=== PATIENT | female | born 1945 | race Caucasian/White ===

== ENCOUNTER 2018-02-20 14:30 | Outpatient (RCR) | payer MEDICARE, SELFPAY ==
[2018-01-14 04:26] VITALS: TEMP 37.1
--- NOTE | 2018-01-21 15:29 | PT.OIE ---
Current Diagnoses Pain in left hip (01/21/18) Low back pain (01/21/18) Past Medical History (Last Updated 01/14/18 @ 03:14 by Luis Zamudio DO) Gout (Acute) Physical Therapy Initial Evaluation PT-OP-B Current Condition Start: 01/21/18 13:35 Freq: Status: Active Protocol: Activity Type Activity Date Activity User E-Sign Co-Sign Detail Recorded Client Recorded Date Recorded By Document 01/21/18 13:39 EA [id number] 01/21/18 13:45 EA 01/21/18 13:39 Current Condition [History of Current Condition] -Onset Date 08/2017 -Current Complaints 1. Localized low back pain 2. left hip pain -History of Current Condition Patient reports left hip pain onset abruptly with no injury or past surgery to left LE and back; states chronic back pain with onset years ago w regular 2 x a week of chriropractor service that helps temporarily. Left hip pain aggravates weight bering mobility and relief w/ rest. Patient reports x-rays taken to hip and back with degenerative jont disease. -Prior Treatments and Tests Left knee meniscus PT treatment 2015 [Treatment Goals] -Patient/Caregiver Goals Patient wants to decrease pain to left hip and low back minimally. [Prior Functional Status] -Baseline Function- ADL's Independent -Baseline Function- Recreation/Hobbies Pool exercises x 3-4 /week [Personal Factors] -Other Personal Factors That May Obesity; Effect Therapy/Recovery chronic symtoms . PT-OP-C Subjective Start: 01/21/18 13:35 Freq: Status: Active Protocol: Activity Type Activity Date Activity User E-Sign Co-Sign Detail Recorded Client Recorded Date Recorded By Document 01/21/18 13:50 MARTÍN [id number] 01/21/18 15:13 EA 01/21/18 13:50 OP-PT Subjective [Patient Comments] -Patient Comments Patient c/o difficulty of sleeping at night and walking due to localized back pain rated 7/10 and left hip/ inner thigh pain rated 5/10 Patient Questionnaires [Oswestry Low Back Index] -Oswestry Impairment 40 to 59% Impaired (Score 40-59) OP-PT Pain Assessment [Pain Assessment Grid] -Paper Pain Assessment Grid Completed Yes [Location] Left Groin -Description Sharp Tender With Movement -Frequency Intermittent -Pain Aggravating Factors Standing Walking Stair Climbing -Pain Alleviating Factors Medication Lower Back -Description Aching Tightness -Frequency Intermittent -Pain Aggravating Factors Position Walking -Pain Alleviating Factors Medication [Home Pain Medication Use] -Pain Medications Used Yes [Pain Behaviors] -Pain Behaviors Guarding PT-OP-J Posture/Palpation/Skin Start: 01/21/18 13:35 Freq: Status: Active Protocol: Activity Type Activity Date Activity User E-Sign Co-Sign Detail Recorded Client Recorded Date Recorded By Document 01/21/18 13:50 MARTÍN [id number] 01/21/18 15:13 EA 01/21/18 13:50 Posture Evaluation [Position] Standing -Evaluation View Lateral -L-Spine Posture Increased Lordosis -Pelvis Posture (L) Rotated Anterior (R) Rotated Anterior -Hip Posture (L) Flexed -Knee Posture (L) Genu Valgus (R) Genu Valgus Palpation Assessment [Location] Two -Palpation Location Left hip adductors. -Palpation Findings Tenderness One -Palpation Location Biletaral paralumbars, upper glueteals , periformis -Palpation Findings Tenderness PT-OP-K Range of Motion Start: 01/21/18 13:35 Freq: Status: Active Protocol: Activity Type Activity Date Activity User E-Sign Co-Sign Detail Recorded Client Recorded Date Recorded By Document 01/21/18 13:50 MARTÍN [id number] 01/21/18 15:13 EA 01/21/18 13:50 Lumbar Spine Range of Motion [Lumbar Spine] Active Percentage -Testing Position standing -Flexion 85 -Extension 85 -Rotation Left 75 -Rotation Right 75 -Lateral Flexion Left 60 -Lateral Flexion Right 60 -ROM Limitations Soft Tissue Tightness Pain Hip Goniometric Range of Motion [Hip] Measured in Degrees Left -Testing Position Supine -Abduction 30 [Hip ROM Limitations] -Hip ROM Limitations Soft Tissue Tightness Pain PT-OP-M Strength Start: 01/21/18 13:35 Freq: Status: Active Protocol: Activity Type Activity Date Activity User E-Sign Co-Sign Detail Recorded Client Recorded Date Recorded By Document 01/21/18 13:50 MARTÍN [id number] 01/21/18 15:13 EA 01/21/18 13:50 Trunk Strength [Trunk Manual Muscle Testing] -Flexion 3- Fair- -Extension 3- Fair- -Rotation Left 3- Fair- -Rotation Right 3- Fair- -Lateral Flexion Left 3- Fair- -Lateral Flexion Right 3- Fair- Hip Strength [Hip Manual Muscle Testing] Left -Flexion (L2) 4+ Good+ -Extension (S1) 4+ Good+ -Abduction 4+ Good+ -Adduction 3- Fair- -External Rotation 4+ Good+ -Internal Rotation 4+ Good+ PT-OP-Q Treatments Start: 01/21/18 13:35 Freq: Status: Active Protocol: Activity Type Activity Date Activity User E-Sign Co-Sign Detail Recorded Client Recorded Date Recorded By Document 01/21/18 13:50 EA [id number] 01/21/18 15:13 EA 01/21/18 13:50 Self-Care/Home Management Treatment [Education] -Patient Education Body Mechanics Home Exercise Program Pain Management PT-OP-T Assessment and Plan Start: 01/21/18 13:35 Freq: Status: Active Protocol: Activity Type Activity Date Activity User E-Sign Co-Sign Detail Recorded Client Recorded Date Recorded By Document 01/21/18 13:50 EA [id number] 01/21/18 15:13 EA 01/21/18 13:50 Physical Therapy Assessment [Rehab Potential] -Rehabilitation Potential Fair [Evaluation Complexity] -Number of Personal Factors/ 3 or More Comorbidities -Number of Body Systems Impaired 3 -Clinical Presentation at Evaluation Evolving [Impairments] -Impairments Activity Tolerance Pain Posture ROM Strength [Goals] Three -Impairment Left hip ADD weakness -Welding [employer] Goal (LTG) Patient will exhibits 4/5 strength to left hip ADD w/ no pain. Two -Impairment Posture: Increased lumbar lordosis -Welding [employer] Goal (LTG) Patient will exhibit neutral lumbar lordosis to prevent further beomechanical spinal joint stress. -LTG Duration 4 wks One -Impairment Moderate left hip and low back tenderness -Welding [employer] Goal (LTG) Patient will exhibits slight tenderness to left hip and low back area to enable patient perform functional activities with increase tolerance. -LTG Duration 4 weeks [Assessment Summary] -Assessment Pleasant 72 y/o F patient with a diagnosis of localized left hip pain and low back pain presented w/ signs and symptoms consistent with special test to mechanical low back and strain to left hip adductor. Due to this pain, patient seating, standing and weight bearin functional is limited. In my professional opinion, patient requires skilled PT for the duration of 8 weeks to address the aforementioned issues. Due to comorbidities and chronicity of condition, patient have fair potential for recovery. Physical Therapy Plan [Frequency and Duration] -Frequency of Treatment 2x/Week -Plan of Care Start Date 01/21/18 -Plan of Care End Date 03/18/18 [Therapeutic Interventions] -Therapeutic Interventions Home Exercise Program Joint Mobilizations Manual Therapy Self-Care/Home Management Soft Tissue Mobilization Therapeutic Exercises -Modalities Cold Pack/Ice Massage Electric Stimulation Hot Packs Ultrasound Provider Signature Date
--- NOTE | 2018-01-21 15:30 | PT.OPPOC ---
Current Diagnoses Pain in left hip (01/21/18) Low back pain (01/21/18) Provider Visit Care Team Role Provider Type Nichol Robles MD Attending Provider Physician Family Provider Primary Care Provider Specialty: Internal Medicine Address: [address] [place] [address], [id number] Email: Plan Of Care PT-OP-T Assessment and Plan Start: 01/21/18 13:35 Freq: Status: Active Protocol: Document 01/21/18 13:50 EA (Rec: 01/21/18 15:13 EA [id number]) Physical Therapy Assessment Rehab Potential Rehabilitation Potential Fair Evaluation Complexity Number of Personal Factors/Comorbidities 3 or More Number of Body Systems Impaired 3 Clinical Presentation at Evaluation Evolving Impairments Impairments Activity Tolerance Pain Posture ROM Strength Goals Three Impairment Left hip ADD weakness Skilled Nursing Goal (LTG) Patient will exhibits 4/5 strength to left hip ADD w/ no pain. Two Impairment Posture: Increased lumbar lordosis Skilled Nursing Goal (LTG) Patient will exhibit neutral lumbar lordosis to prevent further beomechanical spinal joint stress. LTG Duration 4 wks One Impairment Moderate left hip and low back tenderness Skilled Nursing Goal (LTG) Patient will exhibits slight tenderness to left hip and low back area to enable patient perform functional activities with increase tolerance. LTG Duration 4 weeks Assessment Summary Assessment Pleasant 72 y/o F patient with a diagnosis of localized left hip pain and low back pain presented w/ signs and symptoms consistent with special test to mechanical low back and strain to left hip adductor. Due to this pain, patient seating, standing and weight bearin functional is limited. In my professional opinion, patient requires skilled PT for the duration of 8 weeks to address the aforementioned issues. Due to comorbidities and chronicity of condition, patient have fair potential for recovery. Physical Therapy Plan Frequency and Duration Frequency of Treatment 2x/Week Plan of Care Start Date 01/21/18 Plan of Care End Date 03/18/18 Therapeutic Interventions Therapeutic Interventions Home Exercise Program Joint Mobilizations Manual Therapy Self-Care/Home Management Soft Tissue Mobilization Therapeutic Exercises Modalities Cold Pack/Ice Massage Electric Stimulation Hot Packs Ultrasound Plan of Care Dates Plan of Care Start Date 01/21/18 Plan of Care End Date 03/18/18 Please Sign and Return: I have reviewed this Plan of Care and certify that the skilled therapy services above are required to meet the patient???s needs. Physician Signature Date Printed Name and Credentials
--- NOTE | 2018-01-23 17:22 | PT.OTN ---
Physical Therapy Treatment Note PT-OP-B Current Condition Start: 01/21/18 13:35 Freq: Status: Active Protocol: Document 01/21/18 13:39 EA (Rec: 01/21/18 13:45 EA [id number]) Current Condition History of Current Condition Onset Date 08/2017 Current Complaints 1. Localized low back pain 2. left hip pain History of Current Condition Patient reports left hip pain onset abruptly with no injury or past surgery to left LE and back; states chronic back pain with onset years ago w regular 2 x a week of chriropractor service that helps temporarily . Left hip pain aggravates weight bering mobility and relief w/ rest. Patient reports x-rays taken to hip and back with degenerative jont disease. Prior Treatments and Tests Left knee meniscus PT treatment 2015 Treatment Goals Patient/Caregiver Goals Patient wants to decrease pain to left hip and low back minimally. Prior Functional Status Baseline Function- ADL's Independent Baseline Function- Recreation/Hobbies Pool exercises x 3-4 /week Personal Factors Other Personal Factors That May Effect Obesity; chronic symtoms. Therapy/Recovery PT-OP-C Subjective Start: 01/21/18 13:35 Freq: Status: Active Protocol: Document 01/23/18 14:30 GGD (Rec: 01/23/18 17:22 GGD [id number]) OP-PT Subjective Patient Comments Patient Comments Pt state she is having pain into her groin today. PT-OP-J Posture/Palpation/Skin Start: 01/21/18 13:35 Freq: Status: Active Protocol: Document 01/21/18 13:50 EA (Rec: 01/21/18 15:13 EA [id number]) Posture Evaluation Position Standing Evaluation View Lateral L-Spine Posture Increased Lordosis Pelvis Posture (L) Rotated Anterior (R) Rotated Anterior Hip Posture (L) Flexed Knee Posture (L) Genu Valgus (R) Genu Valgus Palpation Assessment Location Two Palpation Location Left hip adductors. Palpation Findings Tenderness One Palpation Location Biletaral paralumbars, upper glueteals, periformis Palpation Findings Tenderness PT-OP-K Range of Motion Start: 01/21/18 13:35 Freq: Status: Active Protocol: Document 01/21/18 13:50 EA (Rec: 01/21/18 15:13 EA [id number]) Lumbar Spine Range of Motion Lumbar Spine Active Percentage Testing Position standing Flexion 85 Extension 85 Rotation Left 75 Rotation Right 75 Lateral Flexion Left 60 Lateral Flexion Right 60 ROM Limitations Soft Tissue Tightness Pain Hip Goniometric Range of Motion Hip Measured in Degrees Left Testing Position Supine Abduction 30 Hip ROM Limitations Hip ROM Limitations Soft Tissue Tightness Pain PT-OP-M Strength Start: 01/21/18 13:35 Freq: Status: Active Protocol: Document 01/21/18 13:50 EA (Rec: 01/21/18 15:13 EA [id number]) Trunk Strength Trunk Manual Muscle Testing Flexion 3- Fair- Extension 3- Fair- Rotation Left 3- Fair- Rotation Right 3- Fair- Lateral Flexion Left 3- Fair- Lateral Flexion Right 3- Fair- Hip Strength Hip Manual Muscle Testing Left Flexion (L2) 4+ Good+ Extension (S1) 4+ Good+ Abduction 4+ Good+ Adduction 3- Fair- External Rotation 4+ Good+ Internal Rotation 4+ Good+ PT-OP-Q Treatments Start: 01/21/18 13:35 Freq: Status: Active Protocol: Document 01/23/18 14:30 GGD (Rec: 01/23/18 17:22 GGD [email or web address]) Cardio Equipment Recumbent Elliptical ([employer]) Duration (Minutes) 6 Resistance 1 Therapeutic Exercises Supine Exercises 8 Supine Exercise Name Hip ABD Side bilateral Resistance Level 2 Equipment Used Thera band Reps/Minutes 10 7 Supine Exercise Name Hip add Side bilateral Equipment Used ball Reps/Minutes 10 6 Supine Exercise Name Bridges Reps/Minutes 10 5 Supine Exercise Name PPT Reps/Minutes 5 x 5 sec 4 Supine Exercise Name glute sets Side bilateral Reps/Minutes 5 x 5 sec 3 Supine Exercise Name adductor str Side bilateral Reps/Minutes 2 2 Supine Exercise Name Pirif str Side bilateral Reps/Minutes 2 1 Supine Exercise Name Hamstring str Side bilateral Reps/Minutes 2 PT-OP-R Modalities Start: 01/21/18 13:35 Freq: Status: Active Protocol: Document 01/23/18 14:30 GGD (Rec: 01/23/18 17:22 GGD [email or web address]) Hot Pack/Cold Pack Treatment Hot Pack Location L/S Patient Position Hooklying Treatment Duration (minutes) 10 Patient Tolerance Good PT-OP-T Assessment and Plan Start: 01/21/18 13:35 Freq: Status: Active Protocol: Document 01/23/18 14:30 GGD (Rec: 01/23/18 17:22 [email or web address] [email or web address]) Physical Therapy Assessment Assessment Summary Assessment Pt need modification for exercise tolerance. Was able to do all exercises with good pain control. Physical Therapy Plan Frequency and Duration Frequency of Treatment 2x/Week Plan of Care Start Date 01/21/18 Plan of Care End Date 03/18/18 Next Visit Focus/Plan Next Visit Plan Progress stretching, give HEP and hip strengthening.
--- NOTE | 2018-01-27 14:55 | PT.OTN ---
Physical Therapy Treatment Note PT-OP-A Visit Information Start: 01/21/18 13:35 Freq: Status: Active Protocol: Document 01/27/18 13:41 LRN (Rec: 01/27/18 14:48 LRN [id number]) Out-Patient Physical Therapy Visit Information Visit Information Visit Type Treatment Note Visit Start Time 13:40 Visit Stop Time 14:36 Total Visit Minutes 56 Visit Number 3 Number of PLANT AND EQUIPMENT WORKER Visits 1 Evaluation Information Evaluation Date 01/21/18 PT-OP-B Current Condition Start: 01/21/18 13:35 Freq: Status: Active Protocol: Document 01/21/18 13:39 EA (Rec: 01/21/18 13:45 EA [id number]) Current Condition History of Current Condition Onset Date 08/2017 Current Complaints 1. Localized low back pain 2. left hip pain History of Current Condition Patient reports left hip pain onset abruptly with no injury or past surgery to left LE and back; states chronic back pain with onset years ago w regular 2 x a week of chriropractor service that helps temporarily . Left hip pain aggravates weight bering mobility and relief w/ rest. Patient reports x-rays taken to hip and back with degenerative jont disease. Prior Treatments and Tests Left knee meniscus PT treatment 2016 Treatment Goals Patient/Caregiver Goals Patient wants to decrease pain to left hip and low back minimally. Prior Functional Status Baseline Function- ADL's Independent Baseline Function- Recreation/Hobbies Pool exercises x 3-4 /week Personal Factors Other Personal Factors That May Effect Obesity; chronic symtoms. Therapy/Recovery PT-OP-C Subjective Start: 01/21/18 13:35 Freq: Status: Active Protocol: Document 01/27/18 13:41 LRN (Rec: 01/27/18 14:45 LRN [id number]) OP-PT Subjective Patient Comments Patient Comments Terrible over the weekend due top L groin pain and LBP. Patient Reported Progress Same PT-OP-J Posture/Palpation/Skin Start: 01/21/18 13:35 Freq: Status: Active Protocol: Document 01/21/18 13:50 EA (Rec: 01/21/18 15:13 EA [id number]) Posture Evaluation Position Standing Evaluation View Lateral L-Spine Posture Increased Lordosis Pelvis Posture (L) Rotated Anterior (R) Rotated Anterior Hip Posture (L) Flexed Knee Posture (L) Genu Valgus (R) Genu Valgus Palpation Assessment Location Two Palpation Location Left hip adductors. Palpation Findings Tenderness One Palpation Location Bilateral paralumbars, upper gluteals, piriformis Palpation Findings Tenderness PT-OP-K Range of Motion Start: 01/21/18 13:35 Freq: Status: Active Protocol: Document 01/21/18 13:50 EA (Rec: 01/21/18 15:13 EA [id number]) Lumbar Spine Range of Motion Lumbar Spine Active Percentage Testing Position standing Flexion 85 Extension 85 Rotation Left 75 Rotation Right 75 Lateral Flexion Left 60 Lateral Flexion Right 60 ROM Limitations Soft Tissue Tightness Pain Hip Goniometric Range of Motion Hip Measured in Degrees Left Testing Position Supine Abduction 30 Hip ROM Limitations Hip ROM Limitations Soft Tissue Tightness Pain PT-OP-M Strength Start: 01/21/18 13:35 Freq: Status: Active Protocol: Document 01/21/18 13:50 EA (Rec: 01/21/18 15:13 EA [id number]) Trunk Strength Trunk Manual Muscle Testing Flexion 3- Fair- Extension 3- Fair- Rotation Left 3- Fair- Rotation Right 3- Fair- Lateral Flexion Left 3- Fair- Lateral Flexion Right 3- Fair- Hip Strength Hip Manual Muscle Testing Left Flexion (L2) 4+ Good+ Extension (S1) 4+ Good+ Abduction 4+ Good+ Adduction 3- Fair- External Rotation 4+ Good+ Internal Rotation 4+ Good+ PT-OP-Q Treatments Start: 01/21/18 13:35 Freq: Status: Active Protocol: Document 01/27/18 13:41 LRN (Rec: 01/27/18 14:45 LRN [id number]) Cardio Equipment Recumbent Elliptical ([employer]) Duration (Minutes) 6 Resistance 1 Seat Position 10 Other Mid range of leg motion Therapeutic Exercises Supine Exercises 10 Supine Exercise Name LE Roll in/out with deep breathing Side bilateral Reps/Minutes 10 reps Comments Extra reps with training 9 Supine Exercise Name DKTC stretch Side bilateral Reps/Minutes 8 3 Supine Exercise Name BKFO Side bilateral Reps/Minutes 1 rep Comments 60 sec hold 2 Supine Exercise Name Pirif str Side bilateral Reps/Minutes 2 1 Supine Exercise Name Hamstring str Side bilateral Reps/Minutes 3 reps each Comments 60 sec holds with 10 ankle pumps between 10 sec holds Manual Therapy Treatment Joint Mobilizations 1 Joint Correction for a posteriorly rotated L innominate Direction L SIJ Body Position Supine Reps/Duration 5 Comments Resist L hip flexion to rotate innominate anteriorly. Self-Care/Home Management Treatment Education Patient Education Home Exercise Program Other Education Issued and reviewed HEP of hip stretches: Drake BKFO, Fig 4, Piriformis, DKTC. PT-OP-R Modalities Start: 01/21/18 13:35 Freq: Status: Active Protocol: Document 01/27/18 13:41 LRN (Rec: 01/27/18 14:45 LRN [id number]) Hot Pack/Cold Pack Treatment Hot Pack Location L/S & L groin Patient Position Hooklying Treatment Duration (minutes) 10 Patient Tolerance Good PT-OP-T Assessment and Plan Start: 01/21/18 13:35 Freq: Status: Active Protocol: Document 01/27/18 13:41 LRN (Rec: 01/27/18 14:45 LRN [id number]) Physical Therapy Assessment Impairments Impairments Activity Tolerance Pain Posture ROM Strength Assessment Summary Assessment Pt appears to have a posteriorly rotated L innominate. She has fair to poor tolerance to exercise due to L hip limited mobility. Pt did not complain of much pain during stretches, but at end of ex's the pt reported being in a little more pain than when started with (7/10). She had + response to cryotherapy with a decrease i groin pain. Physical Therapy Plan Frequency and Duration Frequency of Treatment 2x/Week Plan of Care Start Date 01/21/18 Plan of Care End Date 03/18/18 Next Visit Focus/Plan Next Visit Plan Recheck pelvic positioning. Progress stretching, give HEP, hip strengthening as tolerated. Normalize posture. Teach proper transfers in/out of bed.
--- NOTE | 2018-01-29 17:07 | PT.OTN ---
Physical Therapy Treatment Note PT-OP-A Visit Information Start: 01/21/18 13:35 Freq: Status: Active Protocol: Document 01/29/18 16:57 GGD (Rec: 01/29/18 17:06 GGD [email or web address]) Out-Patient Physical Therapy Visit Information Visit Information Visit Type Treatment Note Visit Start Time 15:15 Visit Stop Time 16:10 Total Visit Minutes 50 Visit Number 4 Number of HAND THERMAL CUTTER Visits 1 Evaluation Information Evaluation Date 01/21/18 PT-OP-B Current Condition Start: 01/21/18 13:35 Freq: Status: Active Protocol: Document 01/21/18 13:39 EA (Rec: 01/21/18 13:45 EA [id number]) Current Condition History of Current Condition Onset Date 08/2017 Current Complaints 1. Localized low back pain 2. left hip pain History of Current Condition Patient reports left hip pain onset abruptly with no injury or past surgery to left LE and back; states chronic back pain with onset years ago w regular 2 x a week of chriropractor service that helps temporarily . Left hip pain aggravates weight bering mobility and relief w/ rest. Patient reports x-rays taken to hip and back with degenerative jont disease. Prior Treatments and Tests Left knee meniscus PT treatment 2016 Treatment Goals Patient/Caregiver Goals Patient wants to decrease pain to left hip and low back minimally. Prior Functional Status Baseline Function- ADL's Independent Baseline Function- Recreation/Hobbies Pool exercises x 3-4 /week Personal Factors Other Personal Factors That May Effect Obesity; chronic symtoms. Therapy/Recovery PT-OP-C Subjective Start: 01/21/18 13:35 Freq: Status: Active Protocol: Document 01/29/18 16:57 GGD (Rec: 01/29/18 17:06 GGD [email or web address]) OP-PT Subjective Patient Comments Patient Comments Pt states that she still having a lot of groin pain. PT-OP-J Posture/Palpation/Skin Start: 01/21/18 13:35 Freq: Status: Active Protocol: Document 01/21/18 13:50 EA (Rec: 01/21/18 15:13 EA [id number]) Posture Evaluation Position Standing Evaluation View Lateral L-Spine Posture Increased Lordosis Pelvis Posture (L) Rotated Anterior (R) Rotated Anterior Hip Posture (L) Flexed Knee Posture (L) Genu Valgus (R) Genu Valgus Palpation Assessment Location Two Palpation Location Left hip adductors. Palpation Findings Tenderness One Palpation Location Biletaral paralumbars, upper glueteals, periformis Palpation Findings Tenderness PT-OP-K Range of Motion Start: 01/21/18 13:35 Freq: Status: Active Protocol: Document 01/21/18 13:50 EA (Rec: 01/21/18 15:13 EA [id number]) Lumbar Spine Range of Motion Lumbar Spine Active Percentage Testing Position standing Flexion 85 Extension 85 Rotation Left 75 Rotation Right 75 Lateral Flexion Left 60 Lateral Flexion Right 60 ROM Limitations Soft Tissue Tightness Pain Hip Goniometric Range of Motion Hip Measured in Degrees Left Testing Position Supine Abduction 30 Hip ROM Limitations Hip ROM Limitations Soft Tissue Tightness Pain PT-OP-M Strength Start: 01/21/18 13:35 Freq: Status: Active Protocol: Document 01/21/18 13:50 EA (Rec: 01/21/18 15:13 EA [id number]) Trunk Strength Trunk Manual Muscle Testing Flexion 3- Fair- Extension 3- Fair- Rotation Left 3- Fair- Rotation Right 3- Fair- Lateral Flexion Left 3- Fair- Lateral Flexion Right 3- Fair- Hip Strength Hip Manual Muscle Testing Left Flexion (L2) 4+ Good+ Extension (S1) 4+ Good+ Abduction 4+ Good+ Adduction 3- Fair- External Rotation 4+ Good+ Internal Rotation 4+ Good+ PT-OP-Q Treatments Start: 01/21/18 13:35 Freq: Status: Active Protocol: Document 01/29/18 16:57 GGD (Rec: 01/29/18 17:06 GGD [email or web address]) Cardio Equipment Recumbent Elliptical (Biode[employer]) Duration (Minutes) 6 Resistance 1 Seat Position 10 Therapeutic Exercises Supine Exercises 3 Supine Exercise Name BKFO Side bilateral Reps/Minutes 1 rep Comments 60 sec hold 2 Supine Exercise Name Pirif str Side bilateral Reps/Minutes 2 1 Supine Exercise Name Hamstring str Side bilateral Reps/Minutes 3 reps each Comments 60 sec holds with 10 ankle pumps between 10 sec holds Therapeutic Activity Therapeutic Activity 1 Name bed mobility Reps/Minutes 3 Comments Log roll to the right supine < > sit Manual Therapy Treatment Joint Mobilizations 1 Joint Correction for a posteriorly rotated L innominate Direction L SIJ Body Position Supine Reps/Duration 5 Comments Resist L hip flexion to rotate innominate anteriorly. Self-Care/Home Management Treatment Education Other Education HEP for log roll. PT-OP-R Modalities Start: 01/21/18 13:35 Freq: Status: Active Protocol: Document 01/29/18 16:57 GGD (Rec: 01/29/18 17:06 GGD [email or web address]) Hot Pack/Cold Pack Treatment Cold Pack Location L groin Patient Position Hooklying Treatment Duration (minutes) 10 Patient Tolerance Good PT-OP-T Assessment and Plan Start: 01/21/18 13:35 Freq: Status: Active Protocol: Document 01/29/18 16:57 GGD (Rec: 01/29/18 17:06 GGD [email or web address]) Physical Therapy Assessment Assessment Summary Assessment Pt pain free with log roll for bed mobility she does have limit tolerance to exercise due to pain. Physical Therapy Plan Frequency and Duration Frequency of Treatment 2x/Week Plan of Care Start Date 01/21/18 Plan of Care End Date 03/18/18 Next Visit Focus/Plan Next Visit Plan Review HEP and log roll. Progress strengthening
--- NOTE | 2018-02-04 16:18 | PT.OTN ---
Physical Therapy Treatment Note PT-OP-A Visit Information Start: 01/21/18 13:35 Freq: Status: Active Protocol: Document 02/04/18 10:30 GGD (Rec: 02/04/18 16:16 GGD [email or web address]) Out-Patient Physical Therapy Visit Information Visit Information Visit Type Treatment Note Visit Start Time 10:30 Visit Stop Time 11:20 Total Visit Minutes 50 Visit Number 5 Number of COVER MAKER Visits 2 Evaluation Information Evaluation Date 01/21/18 PT-OP-B Current Condition Start: 01/21/18 13:35 Freq: Status: Active Protocol: Document 01/21/18 13:39 EA (Rec: 01/21/18 13:45 EA [id number]) Current Condition History of Current Condition Onset Date 08/2017 Current Complaints 1. Localized low back pain 2. left hip pain History of Current Condition Patient reports left hip pain onset abruptly with no injury or past surgery to left LE and back; states chronic back pain with onset years ago w regular 2 x a week of chriropractor service that helps temporarily . Left hip pain aggravates weight bering mobility and relief w/ rest. Patient reports x-rays taken to hip and back with degenerative jont disease. Prior Treatments and Tests Left knee meniscus PT treatment 2016 Treatment Goals Patient/Caregiver Goals Patient wants to decrease pain to left hip and low back minimally. Prior Functional Status Baseline Function- ADL's Independent Baseline Function- Recreation/Hobbies Pool exercises x 3-4 /week Personal Factors Other Personal Factors That May Effect Obesity; chronic symtoms. Therapy/Recovery PT-OP-C Subjective Start: 01/21/18 13:35 Freq: Status: Active Protocol: Document 02/04/18 10:30 GGD (Rec: 02/04/18 16:16 GGD [email or web address]) OP-PT Subjective Patient Comments Patient Comments Pt states thae she had pain with standing in the kitchen cooking and doing dishes. PT-OP-J Posture/Palpation/Skin Start: 01/21/18 13:35 Freq: Status: Active Protocol: Document 01/21/18 13:50 EA (Rec: 01/21/18 15:13 EA [id number]) Posture Evaluation Position Standing Evaluation View Lateral L-Spine Posture Increased Lordosis Pelvis Posture (L) Rotated Anterior (R) Rotated Anterior Hip Posture (L) Flexed Knee Posture (L) Genu Valgus (R) Genu Valgus Palpation Assessment Location Two Palpation Location Left hip adductors. Palpation Findings Tenderness One Palpation Location Biletaral paralumbars, upper glueteals, periformis Palpation Findings Tenderness PT-OP-K Range of Motion Start: 01/21/18 13:35 Freq: Status: Active Protocol: Document 01/21/18 13:50 EA (Rec: 01/21/18 15:13 EA [id number]) Lumbar Spine Range of Motion Lumbar Spine Active Percentage Testing Position standing Flexion 85 Extension 85 Rotation Left 75 Rotation Right 75 Lateral Flexion Left 60 Lateral Flexion Right 60 ROM Limitations Soft Tissue Tightness Pain Hip Goniometric Range of Motion Hip Measured in Degrees Left Testing Position Supine Abduction 30 Hip ROM Limitations Hip ROM Limitations Soft Tissue Tightness Pain PT-OP-M Strength Start: 01/21/18 13:35 Freq: Status: Active Protocol: Document 01/21/18 13:50 EA (Rec: 01/21/18 15:13 EA [id number]) Trunk Strength Trunk Manual Muscle Testing Flexion 3- Fair- Extension 3- Fair- Rotation Left 3- Fair- Rotation Right 3- Fair- Lateral Flexion Left 3- Fair- Lateral Flexion Right 3- Fair- Hip Strength Hip Manual Muscle Testing Left Flexion (L2) 4+ Good+ Extension (S1) 4+ Good+ Abduction 4+ Good+ Adduction 3- Fair- External Rotation 4+ Good+ Internal Rotation 4+ Good+ PT-OP-Q Treatments Start: 01/21/18 13:35 Freq: Status: Active Protocol: Document 02/04/18 10:30 GGD (Rec: 02/04/18 16:16 GGD [email or web address]) Cardio Equipment Recumbent Elliptical ([employer]) Duration (Minutes) 8 Resistance 1 Seat Position 10 Therapeutic Exercises Supine Exercises 3 Supine Exercise Name BKFO Side bilateral Reps/Minutes 1 rep Comments 60 sec hold 2 Supine Exercise Name Pirif str Side bilateral Reps/Minutes 2 1 Supine Exercise Name Hamstring str Side bilateral Reps/Minutes 3 reps each Comments 60 sec holds with 10 ankle pumps between 10 sec holds Sidelying Exercises 2 Sidelying Exercise Name reverse Clamshells Side bilateral Reps/Minutes 15 1 Sidelying Exercise Name Clamshells Side bilateral Reps/Minutes 15 Standing Exercises 1 Standing Exercise Name Hip ABD, EXT, marches Side bilateral Reps/Minutes 10 Manual Therapy Treatment Joint Mobilizations 1 Joint Correction for a posteriorly rotated L innominate Direction L SIJ Body Position Supine Reps/Duration 5 Comments Resist L hip flexion to rotate innominate anteriorly. PT-OP-R Modalities Start: 01/21/18 13:35 Freq: Status: Active Protocol: Document 02/04/18 10:30 GGD (Rec: 02/04/18 16:16 GGD [email or web address]) Hot Pack/Cold Pack Treatment Cold Pack Location L/S and L groin Treatment Duration (minutes) 10 Patient Tolerance Good PT-OP-T Assessment and Plan Start: 01/21/18 13:35 Freq: Status: Active Protocol: Document 02/04/18 10:30 GGD (Rec: 02/04/18 16:18 GGD [email or web address]) Physical Therapy Assessment Goals Three Impairment Left hip ADD weakness Electronics Production Supervisor Goal (LTG) Patient will exhibits 4/5 strength to left hip ADD w/ no pain. Two Impairment Posture: Increased lumbar lordosis [facility] Goal (LTG) Patient will exhibit neutral lumbar lordosis to prevent further beomechanical spinal joint stress. LTG Duration 4 wks One Impairment Moderate left hip and low back tenderness [facility] Goal (LTG) Patient will exhibits slight tenderness to left hip and low back area to enable patient perform functional activities with increase tolerance. LTG Duration 4 weeks Assessment Summary Assessment Pt progressing with strength and decrease pain. Physical Therapy Plan Frequency and Duration Frequency of Treatment 2x/Week Plan of Care Start Date 01/21/18 Plan of Care End Date 03/18/18 Next Visit Focus/Plan Next Visit Plan Progress strengthening and HEP
--- NOTE | 2018-02-17 17:01 | PT.OTN ---
Current Diagnoses Pain in left hip (02/17/18) Low back pain (02/17/18) Physical Therapy Treatment Note PT-OP-A Visit Information Start: 01/21/18 13:35 Freq: Status: Active Protocol: Document 02/17/18 16:36 DLM (Rec: 02/17/18 16:58 DLM [email or web address]) Out-Patient Physical Therapy Visit Information Visit Information Visit Type Treatment Note Visit Start Time 14:36 Visit Stop Time 15:30 Total Visit Minutes 54 Visit Number 6 Number of GREY GOODS MARKER Visits 0 Evaluation Information Evaluation Date 01/21/18 PT-OP-B Current Condition Start: 01/21/18 13:35 Freq: Status: Active Protocol: Document 01/21/18 13:39 EA (Rec: 01/21/18 13:45 EA [id number]) Current Condition History of Current Condition Onset Date 08/2017 Current Complaints 1. Localized low back pain 2. left hip pain History of Current Condition Patient reports left hip pain onset abruptly with no injury or past surgery to left LE and back; states chronic back pain with onset years ago w regular 2 x a week of chriropractor service that helps temporarily . Left hip pain aggravates weight bering mobility and relief w/ rest. Patient reports x-rays taken to hip and back with degenerative jont disease. Prior Treatments and Tests Left knee meniscus PT treatment 2016 Treatment Goals Patient/Caregiver Goals Patient wants to decrease pain to left hip and low back minimally. Prior Functional Status Baseline Function- ADL's Independent Baseline Function- Recreation/Hobbies Pool exercises x 3-4 /week Personal Factors Other Personal Factors That May Effect Obesity; chronic symtoms. Therapy/Recovery PT-OP-C Subjective Start: 01/21/18 13:35 Freq: Status: Active Protocol: Document 02/17/18 16:36 DLM (Rec: 02/17/18 16:58 DLM [email or web address]) OP-PT Subjective Patient Comments Patient Comments She had a lot of pain after last visit and could barely walk the next day. She stopped doing the exercises at home because of the pain. She is also having pain getting in the car. Patient Reported Progress Worse OP-PT Pain Assessment Location Left Groin Intensity 6 Scale Used Numeric (1 - 10) Description Aching Radiating Frequency Frequent Radiating Location into thigh Other Pain Aggravating Factors exercises last visit, gettin into car Pain Alleviating Factors Cold Lower Back Intensity 6 Scale Used Numeric (1 - 10) Description Aching Frequency Frequent Radiating Location left hip area Pain Behaviors Pain Behaviors Facial Grimacing Guarding Holding Area Comments Pain Comments modified her exercies to better manage her pain PT-OP-J Posture/Palpation/Skin Start: 01/21/18 13:35 Freq: Status: Active Protocol: Document 01/21/18 13:50 EA (Rec: 01/21/18 15:13 EA [id number]) Posture Evaluation Position Standing Evaluation View Lateral L-Spine Posture Increased Lordosis Pelvis Posture (L) Rotated Anterior (R) Rotated Anterior Hip Posture (L) Flexed Knee Posture (L) Genu Valgus (R) Genu Valgus Palpation Assessment Location Two Palpation Location Left hip adductors. Palpation Findings Tenderness One Palpation Location Biletaral paralumbars, upper glueteals, periformis Palpation Findings Tenderness PT-OP-K Range of Motion Start: 01/21/18 13:35 Freq: Status: Active Protocol: Document 01/21/18 13:50 EA (Rec: 01/21/18 15:13 EA [id number]) Lumbar Spine Range of Motion Lumbar Spine Active Percentage Testing Position standing Flexion 85 Extension 85 Rotation Left 75 Rotation Right 75 Lateral Flexion Left 60 Lateral Flexion Right 60 ROM Limitations Soft Tissue Tightness Pain Hip Goniometric Range of Motion Hip Measured in Degrees Left Testing Position Supine Abduction 30 Hip ROM Limitations Hip ROM Limitations Soft Tissue Tightness Pain PT-OP-M Strength Start: 01/21/18 13:35 Freq: Status: Active Protocol: Document 01/21/18 13:50 EA (Rec: 01/21/18 15:13 EA [id number]) Trunk Strength Trunk Manual Muscle Testing Flexion 3- Fair- Extension 3- Fair- Rotation Left 3- Fair- Rotation Right 3- Fair- Lateral Flexion Left 3- Fair- Lateral Flexion Right 3- Fair- Hip Strength Hip Manual Muscle Testing Left Flexion (L2) 4+ Good+ Extension (S1) 4+ Good+ Abduction 4+ Good+ Adduction 3- Fair- External Rotation 4+ Good+ Internal Rotation 4+ Good+ PT-OP-Q Treatments Start: 01/21/18 13:35 Freq: Status: Active Protocol: Document 02/17/18 16:36 DLM (Rec: 02/17/18 16:58 DLM [email or web address]) Cardio Equipment Recumbent Elliptical ([employer]) Duration (Minutes) 6 Resistance 1 Seat Position 10 Other no increase in pain Therapeutic Exercises Supine Exercises 11 Supine Exercise Name Abdominal isometric in hooklying Reps/Minutes 10 reps with 5 sec holds Comments no increase in pain 10 Supine Exercise Name LE Roll in/out with deep breathing Side bilateral Reps/Minutes 10 reps Comments knees extended 9 Supine Exercise Name single knee to chest Side bilateral Equipment Used towel used to assist Reps/Minutes 3 reps, 20 sec hold Comments pt unable to do DKTC 8 Supine Exercise Name Hip ABD in hooklying Side bilateral Resistance Level 2 Equipment Used theraband Reps/Minutes x 10 reps 7 Supine Exercise Name Hip ADD in hooklying Side bilateral Equipment Used ball Reps/Minutes 10 6 Supine Exercise Name Bridges Comments unable to complete, very painful 4 Supine Exercise Name glute sets Side bilateral Reps/Minutes 5 reps x 5 sec holds 3 Supine Exercise Name BKFO, one LE at a time Side bilateral Reps/Minutes 10 reps Comments no hold due to pain, limited ROM on left due to pain Sidelying Exercises 1 Sidelying Exercise Name Clamshells Side bilateral Reps/Minutes 15 Therapeutic Activity Therapeutic Activity 1 Comments reviewed log rolling to protect her back Also verbally educated her to sit down before placing her feet in the car to avoid back and hip stress Manual Therapy Treatment Soft Tissue Mobilization 1 Body Location lumbosacral area Mobilization Type Myofascial Release Strumming Sustained Pressure Intensity/Depth Moderate Body Position Prone Comments soft tissue tightness greater on right with tenderness Self-Care/Home Management Treatment Education Patient Education Home Exercise Program Other Education editted HEP- only do BKFO one LE at a time and single knee to chest PT-OP-R Modalities Start: 01/21/18 13:35 Freq: Status: Active Protocol: Document 02/17/18 16:36 DLM (Rec: 02/17/18 16:58 DLM [email or web address]) Hot Pack/Cold Pack Treatment Cold Pack Location L/S and L groin Patient Position Hooklying Treatment Duration (minutes) 10 Patient Tolerance Good Comments she reports ice is helping to manage her pain PT-OP-T Assessment and Plan Start: 01/21/18 13:35 Freq: Status: Active Protocol: Document 02/17/18 16:36 DLM (Rec: 02/17/18 16:58 DLM [email or web address]) Physical Therapy Assessment Impairments Impairments Activity Tolerance Pain Posture ROM Soft Tissue Mobility Strength Progress Towards Goals Progress Comments no progress towards goals this visit due to recent increase in her pain after last visit Assessment Summary Assessment Pt had a lot of pain after visit. Modified her treatment this visit to manage her pain. Will need to advance her exercises more slowly in the future. She reports no increase pain with this visit. Her gait pattern improved during this visit so she had a more normal pattern leaving therapy compared to her arrival. Physical Therapy Plan Frequency and Duration Frequency of Treatment 2x/Week Plan of Care Start Date 01/21/18 Plan of Care End Date 03/18/18 Next Visit Focus/Plan Next Note Type Treatment Note Next Visit Plan Review her HEP and her pain level the day after this visit . Recheck pelvic positioning if her pain allows next visit.
--- NOTE | 2018-02-20 16:39 | PT.OTN ---
Current Diagnoses Pain in left hip (02/20/18) Low back pain (02/20/18) Physical Therapy Treatment Note PT-OP-A Visit Information Start: 01/21/18 13:35 Freq: Status: Active Protocol: Document 02/20/18 14:35 GGD (Rec: 02/20/18 16:38 GGD [email or web address]) Out-Patient Physical Therapy Visit Information Visit Information Visit Type Treatment Note Visit Start Time 14:35 Visit Stop Time 13:25 Total Visit Minutes 50 Visit Number / Number of ACID LEVELER Visits 1 Evaluation Information Evaluation Date 01/21/18 PT-OP-B Current Condition Start: 01/21/18 13:35 Freq: Status: Active Protocol: Document 01/21/18 13:39 EA (Rec: 01/21/18 13:45 EA [id number]) Current Condition History of Current Condition Onset Date 08/2017 Current Complaints 1. Localized low back pain 2. left hip pain History of Current Condition Patient reports left hip pain onset abruptly with no injury or past surgery to left LE and back; states chronic back pain with onset years ago w regular 2 x a week of chriropractor service that helps temporarily . Left hip pain aggravates weight bering mobility and relief w/ rest. Patient reports x-rays taken to hip and back with degenerative jont disease. Prior Treatments and Tests Left knee meniscus PT treatment 2016 Treatment Goals Patient/Caregiver Goals Patient wants to decrease pain to left hip and low back minimally. Prior Functional Status Baseline Function- ADL's Independent Baseline Function- Recreation/Hobbies Pool exercises x 3-4 /week Personal Factors Other Personal Factors That May Effect Obesity; chronic symtoms. Therapy/Recovery PT-OP-C Subjective Start: 01/21/18 13:35 Freq: Status: Active Protocol: Document 02/20/18 14:35 GGD (Rec: 02/20/18 16:38 GGD [email or web address]) OP-PT Subjective Patient Comments Patient Comments Pt states she still having a lot of pain. She has not had increase pain with HEP. Protocol: Document 02/20/18 14:35 GGD (Rec: 02/20/18 16:38 GGD [email or web address]) Cardio Equipment Recumbent Elliptical ([employer]) Duration (Minutes) 6 Resistance 1 Seat Position 10 Therapeutic Exercises Supine Exercises 11 Supine Exercise Name Abdominal isometric in hooklying Reps/Minutes 10 reps with 5 sec holds 10 Supine Exercise Name LE Roll in/out with deep breathing Side bilateral Reps/Minutes 10 reps Comments knees extended 9 Supine Exercise Name single knee to chest Side bilateral Equipment Used towel used to assist Reps/Minutes 3 reps, 20 sec hold 8 Supine Exercise Name Hip ABD in hooklying Side bilateral Resistance Level 2 Equipment Used theraband Reps/Minutes x 10 reps 7 Supine Exercise Name Hip ADD in hooklying Side bilateral Equipment Used ball Reps/Minutes 10 4 Supine Exercise Name glute sets Side bilateral Reps/Minutes 5 reps x 5 sec holds 3 Supine Exercise Name BKFO, one LE at a time Side bilateral Reps/Minutes 10 reps Comments no hold due to pain, limited ROM on left due to pain Manual Therapy Treatment Joint Mobilizations 1 Joint Correction for a posteriorly rotated L innominate Direction L SIJ Body Position Supine Reps/Duration 5 Comments Resist L hip flexion to rotate innominate anteriorly. PT-OP-R Modalities Start: 01/21/18 13:35 Freq: Status: Active Protocol: Document 02/20/18 14:35 GGD (Rec: 02/20/18 16:38 GGD [email or web address]) Hot Pack/Cold Pack Treatment Cold Pack Location L/S and L groin Patient Position Hooklying Treatment Duration (minutes) 10 Patient Tolerance Good PT-OP-T Assessment and Plan Start: 01/21/18 13:35 Freq: Status: Active Protocol: Document 02/20/18 14:35 GGD (Rec: 02/20/18 16:38 GGD [email or web address]) Physical Therapy Assessment Assessment Summary Assessment Pt needed modification of exercises to limit pain. She need cues for exercises. Physical Therapy Plan Frequency and Duration Frequency of Treatment 2x/Week Plan of Care Start Date 01/21/18 Plan of Care End Date 03/18/18 Next Visit Focus/Plan Next Note Type Treatment Note Next Visit Plan Review HEP and exercise technique
--- NOTE | 2018-04-16 17:25 | PT.OPDS ---
Current Diagnoses Pain in left hip (02/20/18) Low back pain (02/20/18) Provider Visit Care Team Role Provider Type Nichol Robles MD Attending Provider Physician Family Provider Primary Care Provider Specialty: Internal Medicine Address: [address] [place] [address], [id number] Email: Visit Number Visit Number 03/25 Discharge Summary PT-OP-B Current Condition Start: 01/21/18 13:35 Freq: Status: Active Protocol: Document 01/21/18 13:39 EA (Rec: 01/21/18 13:45 EA [id number]) Current Condition History of Current Condition Onset Date 08/2017 Current Complaints 1. Localized low back pain 2. left hip pain History of Current Condition Patient reports left hip pain onset abruptly with no injury or past surgery to left LE and back; states chronic back pain with onset years ago w regular 2 x a week of chriropractor service that helps temporarily . Left hip pain aggravates weight bering mobility and relief w/ rest. Patient reports x-rays taken to hip and back with degenerative jont disease. Prior Treatments and Tests Left knee meniscus PT treatment 2016 Treatment Goals Patient/Caregiver Goals Patient wants to decrease pain to left hip and low back minimally. Prior Functional Status Baseline Function- ADL's Independent Baseline Function- Recreation/Hobbies Pool exercises x 3-4 /week Personal Factors Other Personal Factors That May Effect Obesity; chronic symtoms. Therapy/Recovery PT-OP-C Subjective Start: 01/21/18 13:35 Freq: Status: Active Protocol: Document 04/16/18 17:19 EA (Rec: 04/16/18 17:25 EA [id number]) OP-PT Subjective Patient Comments Patient Comments By phone conversation today, patient states that she wants to discharge for skilled PT as she change er location of therapy. PT-OP-J Posture/Palpation/Skin Start: 01/21/18 13:35 Freq: Status: Active Protocol: Document 01/21/18 13:50 EA (Rec: 01/21/18 15:13 EA [id number]) Posture Evaluation Position Standing Evaluation View Lateral L-Spine Posture Increased Lordosis Pelvis Posture (L) Rotated Anterior (R) Rotated Anterior Hip Posture (L) Flexed Knee Posture (L) Genu Valgus (R) Genu Valgus Palpation Assessment Location Two Palpation Location Left hip adductors. Palpation Findings Tenderness One Palpation Location Biletaral paralumbars, upper glueteals, periformis Palpation Findings Tenderness PT-OP-K Range of Motion Start: 01/21/18 13:35 Freq: Status: Active Protocol: Document 01/21/18 13:50 EA (Rec: 01/21/18 15:13 EA [id number]) Lumbar Spine Range of Motion Lumbar Spine Active Percentage Testing Position standing Flexion 85 Extension 85 Rotation Left 75 Rotation Right 75 Lateral Flexion Left 60 Lateral Flexion Right 60 ROM Limitations Soft Tissue Tightness Pain Hip Goniometric Range of Motion Hip Measured in Degrees Left Testing Position Supine Abduction 30 Hip ROM Limitations Hip ROM Limitations Soft Tissue Tightness Pain PT-OP-M Strength Start: 01/21/18 13:35 Freq: Status: Active Protocol: Document 01/21/18 13:50 EA (Rec: 01/21/18 15:13 EA [id number]) Trunk Strength Trunk Manual Muscle Testing Flexion 3- Fair- Extension 3- Fair- Rotation Left 3- Fair- Rotation Right 3- Fair- Lateral Flexion Left 3- Fair- Lateral Flexion Right 3- Fair- Hip Strength Hip Manual Muscle Testing Left Flexion (L2) 4+ Good+ Extension (S1) 4+ Good+ Abduction 4+ Good+ Adduction 3- Fair- External Rotation 4+ Good+ Internal Rotation 4+ Good+ PT-OP-T Assessment and Plan Start: 01/21/18 13:35 Freq: Status: Active Protocol: Document 04/16/18 17:19 EA (Rec: 04/16/18 17:25 EA [id number]) Physical Therapy Assessment Assessment Summary Assessment Patient is discharge to PT per patient request. Physical Therapy Plan Discharge Physical Therapy Discharge Reasons No Longer Attending PT Discharge Comments Change PT location.
== END 2018-04-24 10:12 ==
LOC: PHYS 14:30
PROVIDERS: Family Provider Internal Medicine; PCP Internal Medicine; Visit Provider Internal Medicine
DX: M54.5 Low back pain (principal); M25.552 Pain in left hip
CPT/HCPCS: 97010; 97110; 97140; 97161; 97162; 97535

== ENCOUNTER → 2018-06-24 10:06 | Outpatient (CLI) | payer MEDICARE, SELFPAY ==
[2018-06-24 12:04] LABS: Add Manual Diff / Slide Review NO; Basophils Percent Auto 0.3 % (0-2); Eosinophils Percent Auto 1.9 % (2-4); Hematocrit 44.3 % (36-46); Lymphocytes Percent Auto 45.6 % (25-40); Mean Corpuscular HGB Conc 33.9 % (30-36); Mean Corpuscular Volume 97.2 fL (80-100); Neutrophils Absolute Auto 4800 /uL (3000-5900); Neutrophils Percent Auto 47.2 % (50-75); Platelet Count 240 X10^3/uL (150-400); Red Blood Cell Count 4.56 X10^6/uL (4.0-5.2); Red Cell Distribution Width 13.9 % (11.6-14.8); White Blood Cell Count 10.2 X10^3/uL (4.5-11.0)
[2018-06-24 13:08] LABS: Thyroid Stimulating Hormone 1.78 uIU/mL (0.47-4.68)
[2018-06-24 13:23] LABS: Alanine Aminotransferase 38 IU/L (9-52); Albumin 4.2 g/dL (3.5-5.0); Albumin Globulin Ratio 1.8 (1.0-2.8); Alkaline Phosphatase 96 U/L (38-126); Aspartate Aminotransferase 31 IU/L (14-36); BUN Creatinine Ratio 17.8 (6-22); Bilirubin Total 0.5 mg/dL (0.2-1.3); Blood Urea Nitrogen 16 mg/dL (7-17); Calcium 9.5 mg/dL (8.4-10.2); Carbon Dioxide 23 mmol/L (22-32); Chloride 106 mmol/L (98-107); Estimated Glomerular Filt Rate > 60.0 mL/min (>60); Globulin 2.3 g/dL (1.7-4.1); Glucose 138 mg/dL (80-110); Potassium 4.1 mmol/L (3.4-5.1); Sodium 143 mmol/L (137-145); Total Protein 6.5 g/dL (6.3-8.2)
[2018-06-24 20:28] LABS: HEMOLYSIS 16 (0-50); Vitamin B12 889 pg/mL (239-931)
== END ==
PROVIDERS: Family Provider Internal Medicine; PCP Internal Medicine; Visit Provider Student in an Organized Health Care Education/Training Program
DX: I10 Essential (primary) hypertension (principal); N18.9 Chronic kidney disease, unspecified; F32.9 Major depressive disorder, single episode, unspecified; D51.0 Vitamin B12 deficiency anemia due to intrinsic factor deficiency
CPT/HCPCS: 36415; 80053; 82607; 84443; 85025

== ENCOUNTER → 2018-08-13 13:58 | Outpatient (CLI) | payer MEDICARE, SELFPAY ==
--- NOTE | 2018-08-13 | DI.MG.S_ITS ---
BILATERAL DIGITAL SCREENING MAMMOGRAM 3D/2D WITH CAD: 08/13/2018 CLINICAL: Routine screening. Comparison is made to exams dated: 06/05/2017 mammogram, 01/08/2014 mammogram, and 08/25/2012 mammogram - [facility]. The tissue of both breasts is predominantly fatty. Current study was also evaluated with a Computer Aided Detection (CAD) system. There are benign calcifications in both breasts. No significant masses, calcifications, or other findings are seen in either breast. There has been no significant interval change. IMPRESSION: There is no mammographic evidence of malignancy. A 1 year screening mammogram is recommended. This exam was interpreted at Station ID: [id number]. NOTE: For mammograms, a report in lay terms will be sent to the patient. Approximately 15% of breast malignancies will not be visualized mammographically. In the management of a palpable breast mass, a negative mammogram must not discourage biopsy of a clinically suspicious lesion. Electronically Signed By: Salome calvillo/shivani:08/13/2018 17:25:29 letter sent: Normal Exam ACR BI-RADS Category 2: Benign Finding(s) 3342F
== END ==
PROVIDERS: Visit Provider Student in an Organized Health Care Education/Training Program
DX: Z12.31 Encounter for screening mammogram for malignant neoplasm of breast (principal); M85.851 Other specified disorders of bone density and structure, right thigh; Z78.0 Asymptomatic menopausal state; E07.9 Disorder of thyroid, unspecified; Z87.891 Personal history of nicotine dependence
CPT/HCPCS: 77063; 77067; 77080

== ENCOUNTER → 2018-10-27 14:41 | Outpatient (CLI) | payer MEDICARE, SELFPAY ==
--- NOTE | 2018-10-27 14:45 | DI.RAD.S_ITS ---
PROCEDURE: XR CHEST 2V INDICATIONS: DYSPNEA TECHNIQUE: 2 views of the chest were acquired. COMPARISON: [facility], , CHEST 2 VIEW, 04/21/2015, 16:49. FINDINGS: Surgical changes and devices: None. Lungs and pleura: Lungs are clear. No pleural effusions or pneumothorax. Mediastinum: Mediastinal contours are normal. Heart size is normal. Bones and chest wall: No suspicious bony abnormalities. Soft tissues appear unremarkable. IMPRESSION: No acute cardiopulmonary findings. Dictated by: Salome Quesada M.D. on 10/27/2018 at 15:51 Approved by: Salome Quesada M.D. on 10/27/2018 at 15:51
--- NOTE | 2018-10-27 14:45 | DI.RAD.S_ITS ---
PROCEDURE: XR SHOULDER RT MIN 2V INDICATIONS: PAIN IN RIGHT SHOULDER TECHNIQUE: 3 views of the shoulder were acquired. COMPARISON: None. FINDINGS: Bones: No fractures or dislocations. No suspicious bony lesions. Visualized ribs appear intact. Soft tissues: No suspicious soft tissue calcifications. IMPRESSION: No acute radiographic findings. If there is continued pain, followup exam or additional imaging such as MRI or CT could be performed for further assessment. Dictated by: Salome Quesada M.D. on 10/27/2018 at 15:51 Approved by: Salome Quesada M.D. on 10/27/2018 at 15:51
== END ==
PROVIDERS: Visit Provider Student in an Organized Health Care Education/Training Program
DX: M25.511 Pain in right shoulder (principal); R06.00 Dyspnea, unspecified
CPT/HCPCS: 71046; 73030

== ENCOUNTER → 2018-10-31 14:41 | Outpatient (CLI) | payer MEDICARE, SELFPAY ==
--- NOTE | 2018-10-31 | DI.ECHO.S_ITS ---
[facility] +---------+ : : [address] [place] : : : : [id number] : : : : Phone: [phone]+ Echocardiogram Report + + :Name: HELDER CHRISTENSEN Study Date: 10/31/2018 Height: 65 in : :[facility] Weight: 252 lb : : Gender: Female BSA: 2.2 m2 : :: 1945 Age: 73 yrs BP: 180/88 mmHg: : Performed By: Naty Martin : :Referring: MADELINE MOYA : + + Interpretation Summary The left ventricle is normal in size. Left ventricular systolic function is mildly reduced. The ejection fraction is estimated to be 40-45%. Left ventricular function has moderately worsened compared to the previous exam. There is mild global hypokinesis of the left ventricle. There is a mild dyssynchronous contraction pattern, consistent with a conduction abnormality. The right ventricle grossly appears normal in size with probable normal systolic function. The right ventricular systolic pressure is estimated to be at least 34 mmHg based on an estimated right atrial pressure of 3 mm Hg. The left atrium is moderately dilated. Right atrial size is normal. There is mild to moderate mitral regurgitation. MR has increased. There is no other significant valvular heart disease. The aortic root is normal size. Procedure: A two-dimensional transthoracic echocardiogram with color flow and Doppler was performed. The study quality was technically adequate. Comparison is made with the echocardiogram of 07-27-13. The patient was in normal sinus rhythm during the exam. The patient had frequent PVCs during the exam. Left Ventricle: The left ventricle is normal in size. There is normal left ventricular wall thickness. Left ventricular systolic function is mildly reduced. The ejection fraction is estimated to be 40-45%. Left ventricular function has moderately worsened compared to the previous exam. There is mild global hypokinesis of the left ventricle. There is a mild dyssynchronous contraction pattern, consistent with a conduction abnormality. Right Ventricle: The right ventricle grossly appears normal in size with probable normal systolic function. Atria: The left atrium is moderately dilated. Right atrial size is normal. The interatrial septum is intact with no evidence for an atrial septal defect. Mitral Valve: The mitral valve is grossly normal. There is mild to moderate mitral regurgitation. Aortic Valve: The aortic valve is trileaflet. The aortic valve opens well. No aortic regurgitation is present. Tricuspid Valve: The tricuspid valve is normal in structure and function. There is trace tricuspid regurgitation. The right ventricular systolic pressure is estimated to be at least 34 mmHg based on an estimated right atrial pressure of 3 mm Hg. Pulmonic Valve: The pulmonic valve is normal in structure and function. There is no pulmonic valvular regurgitation. There is no other significant valvular heart disease. Great Vessels: The aortic root is normal size. The dimensions of the ascending aorta are normal. The aortic arch is normal in size. The IVC is of normal diameter and collapses greater than 50% with a sniff. This suggests a low right atrial pressure of 3 mm Hg. Pericardium/ Pleura There is no pericardial effusion. There is no pleural effusion. MMode/2D Measurements & Calculations LVIDd: 5.0 cm Ao root diam: 3.0 cm LVIDs: 4.1 cm Aortic Jxn: 2.4 cm FS: 18.3 % asc Aorta Diam: 3.0 cm IVSd: 0.98 cm Ao Arch Diam (Prox Trans): 2.8 cm LVPWd: 0.90 cm LV pink. diameter/BSA (cm/m^2): 2.3 LV sys. diameter/BSA (cm/m^2): 1.9 LA dimension: 4.0 cm RA long axis: 4.6 cm LA A2 area: 26.8 cm2 RA area: 15.7 cm2 LA A4 area: 23.7 cm2 RA vol: 45.2 ml LA length (vol): 6.0 cm RA : 20.7 ml/m2 LA vol: 89.0 ml IVC diam: 1.00 cm LA vol index: 40.8 ml/m2 RVDd major: 5.4 cm RVD1 (basal): 3.6 cm LA Length_phl: 6.1 cm RVD2 (mid): 3.6 cm Doppler Measurements & Calculations Ao V2 max: 164.3 cm/sec MV E max fabricio: 98.9 cm/sec Ao V2 mean: 110.5 cm/sec MV A max fabricio: 129.7 cm/sec Ao max P.8 mmHg MV E/A: 0.76 Ao mean P.5 mmHg Med Peak E' Fabricio: 4.9 cm/sec Ao V2 VTI: 39.2 cm E/E' med: 20.0 Lat Peak E' Fabricio: 7.1 cm/sec E/E' lat: 14.0 E/e' average: 17.0 MV dec time: 0.24 sec MV P1/2t: 72.5 msec TR max fabricio: 278.4 cm/sec MV P1/2t max fabricio: 99.1 cm/sec TR max P.0 mmHg MVA(P1/2t): 3.0 cm2 PA V2 max: 103.2 cm/sec PA V2 mean: 67.3 cm/sec PA mean P.1 mmHg PA Accel Time: 0.11 sec Reading Physician:05:11 PM
== END ==
PROVIDERS: PCP Student in an Organized Health Care Education/Training Program; Visit Provider Student in an Organized Health Care Education/Training Program
DX: I34.0 Nonrheumatic mitral (valve) insufficiency (principal); I49.3 Ventricular premature depolarization; R06.00 Dyspnea, unspecified
CPT/HCPCS: 93306

== ENCOUNTER → 2018-12-04 11:52 | Outpatient (CLI) | payer MEDICARE, SELFPAY ==
[2018-12-04 12:42] LABS: Add Manual Diff / Slide Review NO; Basophils Absolute Auto 100 /uL (0-100); Basophils Percent Auto 0.6 % (0-2); Eosinophils Absolute Auto 200 /uL (0-450); Eosinophils Percent Auto 2.2 % (2-4); Hematocrit 45.6 % (36-46); Hemoglobin 15.3 g/dL (12.0-16.0); Lymphocytes Absolute Auto 3700 /uL (1100-4500); Lymphocytes Percent Auto 44.1 % (25-40); Mean Corpuscular HGB Conc 33.6 % (30-36); Mean Corpuscular Hemoglobin 32.6 PG (26-34); Mean Corpuscular Volume 97.1 fL (80-100); Monocytes Absolute Auto 500 /uL (0-900); Monocytes Percent Auto 5.6 % (3-14); Neutrophils Absolute Auto 4000 /uL (1500-7000); Neutrophils Percent Auto 47.5 % (50-75); Platelet Count 245 X10^3/uL (150-400); Red Blood Cell Count 4.69 X10^6/uL (4.0-5.2); Red Cell Distribution Width 13.7 % (11.6-14.8); White Blood Cell Count 8.4 X10^3/uL (4.5-11.0)
[2018-12-04 13:12] LABS: B Type Natriuretic Peptide < 100 (<100)
[2018-12-04 13:17] LABS: Alanine Aminotransferase 37 IU/L (9-52); Albumin 4.4 g/dL (3.5-5.0); Albumin Globulin Ratio 1.8 (1.0-2.8); Alkaline Phosphatase 108 U/L (38-126); Aspartate Aminotransferase 34 IU/L (14-36); BUN Creatinine Ratio 15.6 (6-22); Bilirubin Total 0.5 mg/dL (0.2-1.3); Blood Urea Nitrogen 14 mg/dL (7-17); Calcium 9.7 mg/dL (8.4-10.2); Carbon Dioxide 26 mmol/L (22-32); Chloride 104 mmol/L (98-107); Cholesterol 167 mg/dL (140-199); Estimated Glomerular Filt Rate > 60.0 mL/min (>60); Globulin 2.5 g/dL (1.7-4.1); Glucose 126 mg/dL (80-110); HDL Cholesterol 80 mg/dL (40-60); HEMOLYSIS 18 (0-50); LDL Cholesterol Calculated 63 mg/dL (<100); Magnesium 1.9 mg/dL (1.6-2.3); Potassium 4.5 mmol/L (3.4-5.1); Sodium 140 mmol/L (137-145); Total Protein 6.9 g/dL (6.3-8.2); Triglycerides 122 mg/dL (35-150)
[2018-12-04 13:45] LABS: Thyroid Stimulating Hormone 2.09 uIU/mL (0.47-4.68)
== END ==
PROVIDERS: PCP Student in an Organized Health Care Education/Training Program; Visit Provider Internal Medicine Cardiovascular Disease
DX: R06.02 Shortness of breath (principal); I10 Essential (primary) hypertension; E78.5 Hyperlipidemia, unspecified; Z98.62 Peripheral vascular angioplasty status
CPT/HCPCS: 36415; 80053; 80061; 83735; 83880; 84443; 85025

== ENCOUNTER → 2019-01-22 10:59 | Outpatient (CLI) | payer MEDICARE, SELFPAY ==
[2019-01-22 12:26] LABS: BUN Creatinine Ratio 22.3 (6-22); Blood Urea Nitrogen 29 mg/dL (7-17); Calcium 9.4 mg/dL (8.4-10.2); Carbon Dioxide 27 mmol/L (22-32); Chloride 100 mmol/L (98-107); Glucose 124 mg/dL (80-110); HEMOLYSIS < 15 (0-50); Potassium 4.6 mmol/L (3.4-5.1); Sodium 139 mmol/L (137-145)
== END ==
PROVIDERS: PCP Student in an Organized Health Care Education/Training Program; Visit Provider Internal Medicine Cardiovascular Disease
DX: R06.02 Shortness of breath (principal); I34.0 Nonrheumatic mitral (valve) insufficiency
CPT/HCPCS: 36415; 80048

== ENCOUNTER → 2019-01-29 08:15 | Outpatient (CLI) | payer MEDICARE, SELFPAY ==
[2019-01-29 09:19] LABS: BUN Creatinine Ratio 26.9 (6-22); Blood Urea Nitrogen 35 mg/dL (7-17); Calcium 9.7 mg/dL (8.4-10.2); Carbon Dioxide 26 mmol/L (22-32); Chloride 103 mmol/L (98-107); Glucose 117 mg/dL (80-110); HEMOLYSIS < 15 (0-50); Potassium 4.9 mmol/L (3.4-5.1); Sodium 138 mmol/L (137-145)
== END ==
PROVIDERS: PCP Student in an Organized Health Care Education/Training Program; Visit Provider Internal Medicine Cardiovascular Disease
DX: R06.02 Shortness of breath (principal); I34.0 Nonrheumatic mitral (valve) insufficiency
CPT/HCPCS: 36415; 80048

== ENCOUNTER → 2019-02-18 17:13 | Outpatient (CLI) | payer MEDICARE, SELFPAY ==
[2019-02-18 17:26] LABS: RBC Urine None Seen (0-5/HPF)
[2019-02-18 17:59] LABS: Appearance Urine UA SL CLOUDY; Bilirubin Urine UA NEGATIVE (NEGATIVE); Color Urine UA YELLOW; Glucose Urine UA NEGATIVE (Negative); Ketones Urine UA NEGATIVE (NEGATIVE); Leukocyte Esterase Urine UA 1+ (NEGATIVE); Nitrite Urine UA NEGATIVE (Negative); Occult Blood Urine UA NEGATIVE (Negative); Protein Urine UA NEGATIVE (Negative); Urobilinogen Urine UA 0.2 E.U./dL (0.2)
[2019-02-18 18:17] LABS: Amorphous Sediment Urine 1+; Bacteria Urine Moderate (10-30); Squamous Epithelial Cell Urine 5-10 /HPF (0-5/HPF); WBC Urine 5-10/HPF (0-5/HPF)
[2019-02-18 18:18] LABS: Culture Indicated Urine Specimen Cultured; Mucus Urine 1+ (Negative)
== END ==
PROVIDERS: PCP Student in an Organized Health Care Education/Training Program; Visit Provider Thoracic Surgery (Cardiothoracic Vascular Surgery)
DX: N18.3 Chronic kidney disease, stage 3 (moderate) (principal); Z01.810 Encounter for preprocedural cardiovascular examination
CPT/HCPCS: 81001; 87086

== ENCOUNTER → 2019-03-09 10:20 | Outpatient (CLI) | payer MEDICARE, SELFPAY ==
[2019-03-09 11:59] LABS: INR 2.7 (0.9-1.3); Prothrombin Time 31.6 SECONDS (10.1-12.7)
== END ==
PROVIDERS: PCP Student in an Organized Health Care Education/Training Program; Referring Provider Internal Medicine Cardiovascular Disease; Visit Provider Thoracic Surgery (Cardiothoracic Vascular Surgery)
DX: Z79.01 Long term (current) use of anticoagulants (principal)
CPT/HCPCS: 36415; 85610

== ENCOUNTER → 2019-03-12 09:49 | Outpatient (CLI) | payer MEDICARE, SELFPAY ==
[2019-03-12 10:58] LABS: Add Manual Diff / Slide Review NO; Basophils Absolute Auto 100 /uL (0-100); Basophils Percent Auto 0.7 % (0-2); Eosinophils Absolute Auto 100 /uL (0-450); Eosinophils Percent Auto 0.7 % (2-4); Hematocrit 32.5 % (36-46); Hemoglobin 10.4 g/dL (12.0-16.0); Lymphocytes Absolute Auto 1800 /uL (1100-4500); Lymphocytes Percent Auto 20.8 % (25-40); Mean Corpuscular Volume 99.7 fL (80-100); Monocytes Absolute Auto 700 /uL (0-900); Monocytes Percent Auto 7.5 % (3-14); Neutrophils Absolute Auto 6100 /uL (1500-7000); Neutrophils Percent Auto 70.3 % (50-75); Platelet Count 336 X10^3/uL (150-400); Red Blood Cell Count 3.26 X10^6/uL (4.0-5.2); Red Cell Distribution Width 14.5 % (11.6-14.8); White Blood Cell Count 8.7 X10^3/uL (4.5-11.0)
[2019-03-12 11:02] LABS: INR 1.4 (0.9-1.3)
[2019-03-12 11:32] LABS: BUN Creatinine Ratio 18.6 (6-22); Blood Urea Nitrogen 26 mg/dL (7-17); Calcium 8.8 mg/dL (8.4-10.2); Carbon Dioxide 27 mmol/L (22-32); Chloride 104 mmol/L (98-107); Estimated Glomerular Filt Rate 36.8 mL/min (>60); Glucose 108 mg/dL (80-110); HEMOLYSIS < 15 (0-50); Sodium 141 mmol/L (137-145)
== END ==
PROVIDERS: PCP Student in an Organized Health Care Education/Training Program; Visit Provider Thoracic Surgery (Cardiothoracic Vascular Surgery)
DX: Z79.01 Long term (current) use of anticoagulants (principal)
CPT/HCPCS: 36415; 80048; 85025; 85610

== ENCOUNTER → 2019-03-18 09:33 | Outpatient (CLI) | payer MEDICARE, SELFPAY ==
[2019-03-18 10:24] LABS: Add Manual Diff / Slide Review NO; Basophils Absolute Auto 100 /uL (0-100); Basophils Percent Auto 1.1 % (0-2); Eosinophils Absolute Auto 300 /uL (0-450); Lymphocytes Absolute Auto 2100 /uL (1100-4500); Lymphocytes Percent Auto 23.2 % (25-40); Mean Corpuscular HGB Conc 32.3 % (30-36); Mean Corpuscular Hemoglobin 31.9 PG (26-34); Mean Corpuscular Volume 98.7 fL (80-100); Monocytes Absolute Auto 900 /uL (0-900); Monocytes Percent Auto 9.6 % (3-14); Neutrophils Absolute Auto 5700 /uL (1500-7000); Neutrophils Percent Auto 63.1 % (50-75); Platelet Count 386 X10^3/uL (150-400); Red Blood Cell Count 3.44 X10^6/uL (4.0-5.2); Red Cell Distribution Width 14.3 % (11.6-14.8)
[2019-03-18 10:55] LABS: INR 1.6 (0.9-1.3); Prothrombin Time 18.3 SECONDS (10.1-12.7)
[2019-03-18 11:05] LABS: Alanine Aminotransferase 22 IU/L (9-52); Albumin 3.8 g/dL (3.5-5.0); Albumin Globulin Ratio 1.3 (1.0-2.8); Alkaline Phosphatase 141 U/L (38-126); Aspartate Aminotransferase 24 IU/L (14-36); BUN Creatinine Ratio 19.4 (6-22); Bilirubin Total 0.7 mg/dL (0.2-1.3); Blood Urea Nitrogen 33 mg/dL (7-17); Carbon Dioxide 31 mmol/L (22-32); Chloride 102 mmol/L (98-107); Estimated Glomerular Filt Rate 29.4 mL/min (>60); Glucose 106 mg/dL (80-110); HEMOLYSIS < 15 (0-50); Potassium 3.7 mmol/L (3.4-5.1); Sodium 143 mmol/L (137-145); Total Protein 6.8 g/dL (6.3-8.2)
== END ==
PROVIDERS: PCP Student in an Organized Health Care Education/Training Program; Visit Provider Internal Medicine Cardiovascular Disease
DX: I34.0 Nonrheumatic mitral (valve) insufficiency (principal); I50.22 Chronic systolic (congestive) heart failure; Z79.899 Other long term (current) drug therapy; I10 Essential (primary) hypertension; R94.31 Abnormal electrocardiogram [ECG] [EKG]
CPT/HCPCS: 36415; 80053; 85025; 85610

== ENCOUNTER → 2019-03-20 09:33 | Outpatient (CLI) | payer MEDICARE, SELFPAY ==
[2019-03-20 11:06] LABS: INR 1.5 (0.9-1.3); Prothrombin Time 17.4 SECONDS (10.1-12.7)
== END ==
PROVIDERS: PCP Student in an Organized Health Care Education/Training Program; Visit Provider Thoracic Surgery (Cardiothoracic Vascular Surgery)
DX: Z79.01 Long term (current) use of anticoagulants (principal)
CPT/HCPCS: 36415; 85610

== ENCOUNTER → 2019-05-01 10:17 | Outpatient (CLI) | payer MEDICARE, SELFPAY ==
[2019-05-01 11:48] LABS: Alanine Aminotransferase 20 IU/L (9-52); Albumin 3.7 g/dL (3.5-5.0); Albumin Globulin Ratio 1.4 (1.0-2.8); Alkaline Phosphatase 112 U/L (38-126); Aspartate Aminotransferase 28 IU/L (14-36); BUN Creatinine Ratio 16.7 (6-22); Bilirubin Total 0.5 mg/dL (0.2-1.3); Blood Urea Nitrogen 20 mg/dL (7-17); Calcium 9.3 mg/dL (8.4-10.2); Carbon Dioxide 29 mmol/L (22-32); Chloride 103 mmol/L (98-107); Estimated Glomerular Filt Rate 43.9 mL/min (>60); Globulin 2.7 g/dL (1.7-4.1); Glucose 124 mg/dL (80-110); HEMOLYSIS < 15 (0-50); Potassium 4.6 mmol/L (3.4-5.1); Sodium 139 mmol/L (137-145); Total Protein 6.4 g/dL (6.3-8.2)
== END ==
PROVIDERS: Family Provider Internal Medicine Cardiovascular Disease; PCP Student in an Organized Health Care Education/Training Program; Visit Provider Student in an Organized Health Care Education/Training Program
DX: I10 Essential (primary) hypertension (principal); E03.9 Hypothyroidism, unspecified
CPT/HCPCS: 36415; 80053

== ENCOUNTER 2019-06-23 12:52 | Emergency (ER) | payer MEDICARE, SELFPAY ==
[2019-06-23 13:09] VITALS: BP 159/87; PULSE 84; RESP 14; TEMP 36.9; O2SAT 94; BMI 37.0
--- NOTE | 2019-06-23 13:09 | DI.RAD.S_ITS ---
PROCEDURE: XR CHEST 2V INDICATIONS: shortness of breath TECHNIQUE: 2 views of the chest were acquired. COMPARISON: [facility], CR, XR CHEST 2V, 10/27/2018, 14:49. FINDINGS: Surgical changes and devices: Postsurgical changes are demonstrated in the mediastinum. Lungs and pleura: There is a small left pleural effusion and suggestion of a minimal right effusion. Associated bandlike opacities in the bases, left greater than right, are compatible with compressive atelectasis or developing consolidation. There is pulmonary vascular prominence suggestive of mild edema. No pneumothorax. Mediastinum: Heart size is normal. Bones and chest wall: No suspicious bony abnormalities. Soft tissues appear unremarkable. IMPRESSION: 1. Small left and probable minimal right effusion with mild associated compressive atelectasis. Developing consolidation is not excluded in the left base. 2. Mild pulmonary edema. Dictated by: Luis Lezama M.D. on 06/23/2019 at 13:28 Approved by: Luis Lezama M.D. on 06/23/2019 at 13:31
[2019-06-23 13:30] VITALS: BP 174/91; PULSE 74; RESP 22; O2SAT 100
--- NOTE | 2019-06-23 13:43 | PC.NURSE ---
2 attempts at iv access, neither successful. areas are bandaged. no bleeding noted.
[2019-06-23 14:00] VITALS: BP 120/96; PULSE 70; RESP 9; O2SAT 96
[2019-06-23 14:33] LABS: Add Manual Diff / Slide Review NO; Basophils Absolute Auto 100 /uL (0-100); Basophils Percent Auto 1.1 % (0-2); Eosinophils Absolute Auto 200 /uL (0-450); Eosinophils Percent Auto 2.4 % (2-4); Hematocrit 40.1 % (36-46); Hemoglobin 13.1 g/dL (12.0-16.0); Lymphocytes Absolute Auto 2500 /uL (1100-4500); Lymphocytes Percent Auto 28.1 % (25-40); Mean Corpuscular HGB Conc 32.5 % (30-36); Mean Corpuscular Hemoglobin 30.2 PG (26-34); Monocytes Absolute Auto 500 /uL (0-900); Monocytes Percent Auto 5.8 % (3-14); Neutrophils Absolute Auto 5700 /uL (1500-7000); Neutrophils Percent Auto 62.6 % (50-75); Platelet Count 225 X10^3/uL (150-400); Red Blood Cell Count 4.32 X10^6/uL (4.0-5.2); Red Cell Distribution Width 14.7 % (11.6-14.8); White Blood Cell Count 9.1 X10^3/uL (4.5-11.0)
[2019-06-23 14:35] LABS: Alanine Aminotransferase 19 IU/L (9-52); Albumin 4.2 g/dL (3.5-5.0); Albumin Globulin Ratio 1.4 (1.0-2.8); Alkaline Phosphatase 98 U/L (38-126); Aspartate Aminotransferase 35 IU/L (14-36); BUN Creatinine Ratio 16.7 (6-22); Bilirubin Total 0.7 mg/dL (0.2-1.3); Blood Urea Nitrogen 20 mg/dL (7-17); Calcium 9.1 mg/dL (8.4-10.2); Carbon Dioxide 30 mmol/L (22-32); Chloride 104 mmol/L (98-107); Estimated Glomerular Filt Rate 43.9 mL/min (>60); Globulin 3.1 g/dL (1.7-4.1); Glucose 102 mg/dL (80-110); HEMOLYSIS 31 (0-50); Potassium 4.3 mmol/L (3.4-5.1); Sodium 140 mmol/L (137-145); Total Protein 7.3 g/dL (6.3-8.2)
--- NOTE | 2019-06-23 14:48 | DI.CT.S_ITS ---
PROCEDURE: CT ANGIO CHEST PE PROTOCOL INDICATIONS: SOB, open heart for mitral valve in February TECHNIQUE: After the administration of intravenous contrast, 2 mm thick sections acquired from the pulmonary apices to the posterior costophrenic angles. 3-dimensional maximum intensity projection (MIP) coronal and sagittal reformats were then acquired through the thorax. For radiation dose reduction, the following was used: automated exposure control, adjustment of mA and/or kV according to patient size. COMPARISON: [facility], CR, XR CHEST 2V, 10/27/2018, 14:49. FINDINGS: Image quality: Excellent. Pulmonary arteries: Pulmonary arteries are normal in size, and demonstrate no intraluminal filling defects to suggest central pulmonary embolism. Lungs and pleura: Small bilateral pleural effusions with associated compressive atelectasis. There is mild, diffuse ground glass opacities in the bilateral hemithoraces which may be in part due to decreased lung volumes. Additionally, there are several scattered irregular foci of consolidative opacities, some with surrounding groundglass opacities involving the left upper lobe, left lower lobe, right upper lobe, and right middle lobe. These consolidative opacities measure between 8 mm and 19 mm in size. The There is minimal septal thickening of the lower lobes bilaterally. Mild bilateral perihilar airway thickening. Mild background pulmonary emphysematous change. Central and peripheral airways are patent. Mediastinum: Heart size is normal, without pericardial effusion. Mitral valve prosthesis is identified. Scattered atherosclerotic calcifications of the coronary arteries are noted. Numerous scattered mediastinal lymph nodes appear prominent in size. The largest measures approximately 11 mm in short axis dimension is identified in the precarinal region. This is seen on image 50, series 4. No hilar adenopathy. Thoracic aorta is normal in caliber and enhancement. Esophagus is normal in caliber, without hiatal hernia. Bones and chest wall: Status post interval median sternotomy. Numerous median sternotomy wires appear intact. No substernal fluid collections identified. No substernal inflammatory changes. No suspicious bony lesions. Ribs and thoracic spine appear intact throughout. Thyroid gland is unremarkable. No axillary or supraclavicular adenopathy. Abdomen: Visualized upper abdominal solid organs appear normal in the early arterial phase of enhancement. IMPRESSION: 1. No acute pulmonary emboli. 2. Scattered, patchy bilateral consolidations and nodules with associated airway thickening likely representing acute airspace disease and inflammatory nodules. There is associated reactive mediastinal lymphadenopathy. Recommend short interval followup CT in 3-6 months to document stability versus resolution. 3. Small bilateral pleural effusions with suggestion of minimal smooth septal thickening of the lower lobes may represent sequela of inflammatory/infectious process versus early pulmonary edema. 4. Mild background pulmonary emphysematous change. 5. Postoperative changes of interval mitral valvular replacement procedure. Dictated by: Bennie Morgan M.D. on 06/23/2019 at 15:08 Approved by: Bennie Morgan M.D. on 06/23/2019 at 15:29
[2019-06-23 14:56] LABS: B Type Natriuretic Peptide 304 (<100)
[2019-06-23 15:46] VITALS: PULSE 75; RESP 22; O2SAT 92
[2019-06-23] MEDS: FUROSEMIDE 40 MG/4 ML VIAL IV (16:23)
--- NOTE | 2019-06-23 20:13 | ED_ITS ---
HPI - SOB/Dyspnea General Chief Complaint: Shortness of Breath/Dyspnea Stated Complaint: open heart surg. 02/2019/cant breathe Time Seen by Provider: 06/23/19 13:00 Source: patient Mode of arrival: Wheelchair Limitations: no limitations History of Present Illness HPI Narrative: 73-year-old female nonsmoker with history of hypertension, hypothyroid, hyperlipidemia and surgery in the summer for replacement of the suzanne ral valve presents with a few days of worsening shortness of breath with exertion and lying flat. She has minimal increased swelling in her lower extremities but is largely asymptomatic and free of any significant playing. She denies any fever chills and has had no cough. She denies any chest pain, dizziness, lightheadedness or weakness. She does take Lasix and denies missing any doses. She denies any significant fluid ingestion or dietary indiscretions. MD Complaint: shortness of breath Onset (ago): day(s) Severity: moderate Consistency/Duration: constant Relieving factors: rest and upright position Exacerbating factors: lying flat and movement Known history of: congestive heart failure Associated symptoms: denies other symptoms Treatment prior to arrival: none Related Data Home oxygen amount: none Home Medications Medication Instructions Recorded Confirmed aspirin 81 mg tablet,delayed 81 mg PO DAILY 05/31/19 06/23/19 release furosemide 40 mg tablet 40 mg PO DAILY 05/31/19 06/23/19 lovastatin 40 mg tablet 40 mg PO QPM 05/31/19 06/23/19 metoprolol succinate 25 mg capsule 25 mg PO QPM 05/31/19 06/23/19 sprinkle, ext. release 24 hr venlafaxine 150 mg 150 mg PO DAILY 05/31/19 06/23/19 capsule,extended release 24 hr hydralazine 50 mg PO BID 06/23/19 06/23/19 hydrocortisone 1 applic TOPICAL BID 06/23/19 06/23/19 levothyroxine 50 mcg PO DAILY 06/23/19 06/23/19 potassium chloride 20 meq PO DAILY 06/23/19 06/23/19 venlafaxine 75 mg PO DAILY 06/23/19 06/23/19 Allergies Allergy/AdvReac Type Severity Reaction Status Date / Time No Known Drug Allergies Allergy Verified 06/23/19 13:09 Review of Systems Constitutional Constitutional: Denies chills, Denies fatigue, Denies fever(s), Denies frequent falls, Denies lethargy and Denies weakness Eyes Eyes: Denies change in vision, Denies eye discharge, Denies irritation and Denies loss of vision ENT Ears, Nose, Mouth, and Throat: Denies change in voice, Denies dizziness, Denies neck pain, Denies sore throat and Denies throat swelling Cardiovascular Cardiovascular: Denies chest pain, Reports edema, Denies irregular heart rhythm, Denies lightheadedness, Denies palpitations, Reports dyspnea, Reports dyspnea on exertion and Denies orthopnea Respiratory Respiratory: Denies cough, Reports dyspnea, Reports dyspnea on exertion and Denies wheezing Gastrointestinal Gastrointestinal: Denies abdominal pain, Denies change in bowel habits, Denies diarrhea, Denies nausea and Denies vomiting Genitourinary Genitourinary: Denies hematuria, Denies flank pain, Denies urinary incontinence and Denies urinary urgency Musculoskeletal Musculoskeletal: Denies back pain, Denies muscle weakness, Denies neck pain, Denies numbness and Denies tingling Integumentary/Breasts Skin/Breast: Denies pruritus, Denies erythema, Denies rash and Denies wounds Neurologic Neurologic: Denies behavioral changes, Denies confusion, Denies dizziness, Denies frequent falls, Denies loss of vision, Denies numbness, Denies tingling and Denies weakness Psychiatric Psychiatric: Denies anxiety, Denies behavioral changes, Denies confusion, Denies depression, Denies homicidal ideation and Denies suicidal ideation Endocrine Endocrine: Denies fatigue, Denies flushing and Denies palpitations Hematologic/Lymphatic Hematologic/Lymphatic: Denies easy bruising Allergic/Immunologic Allergic/Immunologic: Denies urticaria, Denies throat swelling and Denies wheezing [facility] Medical History Gout (Acute) Social History Smoking Status: Unknown if ever smoked Social History Smoking Status: Unknown if ever smoked Exam Narrative Exam Narrative: GENERAL: [69] year old patient appears stated age. Well- nourished, well-developed patient, in mild distress. HEAD: Atraumatic. Normocephalic. EYES: Pupils equal round and reactive. Extraocular motions intact. No scleral icterus. No injection or drainage. ENT: Nose without bleeding, purulent drainage. Throat without erythema, tonsillar hypertrophy or exudate. Airway patent. NECK: Trachea midline. Non tender CARDIOVASCULAR: Regular rate and rhythm without murmurs, gallops, or rubs. RESPIRATORY: Clear to auscultation. Breath sounds equal bilaterally. No wheezes, rales, or rhonchi. GASTROINTESTINAL: Abdomen soft, non-tender, nondistended. EXTREMITIES: 1+ pitting edema bilateral lower extremities BACK: Nontender without deformity or crepitance. No flank tenderness. NEURO: AOx3. SKIN: No rash or erythema of visible areas Initial Vital Signs Initial Vital Signs: Vital Signs Temperature 98.4 F 06/23/19 13:09 Pulse Rate 84 06/23/19 13:09 Respiratory Rate 14 06/23/19 13:09 Blood Pressure 159/87 H 06/23/19 13:09 Pulse Oximetry 94 06/23/19 13:09 Course Orders Ordered: ED Orders 06/23/19 13:09 XR chest 2V Stat EKG-12 Lead Stat Measure peak expiratory flow ONCE RT Consult Eval and Treat Now 06/23/19 14:15 B Type Natriuretic Peptide Stat Complete Blood Count AUTO DIFF Stat Comprehensive Metabolic Panel Stat 06/23/19 14:48 CT angio chest PE protocol Stat Discontinued Medications Furosemide (Lasix) 40 mg IV NOW ONE Stop: 06/23/19 16:17 Last Admin: 06/23/19 16:23 Dose: 40 mg Documented by: BRENDEN Furosemide (Lasix) 40 mg IV NOW ONE Stop: 06/23/19 16:17 Consultations Consultation #1: Discussion with patient's own flash ranging crewmember who will see her in the office tomorrow to perform an echo. He agrees with an extra dose or 2 of Lasix and also that she is appropriate for discharge. Vital Signs Vital signs: Vital Signs - 8 hr 06/23/19 13:09 06/23/19 13:30 06/23/19 14:00 Temperature 98.4 F Pulse Rate 84 74 70 Respiratory Rate 14 22 9 L Blood Pressure 159/87 H Blood Pressure [Left Arm] 174/91 H 120/96 H Pulse Oximetry 94 100 96 06/23/19 15:46 Temperature Pulse Rate 75 Respiratory Rate 22 Blood Pressure Blood Pressure [Left Arm] Pulse Oximetry 92 MDM - SOB/Dyspnea Lab Data Result diagrams: 06/23/19 14:15 06/23/19 14:15 Labs: Lab Results 06/23/19 06/23/19 06/23/19 Range/Units 14:15 14:15 14:15 WBC 9.1 (4.5-11.0) X10^3/uL RBC 4.32 (4.0-5.2) X10^6/uL Hgb 13.1 (12.0-16.0) g/dL Hct 40.1 (36-46) % MCV 93.0 (80-100) fL MCH 30.2 (26-34) PG MCHC 32.5 (30-36) % RDW 14.7 (11.6-14.8) % Plt Count 225 (150-400) X10^3/uL Neut % (Auto) 62.6 (50-75) % Lymph % (Auto) 28.1 (25-40) % Cotton % (Auto) 5.8 (3-14) % Eos % (Auto) 2.4 (2-4) % Baso % (Auto) 1.1 (0-2) % Neut # (Auto) 5700 (7709-2656) /uL Lymph # (Auto) 2500 (9073-7697) /uL Cotton # (Auto) 500 (0-900) /uL Eos # (Auto) 200 (0-450) /uL Baso # (Auto) 100 (0-100) /uL Sodium 140 (137-145) mmol/L Potassium 4.3 (3.4-5.1) mmol/L Chloride 104 (98-107) mmol/L Carbon Dioxide 30 (22-32) mmol/L BUN 20 H (7-17) mg/dL Creatinine 1.20 H (0.52-1.04) mg/dL Estimated GFR 43.9 L (>60) mL/min BUN/Creatinine Ratio 16.7 (6-22) Glucose 102 (80-110) mg/dL Calcium 9.1 (8.4-10.2) mg/dL Total Bilirubin 0.7 (0.2-1.3) mg/dL AST 35 (14-36) IU/L ALT 19 (9-52) IU/L Alkaline Phosphatase 98 (38-126) U/L B-Natriuretic Peptide 304 H (<100) Total Protein 7.3 (6.3-8.2) g/dL Albumin 4.2 (3.5-5.0) g/dL Globulin 3.1 (1.7-4.1) g/dL Albumin/Globulin Ratio 1.4 (1.0-2.8) Imaging Data CT scan - chest: Radiologist's impression: [address] [address] [address] Scan Report Signed Patient: Lesia Arizmendi EMR#: [id number] : 5Acct:[id number] Age/Sex: 73 / FDate of Service: 06/23/19 Loc: ED Accession Number: [id number] Procedure: CT angio chest PE protocol Ordering Provider: Luis Zamudio D.O. PROCEDURE: CT ANGIO CHEST PE PROTOCOL INDICATIONS: SOB, open heart for mitral valve in February TECHNIQUE: After the administration of intravenous contrast, 2 mm thick sections acquired from the pulmonary apices to the posterior costophrenic angles. 3-dimensional maximum intensity projection (MIP) coronal and sagittal reformats were then acquired through the thorax. For radiation dose reduction, the following was used: automated exposure control, adjustment of mA and/or kV according to patient size. COMPARISON: [facility], [facility], XR CHEST 2V, 10/27/2018, 14:49. FINDINGS: Image quality: Excellent. Pulmonary arteries: Pulmonary arteries are normal in size, and demonstrate no intraluminal filling defects to suggest central pulmonary embolism. Lungs and pleura: Small bilateral pleural effusions with associated compressive atelectasis. There is mild, diffuse ground glass opacities in the bilateral hemithoraces which may be in part due to decreased lung volumes. Additionally, there are several scattered irregular foci of consolidative opacities, some with surrounding groundglass opacities involving the left upper lobe, left lower lobe, right upper lobe, and right middle lobe. These consolidative opacities measure between 8 mm and 19 mm in size. The There is minimal septal thickening of the lower lobes bilaterally. Mild bilateral perihilar airway thickening. Mild background pulmonary emphysematous change. Central and peripheral airways are patent. Mediastinum: Heart size is normal, without pericardial effusion. Mitral valve prosthesis is identified. Scattered atherosclerotic calcifications of the coronary arteries are noted. Numerous scattered mediastinal lymph nodes appear prominent in size. The largest measures approximately 11 mm in short axis dimension is identified in the precarinal region. This is seen on image 50, series 4. No hilar adenopathy. Thoracic aorta is normal in caliber and enhancement. Esophagus is normal in caliber, without hiatal hernia. Bones and chest wall: Status post interval median sternotomy. Numerous median sternotomy wires appear intact. No substernal fluid collections identified. No substernal inflammatory changes. No suspicious bony lesions. Ribs and thoracic spine appear intact throughout. Thyroid gland is unremarkable. No axillary or supraclavicular adenopathy. Abdomen: Visualized upper abdominal solid organs appear normal in the early arterial phase of enhancement. IMPRESSION: 1. No acute pulmonary emboli. 2. Scattered, patchy bilateral consolidations and nodules with associated airway thickening likely representing acute airspace disease and inflammatory nodules. There is associated reactive mediastinal lymphadenopathy. Recommend short interval followup CT in 3-6 months to document stability versus resolution. 3. Small bilateral pleural effusions with suggestion of minimal smooth septal t hickening of the lower lobes may represent sequela of inflammatory/infectious process versus early pulmonary edema. 4. Mild background pulmonary emphysematous change. 5. Postoperative changes of interval mitral valvular replacement procedure. Dictated by: Bennie Morgan M.D. on 06/23/2019 at 15:08 Approved by: Bennie Morgan M.D. on 06/23/2019 at 15:29 Discharge Plan Departure Patient Disposition: Home Clinical Impression: Congestive heart failure Qualifiers: Heart failure type: unspecified Heart failure chronicity: acute Qualified Code(s): I50.9 - Heart failure, unspecified Discharge Date/Time: 06/23/19 17:00 Instructions: DI for Heart Failure Activity Restrictions/Additional Instructions: *You have been diagnosed with [ acute congestive heart failure ] *What to do: *Take medications as directed *Follow up with your your flash ranging crewmember tomorrow, he will see you in the of fice and perform an echocardiogram *Return to ER if you should have any new, worsening or concerning symptoms Prescriptions: No Action venlafaxine 150 mg capsule,extended release 24hr 150 mg PO DAILY RF: 0 metoprolol succinate 25 mg cap,sprinkle,ER 24hr dose pack 25 mg PO QPM RF: 0 lovastatin 40 mg tablet 40 mg PO QPM RF: 0 aspirin [Adult Aspirin Regimen] 81 mg tablet,delayed release (DR/EC) 81 mg PO DAILY RF: 0 furosemide 40 mg tablet 40 mg PO DAILY RF: 0 venlafaxine 75 mg capsule,extended release 24hr 75 mg PO DAILY RF: 0 hydrocortisone 1 % cream 1 applic topical BID RF: 0 levothyroxine 50 mcg tablet 50 mcg PO DAILY RF: 0 hydralazine 50 mg tablet 50 mg PO BID RF: 0 potassium chloride 20 mEq tablet extended release 20 meq PO DAILY RF: 0 Referrals: Adelina Watkins PA-C [Primary Care Provider] -
--- NOTE | 2019-07-11 20:45 | PC.NURSE ---
late entry, x ray transporter stated that the stretcher accidently rolled onto her toes in x-ray. I went into see pt, and she said that she was not injured and she did not have any pain in her feet. she was moving her toes/ well, good neuro, no discoloration. will let doctor know of incident .
== END 2019-06-23 17:00 | disposition home or self-care (01) ==
PROVIDERS: Emergency Provider Emergency Medicine; Family Provider Internal Medicine Cardiovascular Disease; PCP Student in an Organized Health Care Education/Training Program
DX: I50.9 Heart failure, unspecified (principal)
CPT/HCPCS: 36415; 71046; 71275; 80053; 83880; 85025; 93005; 96374; 99284; 99285; J1940; Q9967

== ENCOUNTER 2019-07-05 16:31 | Inpatient (IN) | payer MEDICARE, SELFPAY ==
[2019-07-05 16:35] VITALS: BP 151/79; PULSE 77; RESP 20; TEMP 36.6; O2SAT 97
--- NOTE | 2019-07-05 16:42 | DI.CT.S_ITS ---
PROCEDURE: CT HEAD/BRAIN WO CON INDICATIONS: Headache + vision loss TECHNIQUE: Noncontrast 4.5 mm thick angled axial sections acquired from the foramen magnum to the vertex, with coronal and sagittal reformats. For radiation dose reduction, the following was used: automated exposure control, adjustment of mA and/or kV according to patient size. COMPARISON: None. FINDINGS: Image quality: Excellent. CSF spaces: Basal cisterns are patent. No extra-axial fluid collections. The ventricles are symmetric in size and shape. Brain: No intracranial bleeds or masses. There is loss of vargas-white matter differentiation with transcortical edema the inferior right occipital lobe. The involved region measures approximately 3.4 x 2.0 x 1.5 cm. There is local sulcal effacement but otherwise no mass effect on adjacent brain parenchyma or midline shift. There are periventricular and deep white matter chronic small vessel ischemic changes. There is intracranial internal carotid artery atherosclerosis. Skull and face: Calvarium and visualized facial bones appear intact, without suspicious lesions. Sinuses: Visualized sinuses and mastoids are clear. IMPRESSION: Findings consistent with infarct in the right occipital lobe. Its appearance is consistent with late acute to subacute or vascular injury. No significant mass effect or midline shift. -Discussed these findings with the ordering provider Mahi Hooper M.D. at 5:14 p.m. PST via telephone. Chronic small vessel ischemic changes. Dictated by: Rico Perez M.D. on 07/05/2019 at 16:09 Approved by: Rico Perez M.D. on 07/05/2019 at 16:20
--- NOTE | 2019-07-05 17:35 | DI.CT.S_ITS ---
PROCEDURE: CT ANGIO HEAD AND NECK INDICATIONS: stroke TECHNIQUE: Pre-contrast 4.5 mm thick sections acquired from the foramen magnum to the vertex. After the administration of intravenous contrast, 1 mm thick sections acquired from the aortic arch through the [place] of [place]. Post-contrast 4.5 mm thick sections then re-acquired from the foramen magnum to the vertex. 3-dimensional [id number] (MIP) and/or volume rendering reformats were acquired of the central intracranial vasculature and neck separately. COMPARISON: [facility], CT, CT ANGIO CHEST PE PROTOCOL, 06/23/2019, 14:41. Outside Film, CT, CT ANGIO NECK, 12/26/2018, 13:45. [facility], CT, CT HEAD/BRAIN WO CON, 07/05/2019, 16:51. FINDINGS: Image quality: Excellent. BRAIN: CSF spaces: Basal cisterns are patent. No extra-axial fluid collections. Ventricles are normal in size and shape. Brain: There is a region of effaced vargas-white matter differentiation medially in the right occipital lobe redemonstrated consistent with a subacute infarct. No intracranial hematoma collections, mass, or mass effect. No abnormal intracranial enhancement. Skull and face: Calvarium and facial bones appear intact, without suspicious lesions. Orbits appear normal. Sinuses: Sinuses and mastoids are clear. HEAD CT ANGIOGRAPHY: Anterior circulation: Intracranial internal carotid arteries are patent bilaterally. There is multifocal atherosclerotic plaque along the cavernous segments of the internal carotid arteries without focal high-grade stenosis. The paired anterior cerebral arteries are patent bilaterally. The middle cerebral arteries are patent bilaterally. The anterior communicating artery is seen. No high-grade stenosis, occlusion, or aneurysms identified. No discrete filling defects. Posterior circulation: Visualized portions of the vertebral arteries demonstrate are patent bilaterally and join to form a patent basilar artery. The posterior cerebral arteries are patent bilaterally. No high-grade stenoses, vascular occlusion, or aneurysm identified. No discrete filling defects. NECK CT ANGIOGRAPHY: Carotid system: The great vessels demonstrate conventional anatomy as they arise from the aortic arch. The origins of the common carotid arteries appear patent. The common carotid arteries demonstrate normal caliber with a bilateral retropharyngeal course. The bifurcation regions are both retropharyngeal in location. There is mild calcified plaque in the carotid bulbs bilaterally with minimal narrowing of less than 50%. The internal carotid arteries demonstrate normal calibers and courses. Posterior circulation: The origins of the vertebral arteries both appear widely patent. The more superior extracranial portions of both vertebral arteries also demonstrate normal courses and calibers. They join to form a normal appearing basilar artery. Soft tissues: Within the visualized lungs, there are irregular nodular opacities redemonstrated within the right upper lobe measuring up to 1.3 cm along the right major fissure and 0.7 cm adjacent to the minor fissure. [id number] centrilobular emphysematous changes are redemonstrated. Bones: No suspicious bony lesions. Visualized cervical spine demonstrates straightening of the cervical or doses with minimal anterolisthesis at C3-C4 and C4-C5. There is multilevel disc space narrowing including moderate to severe narrowing in the lower cervical spine at C5-C6 and C6-C7 with endplate sclerosis and osteophytosis. IMPRESSION: 1. No high-grade stenosis or occlusion of the central intracranial arteries. No discrete filling defects. 2. No high-grade stenosis or occlusion of the head and neck arteries. There is minimal narrowing of less than 50% in the carotid bulbs which are retropharyngeal in location. 3. Findings compatible with a subacute infarct in the medial right occipital lobe redemonstrated. 4. Irregular nodular opacities within the visualized right upper lobe redemonstrated. Recommend followup as per recommendation on recent CT to demonstrate resolution. Any quantitative measurements of stenosis were performed using NASCET criteria. Dictated by: Luis Lezama M.D. on 07/05/2019 at 18:49 Approved by: Luis Lezama M.D. on 07/05/2019 at 19:00
[2019-07-05 17:45] LABS: Add Manual Diff / Slide Review NO; Basophils Absolute Auto 100 /uL (0-100); Eosinophils Absolute Auto 100 /uL (0-450); Eosinophils Percent Auto 0.9 % (2-4); Hemoglobin 13.1 g/dL (12.0-16.0); Lymphocytes Absolute Auto 2600 /uL (1100-4500); Lymphocytes Percent Auto 34.6 % (25-40); Mean Corpuscular HGB Conc 32.7 % (30-36); Mean Corpuscular Hemoglobin 30.3 PG (26-34); Mean Corpuscular Volume 92.7 fL (80-100); Monocytes Absolute Auto 600 /uL (0-900); Monocytes Percent Auto 8.2 % (3-14); Neutrophils Absolute Auto 4100 /uL (1500-7000); Neutrophils Percent Auto 55.3 % (50-75); Platelet Count 244 X10^3/uL (150-400); Red Blood Cell Count 4.31 X10^6/uL (4.0-5.2); Red Cell Distribution Width 14.6 % (11.6-14.8); White Blood Cell Count 7.5 X10^3/uL (4.5-11.0)
[2019-07-05] MEDS: ASPIRIN 81 MG CHEW TAB 324 MG (17:47)
[2019-07-05 17:55] LABS: PTT Partial Thromboplastin Tim 30 SECONDS (26.4-36.2)
[2019-07-05 17:57] LABS: Alanine Aminotransferase 23 IU/L (9-52); Albumin 4.4 g/dL (3.5-5.0); Albumin Globulin Ratio 1.5 (1.0-2.8); Alkaline Phosphatase 86 U/L (38-126); Aspartate Aminotransferase 36 IU/L (14-36); BUN Creatinine Ratio 22.1 (6-22); Bilirubin Total 0.6 mg/dL (0.2-1.3); Blood Urea Nitrogen 31 mg/dL (7-17); Calcium 9.5 mg/dL (8.4-10.2); Carbon Dioxide 30 mmol/L (22-32); Chloride 100 mmol/L (98-107); Estimated Glomerular Filt Rate 36.8 mL/min (>60); Globulin 2.9 g/dL (1.7-4.1); Glucose 100 mg/dL (80-110); HEMOLYSIS 17 (0-50); Potassium 4.1 mmol/L (3.4-5.1); Sodium 140 mmol/L (137-145); Total Protein 7.3 g/dL (6.3-8.2)
[2019-07-05] MEDS: SODIUM CHLORIDE 0.9% 1,000 ML 1000 ML IV (18:51)
[2019-07-05 18:56] VITALS: BP 131/51; PULSE 71; RESP 11
--- NOTE | 2019-07-05 19:08 | ED.NEUROSD ---
HPI - Neuro Symptoms/Deficit <Mahi Garcia MD - Last Filed: 07/05/19 19:54> General Chief Complaint: Neuro Symptoms/Deficit Stated Complaint: vision loss yesterday L eye,floaters Time Seen by Provider: 07/05/19 16:45 Source: patient Mode of arrival: Ambulatory Limitations: no limitations History of Present Illness HPI Narrative: Patient comes emergency department complaining of visual loss that occurred last evening. She states that she suddenly noticed that the left peripheral half of her vision in her left eye was gone, and that she had some floaters in her vision. She denies any nausea or vomiting or other focal neurologic deficits at the time. She states she had a mild headache, but this seems better now. She states she has never had symptoms like this ever before. No history of CVA. The patient reports a mitral valve replacement within the last several months. She states that she had an echocardiogram a couple of weeks ago at her net maker's office. Patient has not been ill with anything recently. She denies chest pain, shortness of breath, cough, or fevers. She currently wears glasses for near vision. No other complaints at this time. She states that the vision has not improved since onset of the deficit. On Anticoagulants: No ([id number]) Related Data Home Medications Medication Instructions Recorded Confirmed aspirin 81 mg tablet,delayed 81 mg PO DAILY 05/31/19 07/05/19 release furosemide 40 mg tablet 40 mg PO DAILY 05/31/19 07/05/19 lovastatin 40 mg tablet 40 mg PO QPM 05/31/19 07/05/19 metoprolol succinate 25 mg capsule 25 mg PO QPM 05/31/19 07/05/19 sprinkle, ext. release 24 hr venlafaxine 150 mg 150 mg PO DAILY 05/31/19 07/05/19 capsule,extended release 24 hr hydralazine 150 mg PO BID 06/23/19 07/05/19 levothyroxine 50 mcg PO DAILY 06/23/19 07/05/19 potassium chloride 20 meq PO DAILY 06/23/19 07/05/19 venlafaxine 75 mg PO DAILY 06/23/19 07/05/19 Allergies Allergy/AdvReac Type Severity Reaction Status Date / Time No Known Drug Allergies Allergy Verified 06/23/19 13:09 Review of Systems <Mahi Garcia MD - Last Filed: 07/05/19 19:54> Constitutional Constitutional: Denies chills, Denies fatigue, Denies fever(s), Denies frequent falls, Denies lethargy and Denies weakness Eyes Eyes: Reports change in vision, Denies eye discharge, Denies irritation and Denies loss of vision ENT Ears, Nose, Mouth, and Throat: Denies change in voice, Denies dizziness, Denies neck pain, Denies sore throat and Denies throat swelling Cardiovascular Cardiovascular: Denies chest pain, Denies irregular heart rhythm, Denies lightheadedness, Denies palpitations, Denies dyspnea, Denies dyspnea on exertion and Denies orthopnea Respiratory Respiratory: Denies cough, Denies dyspnea, Denies dyspnea on exertion and Denies wheezing Gastrointestinal Gastrointestinal: Denies abdominal pain, Denies change in bowel habits, Denies diarrhea, Denies nausea and Denies vomiting Genitourinary Genitourinary: Denies hematuria, Denies flank pain, Denies urinary incontinence and Denies urinary urgency Musculoskeletal Musculoskeletal: Denies back pain, Denies muscle weakness, Denies neck pain, Denies numbness and Denies tingling Integumentary/Breasts Skin/Breast: Denies pruritus, Denies erythema, Denies rash and Denies wounds Neurologic Neurologic: Denies behavioral changes, Denies confusion, Denies dizziness, Denies frequent falls, Denies loss of vision, Denies numbness, Denies tingling and Denies weakness Psychiatric Psychiatric: Denies anxiety, Denies behavioral changes, Denies confusion, Denies depression, Denies homicidal ideation and Denies suicidal ideation Endocrine Endocrine: Denies fatigue, Denies flushing and Denies palpitations Hematologic/Lymphatic Hematologic/Lymphatic: Denies easy bruising Allergic/Immunologic Allergic/Immunologic: Denies urticaria, Denies throat swelling and Denies wheezing Patient History <Mahi Garcia MD - Last Filed: 07/05/19 19:54> Medical History Congestive heart failure (Acute) Gout (Acute) Surgical History H/O mitral valve replacement (Acute) Social History Smoking Status: Never smoker Social History household members: spouse Smoking Status: Never smoker alcohol intake: current alcohol intake frequency: holidays/special occasions only Substance Use Type: does not use Exam <Mahi Garcia MD - Last Filed: 07/05/19 19:54> Initial Vital Signs Initial Vital Signs: Vital Signs Temperature 97.9 F 07/05/19 16:35 Pulse Rate 77 07/05/19 16:35 Respiratory Rate 20 07/05/19 16:35 Blood Pressure 151/79 H 07/05/19 16:35 Pulse Oximetry 97 07/05/19 16:35 Const General: cooperative and well developed Nutritional Appearance: well nourished Orientation: alert, awake, oriented x3 and not confused HENMT Head: normocephalic and atraumatic Ears: external ears normal Nose: external nose normal and No nasal discharge Face and sinus: face symmetric and No dry mucous membranes Mouth: oral mucosae normal and moist mucous membranes Teeth and gingiva: dentition normal Eyes General: appearance normal, both eyes and all related structures Eyelids: eyelids normal Conjunctivae: conjunctivae normal Sclera: sclerae normal Pupils: PERRL EOM: EOM intact bilaterally Neck Neck: normal visual inspection, trachea midline, No lymphadenopathy, No midline deformity and No JVD Lymphatic: No lymphedema Chest Chest: normal inspection of the chest Resp Effort & Inspection: normal respiratory effort, able to speak in complete sentences, no respiratory distress and no use of accessory muscles Auscultation: clear to auscultation bilaterally, no rales, no rhonchi and no wheezes Cardio Rate: regular rate Rhythm: regular rhythm Heart Sounds: no click, no gallops, no murmurs and no rubs Pulses: normal peripheral pulses GI Inspection: non-distended Palpation: soft, no hepatosplenomegaly, No guarding, No pulsatile mass and No tender Back/Spine/Pelvis Back: No CVA tenderness Cervical Spine: cervical ROM normal and No pain with cervical ROM Thoracic/Lumbar Spine: thoracic and lumbar spine normal to inspection Skin General: no rashes or lesions noted, No jaundice and No petechiae Neuro General: alert, awake, oriented x3, gait normal and no focal motor deficits Cognition: normal cognition Speech: speech normal Motor: muscle tone normal throughout and strength 5/5 throughout Sensory Exam: no sensory deficits noted Other: NIH stroke scale score 1 Extrem General: full ROM, no clubbing, cyanosis or edema, no pedal edema and no calf tenderness Psych Appearance: well kempt Mental Status: mental status grossly normal Attitude: cooperative Thought Content: normal and suicidality Judgment: judgment good <Minda Fair DO - Last Filed: 07/05/19 23:53> Initial Vital Signs Initial Vital Signs: Vital Signs Temperature 97.9 F 07/05/19 16:35 Pulse Rate 77 07/05/19 16:35 Respiratory Rate 20 07/05/19 16:35 Blood Pressure 151/79 H 07/05/19 16:35 Pulse Oximetry 97 07/05/19 16:35 Course <Mahi Garcia MD - Last Filed: 07/05/19 19:54> Course Course Narrative: Patient was worked up initially with a noncontrast CT scan of the head, which did show some subacute to late acute ischemia in the occipital lobe. Laboratory studies were obtained and patient was sent for CTA of the head and neck. Patient was pending CTA results, as well as disposition at the time of sign-out to Dr. Fair at change of shift. Orders Ordered: ED Orders 07/05/19 16:42 CT head/brain wo con Stat EKG-12 Lead Stat 07/05/19 17:35 CT angio head and neck Stat Complete Blood Count AUTO DIFF Stat Comprehensive Metabolic Panel Stat Partial Thromboplastin Time Stat Prothrombin Time INR Stat 07/05/19 21:02 EKG-12 Lead Routine Apixaban (Eliquis) 5 mg PO BID [facility] Furosemide (Lasix) 40 mg PO DAILY [facility] Levothyroxine Sodium (Synthroid) 50 mcg PO DAILY [facility] Metoprolol Tartrate (Lopressor) 25 mg PO BID [facility] Ondansetron HCl (Zofran) 4 mg IV Q8HR PRN PRN Reason: Nausea And Vomiting Venlafaxine HCl (Effexor Xr) 225 mg PO DAILY [facility] Discontinued Medications Aspirin (Aspirin) 325 mg PO NOW ONE Stop: 07/05/19 17:38 Last Admin: 07/05/19 17:49 Dose: Not Given Documented by: EMMIE Hydralazine HCl (Apresoline) 150 mg PO BID [facility] Sodium Chloride (Normal Saline 0.9%) 1,000 mls @ 1,000 mls/hr IV BOLUS ONE Stop: 07/05/19 19:07 Last Infusion: 07/05/19 21:00 Dose: 0 mls/hr Documented by: Admin: 07/05/19 18:51 Dose: 1,000 mls/hr Documented by: JAYJAY Vital Signs Vital signs: Vital Signs - 8 hr 07/05/19 16:35 07/05/19 18:56 07/05/19 20:10 Temperature 97.9 F Pulse Rate 77 71 66 Respiratory Rate 20 11 L 14 Blood Pressure 151/79 H Blood Pressure [Right Arm] 131/51 L 140/57 L Pulse Oximetry 97 97 07/05/19 21:20 Temperature 97.7 F Pulse Rate 75 Respiratory Rate 20 Blood Pressure 151/68 H Blood Pressure [Right Arm] Pulse Oximetry 98 <Minda Fair, - Last Filed: 07/05/19 23:53> Orders Ordered: ED Orders 07/05/19 16:42 CT head/brain wo con Stat EKG-12 Lead Stat 07/05/19 17:35 CT angio head and neck Stat Complete Blood Count AUTO DIFF Stat Comprehensive Metabolic Panel Stat Partial Thromboplastin Time Stat Prothrombin Time INR Stat 07/05/19 21:02 EKG-12 Lead Routine Apixaban (Eliquis) 5 mg PO BID [facility] Furosemide (Lasix) 40 mg PO DAILY [facility] Levothyroxine Sodium (Synthroid) 50 mcg PO DAILY [facility] Metoprolol Tartrate (Lopressor) 25 mg PO BID [facility] Ondansetron HCl (Zofran) 4 mg IV Q8HR PRN PRN Reason: Nausea And Vomiting Venlafaxine HCl (Effexor Xr) 225 mg PO DAILY [facility] Discontinued Medications Aspirin (Aspirin) 325 mg PO NOW ONE Stop: 07/05/19 17:38 Last Admin: 07/05/19 17:49 Dose: Not Given Documented by: EMMIE Hydralazine HCl (Apresoline) 150 mg PO BID [facility] Sodium Chloride (Normal Saline 0.9%) 1,000 mls @ 1,000 mls/hr IV BOLUS ONE Stop: 07/05/19 19:07 Last Infusion: 07/05/19 21:00 Dose: 0 mls/hr Documented by: Admin: 07/05/19 18:51 Dose: 1,000 mls/hr Documented by: JAYJAY Vital Signs Vital signs: Vital Signs - 8 hr 07/05/19 16:35 07/05/19 18:56 07/05/19 20:10 Temperature 97.9 F Pulse Rate 77 71 66 Respiratory Rate 20 11 L 14 Blood Pressure 151/79 H Blood Pressure [Right Arm] 131/51 L 140/57 L Pulse Oximetry 97 97 07/05/19 21:20 Temperature 97.7 F Pulse Rate 75 Respiratory Rate 20 Blood Pressure 151/68 H Blood Pressure [Right Arm] Pulse Oximetry 98 MDM - Neuro Symptoms/Deficit <Mahi Garcia MD - Last Filed: 07/05/19 19:54> Lab Data Result diagrams: 07/05/19 17:35 07/05/19 17:35 Labs: Lab Results 07/05/19 07/05/19 07/05/19 Range/Units 17:35 17:35 17:35 WBC 7.5 (4.5-11.0) X10^3/uL RBC 4.31 (4.0-5.2) X10^6/uL Hgb 13.1 (12.0-16.0) g/dL Hct 40.0 (36-46) % MCV 92.7 (80-100) fL MCH 30.3 (26-34) PG MCHC 32.7 (30-36) % RDW 14.6 (11.6-14.8) % Plt Count 244 (150-400) X10^3/uL Neut % (Auto) 55.3 (50-75) % Lymph % (Auto) 34.6 (25-40) % Mccreary % (Auto) 8.2 (3-14) % Eos % (Auto) 0.9 L (2-4) % Baso % (Auto) 1.0 (0-2) % Neut # (Auto) 4100 (2800-7350) /uL Lymph # (Auto) 2600 (0083-5180) /uL Mccreary # (Auto) 600 (0-900) /uL Eos # (Auto) 100 (0-450) /uL Baso # (Auto) 100 (0-100) /uL PT 12.0 (10.1-12.7) SECONDS INR 1.0 (0.9-1.3) APTT 30 (26.4-36.2) SECONDS Sodium 140 (137-145) mmol/L Potassium 4.1 (3.4-5.1) mmol/L Chloride 100 (98-107) mmol/L Carbon Dioxide 30 (22-32) mmol/L BUN 31 H (7-17) mg/dL Creatinine 1.40 H (0.52-1.04) mg/dL Estimated GFR 36.8 L (>60) mL/min BUN/Creatinine Ratio 22.1 H (6-22) Glucose 100 (80-110) mg/dL Calcium 9.5 (8.4-10.2) mg/dL Magnesium (1.6-2.3) mg/dL Total Bilirubin 0.6 (0.2-1.3) mg/dL AST 36 (14-36) IU/L ALT 23 (9-52) IU/L Alkaline Phosphatase 86 (38-126) U/L Troponin I (0.01-0.034) ng/mL Total Protein 7.3 (6.3-8.2) g/dL Albumin 4.4 (3.5-5.0) g/dL Globulin 2.9 (1.7-4.1) g/dL Albumin/Globulin Ratio 1.5 (1.0-2.8) 07/05/19 07/05/19 Range/Units 19:35 19:35 WBC (4.5-11.0) X10^3/uL RBC (4.0-5.2) X10^6/uL Hgb (12.0-16.0) g/dL Hct (36-46) % MCV (80-100) fL MCH (26-34) PG MCHC (30-36) % RDW (11.6-14.8) % Plt Count (150-400) X10^3/uL Neut % (Auto) (50-75) % Lymph % (Auto) (25-40) % Mccreary % (Auto) (3-14) % Eos % (Auto) (2-4) % Baso % (Auto) (0-2) % Neut # (Auto) (3048-4853) /uL Lymph # (Auto) (4498-8395) /uL Mccreary # (Auto) (0-900) /uL Eos # (Auto) (0-450) /uL Baso # (Auto) (0-100) /uL PT (10.1-12.7) SECONDS INR (0.9-1.3) APTT (26.4-36.2) SECONDS Sodium (137-145) mmol/L Potassium (3.4-5.1) mmol/L Chloride (98-107) mmol/L Carbon Dioxide (22-32) mmol/L BUN (7-17) mg/dL Creatinine (0.52-1.04) mg/dL Estimated GFR (>60) mL/min BUN/Creatinine Ratio (6-22) Glucose (80-110) mg/dL Calcium (8.4-10.2) mg/dL Magnesium 2.4 H (1.6-2.3) mg/dL Total Bilirubin (0.2-1.3) mg/dL AST (14-36) IU/L ALT (9-52) IU/L Alkaline Phosphatase (38-126) U/L Troponin I 0.012 (0.01-0.034) ng/mL Total Protein (6.3-8.2) g/dL Albumin (3.5-5.0) g/dL Globulin (1.7-4.1) g/dL Albumin/Globulin Ratio (1.0-2.8) Point of Care Testing Glucose POC 117 Urine Dip Bedside Urine Glucose Negative Bedside Urine Bilirubin - Negative Bedside Urine Ketone - Negative Urine Specific [place] 1.010 Bedside Urine Occult Blood - Negative Bedside Urine pH 6.0 Bedside Urine Protein - Negative Bedside Urine Urobilinogen - Negative Bedside Urine Nitrite - Negative Bedside Urine Leukocytes - Negative Esterase <Minda Fair, - Last Filed: 07/05/19 23:53> Lab Data Attestation: I reviewed the patient's lab results. Labs: Lab Results 07/05/19 07/05/19 07/05/19 Range/Units 17:35 17:35 17:35 WBC 7.5 (4.5-11.0) X10^3/uL RBC 4.31 (4.0-5.2) X10^6/uL Hgb 13.1 (12.0-16.0) g/dL Hct 40.0 (36-46) % MCV 92.7 (80-100) fL MCH 30.3 (26-34) PG MCHC 32.7 (30-36) % RDW 14.6 (11.6-14.8) % Plt Count 244 (150-400) X10^3/uL Neut % (Auto) 55.3 (50-75) % Lymph % (Auto) 34.6 (25-40) % Mccreary % (Auto) 8.2 (3-14) % Eos % (Auto) 0.9 L (2-4) % Baso % (Auto) 1.0 (0-2) % Neut # (Auto) 4100 (4781-8626) /uL Lymph # (Auto) 2600 (3422-6870) /uL Mccreary # (Auto) 600 (0-900) /uL Eos # (Auto) 100 (0-450) /uL Baso # (Auto) 100 (0-100) /uL PT 12.0 (10.1-12.7) SECONDS INR 1.0 (0.9-1.3) APTT 30 (26.4-36.2) SECONDS Sodium 140 (137-145) mmol/L Potassium 4.1 (3.4-5.1) mmol/L Chloride 100 (98-107) mmol/L Carbon Dioxide 30 (22-32) mmol/L BUN 31 H (7-17) mg/dL Creatinine 1.40 H (0.52-1.04) mg/dL Estimated GFR 36.8 L (>60) mL/min BUN/Creatinine Ratio 22.1 H (6-22) Glucose 100 (80-110) mg/dL Calcium 9.5 (8.4-10.2) mg/dL Magnesium (1.6-2.3) mg/dL Total Bilirubin 0.6 (0.2-1.3) mg/dL AST 36 (14-36) IU/L ALT 23 (9-52) IU/L Alkaline Phosphatase 86 (38-126) U/L Troponin I (0.01-0.034) ng/mL Total Protein 7.3 (6.3-8.2) g/dL Albumin 4.4 (3.5-5.0) g/dL Globulin 2.9 (1.7-4.1) g/dL Albumin/Globulin Ratio 1.5 (1.0-2.8) 10/20/19 10/20/19 Range/Units 19:35 19:35 WBC (4.5-11.0) X10^3/uL RBC (4.0-5.2) X10^6/uL Hgb (12.0-16.0) g/dL Hct (36-46) % MCV (80-100) fL MCH (26-34) PG MCHC (30-36) % RDW (11.6-14.8) % Plt Count (150-400) X10^3/uL Neut % (Auto) (50-75) % Lymph % (Auto) (25-40) % Mccreary % (Auto) (3-14) % Eos % (Auto) (2-4) % Baso % (Auto) (0-2) % Neut # (Auto) (2910-9468) /uL Lymph # (Auto) (0802-8556) /uL Mccreary # (Auto) (0-900) /uL Eos # (Auto) (0-450) /uL Baso # (Auto) (0-100) /uL PT (10.1-12.7) SECONDS INR (0.9-1.3) APTT (26.4-36.2) SECONDS Sodium (137-145) mmol/L Potassium (3.4-5.1) mmol/L Chloride (98-107) mmol/L Carbon Dioxide (22-32) mmol/L BUN (7-17) mg/dL Creatinine (0.52-1.04) mg/dL Estimated GFR (>60) mL/min BUN/Creatinine Ratio (6-22) Glucose (80-110) mg/dL Calcium (8.4-10.2) mg/dL Magnesium 2.4 H (1.6-2.3) mg/dL Total Bilirubin (0.2-1.3) mg/dL AST (14-36) IU/L ALT (9-52) IU/L Alkaline Phosphatase (38-126) U/L Troponin I 0.012 (0.01-0.034) ng/mL Total Protein (6.3-8.2) g/dL Albumin (3.5-5.0) g/dL Globulin (1.7-4.1) g/dL Albumin/Globulin Ratio (1.0-2.8) Point of Care Testing Glucose POC 117 Urine Dip Bedside Urine Glucose Negative Bedside Urine Bilirubin - Negative Bedside Urine Ketone - Negative Urine Specific [place] 1.010 Bedside Urine Occult Blood - Negative Bedside Urine pH 6.0 Bedside Urine Protein - Negative Bedside Urine Urobilinogen - Negative Bedside Urine Nitrite - Negative Bedside Urine Leukocytes - Negative Esterase ECG Data Attestation: I personally reviewed and interpreted this ECG as follows: Interpretation: sinus rhythm with occasional pvc. rate of 75, pr of 166, qrs of 108, qtc 459. Nonspecific T-wave change. MDM Narrative Medical decision making narrative: Spoke with CONNIE Bahena who accepts for observation for CVA. Patient has received ASA 324mg. Initial head CT shows acute/subacute infarct. CTA shows no high-grade stenosis or occlusion of the head neck arteries or central intracranial arteries. There is some minimal narrowing of less than 50% carotid bulbs. Findings compatible with subacute infarct in the medial right occipital lobe are re-demonstrated. Irregular nodular opacities are visualized in the right upper lobe. Patient's lab work shows a normal CBC, creatinine is 1.4 which appears close to baseline with normal electrolytes. Patient's NIH was 1 with no other findings other than her loss of vision which she states is still present and has not improved. Discharge Plan Departure Patient Disposition: Admitted As Inpatient Clinical Impression: Cerebrovascular accident Discharge Date/Time: 07/05/19 22:29 Referrals: Adelina Watkins PA-C [Primary Care Provider] - Admit Date/Time: 07/05/19 21:22 Admit Provider: Kezia Bahena
[2019-07-05 20:10] VITALS: BP 140/57; PULSE 66; RESP 14; O2SAT 97
[2019-07-05 21:20] VITALS: BP 151/68; PULSE 75; RESP 20; TEMP 36.5; O2SAT 98
[2019-07-05 21:48] VITALS: BMI 38.8
[2019-07-05 21:49] LABS: Magnesium 2.4 mg/dL (1.6-2.3)
[2019-07-05 22:39] LABS: Troponin I 0.012 ng/mL (0.01-0.034)
--- NOTE | 2019-07-05 22:40 | PC.ADMIT ---
[email or web address] Sarah [facility] Admission Note: The patient,Lesia Arizmendi,73 y/o, was given written information regarding hospital policies, unit procedures and contact persons. Patient's smoking status: Never smoker. Pt arrived from ED via stretcher at approx 2120. Able to ambulate to bed with minimal assist. Skin check completed with student nurse. NIH 0. Continues to report dimness and floaters in left visual field. Oriented to room and call system. Bed alarm placed on. Donned Yellow gown and red socks. Tele on. Call light within reach. Student nurse participating with care, all care provided by student has been under the supervision of this residential mortgage underwriter. Vital Signs - 8 hr 07/05/19 16:35 07/05/19 18:56 07/05/19 20:10 Temperature 97.9 F Pulse Rate 77 71 66 Respiratory Rate 20 11 L 14 Blood Pressure 151/79 H Blood Pressure [Right Arm] 131/51 L 140/57 L Pulse Oximetry 97 97 07/05/19 21:20 Temperature 97.7 F Pulse Rate 75 Respiratory Rate 20 Blood Pressure 151/68 H Blood Pressure [Right Arm] Pulse Oximetry 98
[2019-07-05 23:40] VITALS: BP 128/64; PULSE 73; RESP 16; TEMP 36.6; O2SAT 93
[2019-07-06] VITALS (9 sets, daily range): BP systolic 119–134; BP diastolic 62–70; PULSE 62–71; RESP 14–28; TEMP 36.3–36.9; O2SAT 93–97
--- NOTE | 2019-07-06 00:09 | PM.HP.1 ---
History of Present Illness History of Present Illness Date Patient Seen: 07/05/19 Time Patient Seen: 20:00 Chief complaint: vision loss yesterday L eye,floaters Narrative: Lesia Arizmendi is a pleasant 73-year-old female recent mitral bioprosthetic valve replacement in September of this year, hypertension, recent diagnosis of CHF 2 weeks ago, and hyperlipidemia, who was in her usual state of health when she developed a headache yesterday and then found that she had problems seeing out of her left eye. She is currently taking baby aspirin after having been on warfarin for 3 months and that was stopped. She sees a staff air tactical officer Dr.Rajesh Page at [facility] in [place]. Per her staff air tactical officer, and this was stopped due to to the patient's noncompliance. Her headache resolved yesterday. She also states that she had shortness of breath approximately 2 weeks ago and was diagnosed with CHF at [place] [facility], and discharged home with a prescription for Lasix. Currently her only symptom is that she has hemianopsia stating she can't see out of her left eye but everything is much darker. She denies have chest pain, shortness of breath at this time, nausea or vomiting, dysuria, diarrhea, constipation, however she does endorse having lower extremity swelling. After her discharge 2 weeks ago from [facility], she saw her staff air tactical officer and they did an echocardiogram on June 24. The echocardiogram indicated a left ventricular ejection fraction of 35-40% with global hypokinesis. It also stated resting regional wall motion abnormalities of the septum consistent with previous surgery. Patient History Medical History (Updated 07/06/19 @ 00:19 by CONNIE Adame) Congestive heart failure (Chronic) Gout (Acute) Surgical History (Updated 07/06/19 @ 00:19 by CONNIE Adame) H/O mitral valve replacement (Chronic) Family History (Updated 07/06/19 @ 00:20 by CONNIE Adame) Mother Pancreatic cancer Father Diabetes mellitus Social History household members: spouse Smoking Status: Never smoker alcohol intake: current Family & Social History Family History (Updated 07/06/19 @ 00:20 by CONNIE Adame) Mother Pancreatic cancer Father Diabetes mellitus Social History: household members spouse Prior Living Arrangements House Safety & Behavioral: Feels Safe in Current Yes Environment Been Physically Hurt or No Threatened By a Person Suicidal Ideation Description None Suicide Plan Description No Plan Tobacco & Substance use: Smoking Status Never smoker alcohol intake current alcohol intake frequency holiday/special occasion Substance Use Type does not use Meds Home Medications and Allergies Home Medications Medication Instructions Recorded Confirmed Type aspirin 81 mg tablet,delayed 81 mg PO DAILY 05/31/19 07/05/19 History release furosemide 40 mg tablet 40 mg PO DAILY 05/31/19 07/05/19 History lovastatin 40 mg tablet 40 mg PO QPM 05/31/19 07/05/19 History metoprolol succinate 25 mg capsule 25 mg PO QPM 05/31/19 07/05/19 History sprinkle, ext. release 24 hr venlafaxine 150 mg 150 mg PO DAILY 05/31/19 07/05/19 History capsule,extended release 24 hr hydralazine 150 mg PO BID 06/23/19 07/05/19 History levothyroxine 50 mcg PO DAILY 06/23/19 07/05/19 History potassium chloride 20 meq PO DAILY 06/23/19 07/05/19 History venlafaxine 75 mg PO DAILY 06/23/19 07/05/19 History Allergies Allergy/AdvReac Type Severity Reaction Status Date / Time No Known Drug Allergies Allergy Verified 06/23/19 13:09 Review of Systems Review of Systems ROS Unobtainable: All systems reviewed & are unremarkable except as noted in HPI and below Exam Vital Signs (past 8 hours): - 07/05/19 16:35 07/05/19 18:56 07/05/19 20:10 Temperature 97.9 F Pulse Rate 77 71 66 Respiratory Rate 20 11 L 14 Blood Pressure 151/79 H Blood Pressure [Right Arm] 131/51 L 140/57 L Pulse Oximetry 97 97 07/05/19 21:20 Temperature 97.7 F Pulse Rate 75 Respiratory Rate 20 Blood Pressure 151/68 H Blood Pressure [Right Arm] Pulse Oximetry 98 Oxygen Delivery Method Room Air Oxygen Flow Rate 0 Narrative Exam Narrative: Gen: Alert, oriented, well-developed 73 y.o. female, appears comfortable HEENT: normocephalic, atraumatic, PERLLA, conjunctiva clear, sclera non-icteric, oral mucosa pink and moist Neck: supple, full ROM Resp: Lungs CTA, non-labored breathing CV: RRR, no murmur or rubs Abd: soft, non-tender, normoactive BTs Skin: no lesions or rashes, dry and intact Neuro: Alert and oriented X 4, EOM equal and bilateral, CN II-XI intact and bilateral Extremities: moves all 4 extremities, no pronator drift, is ambulatory, negative Tray?s sign Psyche: normal mood and affect. Objective Labs Result Diagrams: 07/05/19 17:35 07/05/19 17:35 Labs: Laboratory Results - last 24 hr 07/05/19 07/05/19 07/05/19 17:35 17:35 17:35 WBC 7.5 RBC 4.31 Hgb 13.1 Hct 40.0 MCV 92.7 MCH 30.3 MCHC 32.7 RDW 14.6 Plt Count 244 Neut % (Auto) 55.3 Lymph % (Auto) 34.6 [place] % (Auto) 8.2 Eos % (Auto) 0.9 L Baso % (Auto) 1.0 Neut # (Auto) 4100 Lymph # (Auto) 2600 [place] # (Auto) 600 Eos # (Auto) 100 Baso # (Auto) 100 PT 12.0 INR 1.0 APTT 30 Sodium 140 Potassium 4.1 Chloride 100 Carbon Dioxide 30 BUN 31 H Creatinine 1.40 H Estimated GFR 36.8 L BUN/Creatinine Ratio 22.1 H Glucose 100 Calcium 9.5 Magnesium Total Bilirubin 0.6 AST 36 ALT 23 Alkaline Phosphatase 86 Troponin I Total Protein 7.3 Albumin 4.4 Globulin 2.9 Albumin/Globulin Ratio 1.5 07/05/19 07/05/19 19:35 19:35 WBC RBC Hgb Hct MCV MCH MCHC RDW Plt Count Neut % (Auto) Lymph % (Auto) [place] % (Auto) Eos % (Auto) Baso % (Auto) Neut # (Auto) Lymph # (Auto) [place] # (Auto) Eos # (Auto) Baso # (Auto) PT INR APTT Sodium Potassium Chloride Carbon Dioxide BUN Creatinine Estimated GFR BUN/Creatinine Ratio Glucose Calcium Magnesium 2.4 H Total Bilirubin AST ALT Alkaline Phosphatase Troponin I 0.012 Total Protein Albumin Globulin Albumin/Globulin Ratio Assessment & Plan Assessment & Plan narrative: Lesia Arizmendi will be admitted as an inpatient to further evaluate and manage her symptoms of a right occipital lobe infarct. 1. Right occipital lobe CVA acute, present on admission Patient will have 4 hour neuro checks and NIH scoring NIH score is 1 Physical therapy evaluation in the morning Patient did not have any speech impairment so I have not ordered speech swallow evaluation I have discussed further care management with her staff air tactical officer We have discussed anticoagulation and she will start apixaban 5 mg b.i.d. in the morning Last echocardiogram was done on June 24 2019 and is available in her chart. 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 Current EKGs and previous echocardiogram did not identify a current diagnosis of atrial fibrillation. 2. Essential hypertension, chronic and stable, present on admission We will exercise permissive hypertension over the evening Holding her home dose of hydralazine Patient will be initiated on metoprolol immediate release 25 mg b.i.d. with parameters 3. Recent diagnosis of congestive heart failure, chronic, present on admission She had a BNP of 304 in March of this year This will be repeated tonight and is pending 4. Hyperlipidemia She is initiated on atorvastatin 40 mg p.o. daily. She was previously taking lovastatin 40 mg daily 5. Left eye hemianopsia Recommend immediate consultation with a local equipment records supervisor for close follow-up to identify whether she may have had a simultaneous floater versus scotoma verses effect of the CVA. Patient is admitted inpatient due to the severity of her symptoms and that her stay is anticipated to exceed 2 midnights. FEN: IV saline lock, cardiac diet, chemistries in the am. VTE Prophylaxis: She received full strength aspirin in the emergency department tonight. She will be initiated on apixaban in the morning. Disposition: Unknown at this time, likely home Code status: Full code Admission time: 95 minutes Meds reconciled: Yes based on current med list Scores CHADS-VASc Congestive heart failure: yes Hypertension: yes Age 75 years or older: no Diabetes mellitus: no Stroke, TIA, or TE: yes Vascular disease: yes Age 65 to 74 years: yes Sex category (female): Female CHADS-VASc Score: 7
[2019-07-06 01:12] LABS: B Type Natriuretic Peptide < 100 (<100)
[2019-07-06 05:37] LABS: Add Manual Diff / Slide Review NO; Basophils Absolute Auto 100 /uL (0-100); Basophils Percent Auto 1.4 % (0-2); Eosinophils Absolute Auto 200 /uL (0-450); Eosinophils Percent Auto 2.2 % (2-4); Hematocrit 36.7 % (36-46); Hemoglobin 12.2 g/dL (12.0-16.0); Lymphocytes Absolute Auto 2600 /uL (1100-4500); Lymphocytes Percent Auto 37.2 % (25-40); Mean Corpuscular HGB Conc 33.2 % (30-36); Mean Corpuscular Hemoglobin 30.4 PG (26-34); Mean Corpuscular Volume 91.5 fL (80-100); Monocytes Absolute Auto 700 /uL (0-900); Monocytes Percent Auto 10.2 % (3-14); Neutrophils Absolute Auto 3400 /uL (1500-7000); Platelet Count 218 X10^3/uL (150-400); Red Blood Cell Count 4.01 X10^6/uL (4.0-5.2); Red Cell Distribution Width 14.8 % (11.6-14.8)
[2019-07-06 05:40] LABS: Prothrombin Time 11.6 SECONDS (10.1-12.7)
[2019-07-06 05:46] LABS: BUN Creatinine Ratio 20.8 (6-22); Blood Urea Nitrogen 25 mg/dL (7-17); Calcium 9.1 mg/dL (8.4-10.2); Carbon Dioxide 29 mmol/L (22-32); Chloride 106 mmol/L (98-107); Cholesterol 146 mg/dL (140-199); Estimated Glomerular Filt Rate 43.9 mL/min (>60); Glucose 102 mg/dL (80-110); HDL Cholesterol 52 mg/dL (40-60); HEMOLYSIS < 15 (0-50); LDL Cholesterol Calculated 69 mg/dL (<100); Potassium 3.9 mmol/L (3.4-5.1); Sodium 141 mmol/L (137-145); Triglycerides 127 mg/dL (35-150)
[2019-07-06 05:58] LABS: Troponin I 0.015 ng/mL (0.01-0.034)
[2019-07-06 06:20] LABS: TSH w/ Reflex to FT4 1.99 uIU/mL (0.47-4.68)
[2019-07-06] MEDS: LEVOTHYROXINE 50 MCG TABLET PO (08:21)
[2019-07-06] MEDS: FUROSEMIDE 40 MG TABLET PO (08:21)
[2019-07-06] MEDS: APIXABAN 5 MG TABLET PO ×2 (08:21→21:29)
[2019-07-06] MEDS: METOPROLOL IR 25 MG TABLET PO ×2 (08:21→21:29)
[2019-07-06] MEDS: SODIUM CHLORIDE 0.9% FLUSH 10 ML IV ×2 (08:22→21:28)
[2019-07-06] MEDS: VENLAFAXINE ER 75 MG CAP 225 MG PO (08:36)
--- NOTE | 2019-07-06 11:05 | OT.IP.EVAL ---
Past Medical History (Last Updated 07/06/19 @ 00:19 by CONNIE Adame) Congestive heart failure (Chronic) Gout (Acute) Surgical History (Last Updated 07/06/19 @ 00:19 by CONNIE Adame) H/O mitral valve replacement (Chronic) Occupational Therapy Inpatient Evaluation/Re-Eval M1 PT/OT-IP Prior Functional Status Start: 07/06/19 12:00 Freq: NEEDED Status: Active Protocol: Document 07/06/19 12:00 CGR (Rec: 07/06/19 12:17 CGR [id number]) Medical Review Prior Functional Status Medical History Reviewed Yes Communication Pt is able to effectively communicate Mobility and Gait Pt was IND at baseline without AD Activities of Daily Living and IADL's Pt was IND at baseline without AD Social History Household Members spouse Living Arrangements House Number of Floors (Floors) One Floor Number of Stairs To Enter/Railing? 1 step to enter without rail. 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 M2 OT-IP Current Condition Start: 07/06/19 12:00 Freq: Status: Active Protocol: Document 07/06/19 12:00 CGR (Rec: 07/06/19 12:17 R [id number]) Occupational Therapy Current Condition Current Condition Evaluation Date 07/06/19 Treatment Diagnosis CVA with L visual involvement Diagnosis Onset Date 07/05/19 M3 OT- IP Subjective and Pain Start: 07/06/19 12:00 Freq: Status: Active Protocol: Document 07/06/19 12:00 CGR (Rec: 07/06/19 12:17 R [id number]) OT- Subjective Occupational Therapy Visit Type Type Initial Evaluation Visit Start Time 10:36 Visit Stop Time 11:05 Total Visit Minutes 29 Notes Discussed case with P.T., no P .T. needs at this time. Occupational Therapy Visit Comments Patient Comments How long before I can drive again OT Pain Assessment Pain When Pain Assessed At Rest Pain Present Pain Present Denied Pain M4 OT- IP ADL's Start: 07/06/19 12:00 Freq: Status: Active Protocol: Document 07/06/19 12:00 CGR (Rec: 07/06/19 12:17 CGR [id number]) OT [id number] Comments OT Self-Feeding Comments Not meal time OT ADL-Grooming General Evaluation Grooming Ability Independent OT ADL-Oral Care General Eval Oral Care Ability Independent OT ADL-Dressing General Eval Upper Body Dressing Ability Independent Lower Body Dressing Ability Independent Areas Needing Assistance Pull-Over Shirt,Socks OT ADL-Toileting General Evaluation Toileting Ability Independent OT ADL-Bathing Comments OT Bathing Comments Not performed M5 OT- IP IADL's Start: 07/06/19 12:00 Freq: Status: Active Protocol: Document 07/06/19 12:00 CGR (Rec: 07/06/19 12:17 CGR [id number]) OT-Instrumental Activities of Daily Living Deficits IADL Deficits Identified Deficits Home Safety Awareness Awareness of Need for Assistance at Home Good Awareness Ability to Problem Solve Emergency Able to Problem Solve Situations Home Safety Comments Pt agrees that kalee wouldn' t be safe but asks when she will be able to drive again. 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 Discussed with pt that she is not currently a safe team cdl driver given her missing L sided vision. M6 OT- IP Functional Cognition Start: 07/06/19 12:00 Freq: Status: Active Protocol: Document 07/06/19 12:00 CGR (Rec: 07/06/19 12:17 CGR [id number]) Cognitive Factors Limiting Selfcare Function Cognitive Ability Level of Alertness Alert Patient Orientation Name,Age,Birthday,Month,Date, Year,Day of Week,Place, Situation Attention Span Ability Capable of Focused Attention, Capable of Sustained Attention Ability to Follow Commands Able to Follow Multi-Step Commands Memory Description No Deficits Noted Safety Awareness Underestimates Need for Assistance Problem Solving Ability No deficits Noted OT- Vision and Hearing OT- Hearing Assessment OT- Hearing Assessment WFL OT- Vision Assessment Visual Acuity Glasses All The Time Visual Attentiveness WFL Occular Pursuits WFL Visual Convergence WFL Visual [place] Impaired Diplopia Absent Vision Assessment Comments Pt demonstrates loss of her L visual field only in her left eye. She appears to maintain ~ 75% of her visual field missing only the far L. M7 OT- IP Mobility and Balance Start: 07/06/19 12:00 Freq: Status: Active Protocol: Document 07/06/19 12:00 CGR (Rec: 07/06/19 12:17 CGR [id number]) OT-Transfer Assessment Sit to and From Stand Sit to and from Stand Independent Transfers Transfer Ability Independent Technique Transfer Destination Chair,Toilet Transfer Technique Stand Step Pivot Devices Transfer Assistive Devices None OT- Gait Assessment Gait Gait Assistance Required: Independent Comments Gait Ability Comments Pt ambulated in the room and into the shaw. Educated pt on need to scan left every 2 steps and tested pt on room numbers and number of fingers being held up in her missing L visual field. Pt able to constantly scan to her left and maintain balance but does prefer to hold onto the rail stating that she has not been up and moving lately. OT- Balance Assessment Sitting Balance and Reactions Static Sitting Balance Ability Normal Dynamic Sitting Balance Ability Normal Standing Balance and Reactions Static Standing Balance Ability Normal Dynamic Standing Balance Ability Good M8 OT- IP Objective Assessments Start: 07/06/19 12:00 Freq: Status: Active Protocol: Document 07/06/19 12:00 CGR (Rec: 07/06/19 12:17 CGR [id number]) OT Gross Range of Motion Upper Extremity Range of Motion Assessment Within Functional Limits OT Strength Upper Extremity Strength Assessment Within Functional Limits OT- Coordination Assessment Upper Extremity Finger to Nose Test Within Functional Limits Finger Tapping Test Within Functional Limits OT-Muscle Tone Assessment Muscle Tone WNL Yes OT Sensation Assessment Edema Edema Absent M9 OT- IP Assessment and Plan Start: 07/06/19 12:00 Freq: Status: Active Protocol: Document 07/06/19 12:00 CGR (Rec: 07/06/19 12:17 CGR [id number]) OT Summary Assessment and Plan Potential Rehabilitation Potential Excellent Analytic Complexity at Evaluation Low Summary Progress Towards Goals Safe For Discharge,Goals Met Assessment Summary Pt presents as a low complexity evaluation. Pt presents at her baseline except for a L visual field cut from her left eye only. This leaves her with ~75% of her vision, missing her far left vision. Pt is aware of her deficit but will need outpatient OT services for assisting with increased visual awareness to the L side . Recommend no driving at this time. Ok for discharge home with family support. is an active team cdl driver and can drive pt to appointments as needed. Frequency of Treatment Frequency Of Treatment Discharge Discharge Recommendations OT Discharge Recommendations Home Other Discharge Recommendations Outpatient OT services for vision. Home Equipment Needs None at this time
--- NOTE | 2019-07-06 12:20 | CM.DANOTE ---
DCP: Case received, EMR reviewed and met with patient. Introduced self and role. Was able to obtain baseline health and activity level from patient. DCP assessment/template completed with information currently available. Patient is a 73 year old female who admitted yesterday evening to the care of the hospitalist team. PCP: Dr. Watkins. Payer: confirmed: Medicare/[employer]ARP. Patient came to the hospital via private vehicle secondary to some vision loss in left eye, as well as floaters. Patient had CT. scan, and holds diagnosis of right occipital lobe infarct. Patient is currently working with P.T, O.T. Occupational therapy is recommending outpatient O.T. for vision, and will communicate this with hospitalist. Met with patient in her room. She is independent, alert and oriented. She resides in [place] with her , Nickolas. She is independent, has been driving, but O.T. is recommending that she not be driving at this time. P: DCP to continue to follow closely. Patient should be able to go home when medically stable and cleared by the therapy team. She will be pursuing outpatient occupational therapy. Aga Art RN/Head Baker
[2019-07-06 12:28] LABS: Troponin I 0.015 ng/mL (0.01-0.034)
--- NOTE | 2019-07-06 13:07 | PT-IP ANOTE ---
PT UPDATE Per OT, who evaluated the patient today, there are no acute PT needs. Will sign off.
[2019-07-06] MEDS: BISACODYL 10 MG SUPP PR (14:46)
--- NOTE | 2019-07-06 19:39 | PM.PN.1 ---
Subjective Subjective Date Patient Seen: 07/06/19 Time Patient Seen: 10:50 Interval history: Lesia Arizmendi is a pleasant 73-year-old female recent mitral bioprosthetic valve replacement in September of this year, hypertension, recent diagnosis of CHF 2 weeks ago, and hyperlipidemia who was admitted with a right occipital lobe CVA and left-sided visual field defect. She reports no other symptoms today including headache, further vision changes, slurred speech, confusion, weakness, numbness. She was seen by Occupational therapy and she has a scheduled ophthalmology appointment tomorrow. I believe she should stay overnight for further monitoring given that she did have an acute stroke in the possibility of further events and to evaluate for possible atrial fibrillation. This stroke is likely embolic in nature according to her odd shoe examiner, however she has no known diagnosis of AFib and this has not been seen yet on telemetry. The plan is for discharge tomorrow morning. Exam Vital Signs (past 8 hours): - 07/06/19 12:00 07/06/19 16:00 Temperature 97.4 F L 97.8 F Pulse Rate 62 62 Respiratory Rate 14 28 H Blood Pressure 128/68 132/69 Pulse Oximetry 95 94 Oxygen Delivery Method Room Air Oxygen Flow Rate 0 Narrative Exam Narrative: GENERAL APPEARANCE: Well developed, well nourished, in no acute distress. SKIN: Inspection of the skin reveals no rashes, ulcerations or petechiae. HEENT: The sclerae were anicteric and conjunctivae were pink and moist. Extraocular movements were intact and pupils were equal, round with normal accommodation. External inspection of the ears and nose showed no scars, lesions, or masses. Lips, teeth, and gums showed normal mucosa. The oral mucosa, hard and soft palate, tongue and posterior pharynx were unremarkable. NECK: Supple and symmetric. There was no thyroid enlargement, and no tenderness, or masses were felt. CHEST: Normal AP diameter and normal contour without any kyphoscoliosis. LUNGS: Auscultation of the lungs revealed no wheezes, rhonchi, or rales. CARDIOVASCULAR: There was a regular rate and rhythm without any murmurs, gallops, rubs. Peripheral pulses were 2+ and symmetric. ABDOMEN: Soft and nontender with normal bowel sounds. No ascites was noted. MUSCULOSKELETAL: There was no tenderness or effusions noted. Muscle strength and tone were normal. EXTREMITIES: No cyanosis, clubbing or edema. NEUROLOGIC: Alert and oriented x 3. Normal affect. Gait was normal. Strength is +5/5 in the Upper Extremities and Lower Extremities Bilaterally. Sensation to touch was normal. Objective Labs Result Diagrams: 07/06/19 05:20 07/06/19 05:20 Labs: Laboratory Results - last 24 hr 07/05/19 07/05/19 07/05/19 17:35 19:35 19:35 WBC RBC Hgb Hct MCV MCH MCHC RDW Plt Count Neut % (Auto) Lymph % (Auto) [place] % (Auto) Eos % (Auto) Baso % (Auto) Neut # (Auto) Lymph # (Auto) [place] # (Auto) Eos # (Auto) Baso # (Auto) PT INR Sodium Potassium Chloride Carbon Dioxide BUN Creatinine Estimated GFR BUN/Creatinine Ratio Glucose Calcium Magnesium 2.4 H Troponin I 0.012 B-Natriuretic Peptide < 100 Triglycerides Cholesterol LDL Cholesterol, Calc HDL Cholesterol TSH 07/06/19 07/06/19 07/06/19 05:20 05:20 05:20 WBC 7.0 RBC 4.01 Hgb 12.2 Hct 36.7 MCV 91.5 MCH 30.4 MCHC 33.2 RDW 14.8 Plt Count 218 Neut % (Auto) 49.0 L Lymph % (Auto) 37.2 [place] % (Auto) 10.2 Eos % (Auto) 2.2 Baso % (Auto) 1.4 Neut # (Auto) 3400 Lymph # (Auto) 2600 [place] # (Auto) 700 Eos # (Auto) 200 Baso # (Auto) 100 PT 11.6 INR 1.0 Sodium Potassium Chloride Carbon Dioxide BUN Creatinine Estimated GFR BUN/Creatinine Ratio Glucose Calcium Magnesium Troponin I 0.015 B-Natriuretic Peptide Triglycerides Cholesterol LDL Cholesterol, Calc HDL Cholesterol TSH 07/06/19 07/06/19 07/06/19 05:20 05:20 11:25 WBC RBC Hgb Hct MCV MCH MCHC RDW Plt Count Neut % (Auto) Lymph % (Auto) [place] % (Auto) Eos % (Auto) Baso % (Auto) Neut # (Auto) Lymph # (Auto) [place] # (Auto) Eos # (Auto) Baso # (Auto) PT INR Sodium 141 Potassium 3.9 Chloride 106 Carbon Dioxide 29 BUN 25 H Creatinine 1.20 H Estimated GFR 43.9 L BUN/Creatinine Ratio 20.8 Glucose 102 Calcium 9.1 Magnesium Troponin I 0.015 B-Natriuretic Peptide Triglycerides 127 Cholesterol 146 LDL Cholesterol, Calc 69 HDL Cholesterol 52 TSH 1.99 Assessment & Plan Assessment & Plan narrative: Lesia Arizmendi will be admitted as an inpatient to further evaluate and manage her symptoms of a right occipital lobe infarct. 1. Right occipital lobe CVA acute, present on admission Patient will have 4 hour neuro checks and NIH scoring NIH score is 1 Occupational therapy has evaluated the patient, she will follow with the onboarding specialist here as an outpatient No physical therapy or speech evaluation is necessary after Occupational therapy evaluation. Case was discussed with her odd shoe examiner by admitting provider Continue apixaban 5 mg b.i.d. Last echocardiogram was done on June 24 2019 and is available in her chart. CTA indicates bilateral 50% occlusion of the bilateral carotid bulbs Patient will require close ophthalmological follow-up regarding the left eye hemianopsia, she is arranged for an outpatient evaluation tomorrow after discharge. Her odd shoe examiner requests close follow-up for possible placement of a loop recorder to identify if she has atrial fibrillation. Current EKGs and previous echocardiogram did not identify a current diagnosis of atrial fibrillation, and her telemetry has not shown atrial fibrillation here. 2. Essential hypertension, chronic and stable, present on admission Continue metoprolol immediate release 25 mg b.i.d. with parameters 3. Recent diagnosis of congestive heart failure, chronic, present on admission Continue home Lasix, she does not appear to be acutely volume overloaded. 4. Hyperlipidemia She is initiated on atorvastatin 40 mg p.o. daily. She was previously taking lovastatin 40 mg daily 5. Left eye hemianopsia Recommend immediate consultation with a local marshmallow machine operator for close follow-up to identify whether she may have had a simultaneous floater versus scotoma verses effect of the CVA. She has an outpatient appointment scheduled for tomorrow Patient is admitted inpatient, plan for discharge tomorrow morning. She requires further monitoring given acute stroke for possible further events and for additional evaluation for possible atrial fibrillation. FEN: IV saline lock, cardiac diet, chemistries in the am. VTE Prophylaxis: On apixaban. Disposition: Discharge home in the a.m. Code status: Full code
--- NOTE | 2019-07-06 20:24 | PC.NURSE ---
Evening note: Lesia sitting up in recliner from 1500 until 2000 when asked to get into bed. Denies headache pain, does report dim lateral peripheral vision to left eye. NIH = 1. Tele SR with BBB. Denies chest pain or SOB. VS stable. RA oxygen 94-96% LS clear. Ambulating to BR and in room with steady gait, needing only SBA. Had extra-large BM, voiding with no difficulty, missing hat entirely so voids are unmeausured. Reminded to call staff for any concerns/questions, alarm active for safety, fall precautions in place.
[2019-07-07 00:20] VITALS: O2SAT 97
[2019-07-07 06:00] VITALS: BP 121/61; PULSE 69; RESP 18; TEMP 36.6; O2SAT 95
[2019-07-07 08:46] VITALS: BP 129/64; PULSE 68; RESP 16; TEMP 36.8; O2SAT 94
[2019-07-07 09:03] VITALS: O2SAT 95
[2019-07-07] MEDS: VENLAFAXINE ER 75 MG CAP 225 MG PO (09:37)
[2019-07-07] MEDS: FUROSEMIDE 40 MG TABLET PO (09:37)
[2019-07-07] MEDS: METOPROLOL IR 25 MG TABLET PO (09:37)
[2019-07-07] MEDS: APIXABAN 5 MG TABLET PO (09:37)
[2019-07-07] MEDS: SODIUM CHLORIDE 0.9% FLUSH 10 ML IV (09:37)
[2019-07-07] MEDS: LEVOTHYROXINE 50 MCG TABLET PO (09:37)
--- NOTE | 2019-07-07 09:51 | PC.NURSE ---
Addendum entered by Elana Mendoza R.N. 07/07/19 11:44: Discharge home: IV dc'd intact. Tele dc'd. Reviewed home med list, discharge instructions and heart failure guidelines thoroughly with patient. Given hard copy of script for Xarelto which she will be taking instead of Eliquis (see below note). Instructed to start Xarelto w/ evening meal today, and new dose of Metoprolol starting tomorrow (she knows this script was sent already). Reviewed s/sx stroke and instructed to call 911 if they occur. Given phone # so she can call and schedule outpatient OT at her convenience. She plans to follow up w/ her certified court interpreter on as previously scheduled. Verbalized understanding of instructions and stated no further questions. All personal belongings sent w/ patient including glasses, cellphone/wood room supervisor,etc. Wheeled out to private vehicle by this typewriter ribbon winder. Addendum entered by Elana Mendoza R.N. 07/07/19 10:47: This typewriter ribbon winder called [facility] to check on new scripts ( sent electronically). Pharmacist at [facility] reported that patient's insurance will not cover Eliquis without prior authorization. Evidently they will cover Xarelto. Note left for Dr Mercado regarding this issue, will follow up if he doesn't get back to me shortly. Original Note: Shift summary: Awake and alert, oriented X3. Reports dim vision in lateral portion of L eye vision field unchanged from initial presentation. NIH=1. Denies chest pain/pressure/palpitations or SOB. Denies pain or discomfort. Lungs CTA, room air. HRR. SBA to BR, gait steady. Patient reports MD was going to discharge her home and she agreeable, anticipate orders. Has outpatient Opthamology appt at 1430 today. Able to make needs known and calls appropriately. Sitting up in chair, call light in reach.
--- NOTE | 2019-07-07 10:19 | PM.DS.1 ---
History of Present Illness History of Present Illness Date Patient Seen: 07/07/19 Time Patient Seen: 09:20 Chief complaint: vision loss yesterday L eye,floaters Narrative: As per CONNIE Adame: Lesia Arizmendi is a pleasant 73-year-old female recent mitral bioprosthetic valve replacement in September of this year, hypertension, recent diagnosis of CHF 2 weeks ago, and hyperlipidemia, who was in her usual state of health when she developed a headache yesterday and then found that she had problems seeing out of her left eye. She is currently taking baby aspirin after having been on warfarin for 3 months and that was stopped. She sees a construction grip Dr.Rajesh Page at [facility] in [place]. Per her construction grip, and this was stopped due to to the patient's noncompliance. Her headache resolved yesterday. She also states that she had shortness of breath approximately 2 weeks ago and was diagnosed with CHF at [facility], and discharged home with a prescription for Lasix. Currently her only symptom is that she has hemianopsia stating she can't see out of her left eye but everything is much darker. She denies have chest pain, shortness of breath at this time, nausea or vomiting, dysuria, diarrhea, constipation, however she does endorse having lower extremity swelling. After her discharge 2 weeks ago from [facility] ED, she saw her construction grip and they did an echocardiogram on June 24. The echocardiogram indicated a left ventricular ejection fraction of 35-40% with global hypokinesis. It also stated resting regional wall motion abnormalities of the septum consistent with previous surgery. Discharge Providers Provider Date of admission: 07/05/19 21:22 Discharge Date: 07/07/19 Primary care physician: Adelina Watkins PA-C Consults: 07/05/19 21:29 Consult to Discharge Planning Routine Comment: Consult to Occupational Therapy Evaluate & Treat Comment: Physician Instructions: Evaluate and treat 07/06/19 09:29 Consult to Physical Therapy Evaluate & Treat Comment: Physician Instructions: Evaluate and Treat Discharge provider: Hunter Mercado DO Summary Hospital Course Discharge Diagnosis: 1. Right occipital lobe CVA acute, present on admission - likely embolic but clinically unable to be determined. 2. Essential hypertension, chronic and stable, present on admission 3. Systolic heart failure, chronic, present on admission 4. Hyperlipidemia, chronic 5. Left eye hemianopsia, acute, present on admission Hospital Course: Lesia Arizmendi will be admitted as an inpatient to further evaluate and manage her symptoms of a right occipital lobe infarct. 1. Right occipital lobe CVA acute, present on admission - likely embolic however no afib was seen here. Carotid arteries with 50% stenosis. She was started on apixaban and will follow up with her outpatient construction grip. Occupational therapy has evaluated the patient, she will follow with the visual effects artist here as an outpatient or with an outside OT provider. No physical therapy or speech evaluation was necessary after Occupational therapy evaluation. Case was discussed with her construction grip by admitting provider Continue apixaban 5 mg b.i.d. for preseu Last echocardiogram was done on June 24 2019 and is available in her chart. CTA indicates bilateral 50% occlusion of the bilateral carotid bulbs Patient will require close ophthalmological follow-up regarding the left eye hemianopsia, she is arranged for an outpatient evaluation today after discharge. Her construction grip requests close follow-up for possible placement of a loop recorder to identify if she has atrial fibrillation. This is planned for 07/09. Current EKGs and previous echocardiogram did not identify a current diagnosis of atrial fibrillation, and her telemetry has not shown atrial fibrillation here. 2. Essential hypertension, chronic and stable, present on admission Increased metoprolol to 50 mg daily, good control as inpatient. Hydralazine was discontinued. 3. Chronic systolic heart failure, present on admission - last TTE 35-40% on 06/24/19. Patient did not require repeat TTE after event after discussion with her construction grip. Continue home Lasix and potassium repletion. she does not appear to be acutely volume overloaded. 4. Hyperlipidemia Can continue home lovastatin. 5. Left eye hemianopsia - likely secondary to above CVA. Recommend immediate consultation with a local catalogue maker for close follow-up to identify whether she may have had a simultaneous floater versus scotoma verses effect of the CVA. She has an outpatient appointment scheduled for today after discharge. Dispo: Discharge home in good condition Status at Discharge Cognitive/behavioral status at discharge: oriented Functional status at discharge: independent ambulation Time Spent with Patient Time spent: Greater than 30 minutes Exam Vital Signs (past 8 hours): - 07/07/19 06:00 07/07/19 08:46 07/07/19 09:03 Temperature 97.9 F 98.2 F Pulse Rate 69 68 Respiratory Rate 18 16 Blood Pressure 121/61 129/64 Pulse Oximetry 95 94 95 Oxygen Delivery Method Room Air Oxygen Flow Rate 0 Narrative Exam Narrative: GENERAL APPEARANCE: Well developed, well nourished, in no acute distress. SKIN: Inspection of the skin reveals no rashes, ulcerations or petechiae. HEENT: The sclerae were anicteric and conjunctivae were pink and moist. Extraocular movements were intact and pupils were equal, round with normal accommodation. External inspection of the ears and nose showed no scars, lesions, or masses. Lips, teeth, and gums showed normal mucosa. The oral mucosa, hard and soft palate, tongue and posterior pharynx were unremarkable. NECK: Supple and symmetric. There was no thyroid enlargement, and no tenderness, or masses were felt. CHEST: Normal AP diameter and normal contour without any kyphoscoliosis. LUNGS: Auscultation of the lungs revealed no wheezes, rhonchi, or rales. CARDIOVASCULAR: There was a regular rate and rhythm without any murmurs, gallops, rubs. Peripheral pulses were 2+ and symmetric. ABDOMEN: Soft and nontender with normal bowel sounds. No ascites was noted. MUSCULOSKELETAL: There was no tenderness or effusions noted. Muscle strength and tone were normal. EXTREMITIES: No cyanosis, clubbing or edema. NEUROLOGIC: Alert and oriented x 3. Normal affect. Gait was normal. Strength is +5/5 in the Upper Extremities and Lower Extremities Bilaterally. Sensation to touch was normal. Objective Labs Result Diagrams: 07/06/19 05:20 07/06/19 05:20 Labs: Laboratory Results - last 24 hr 07/06/19 11:25 Troponin I 0.015 Discharge Plan Discharge Plan Patient Disposition: Home Discharge comment: You were admitted to the hospital after a sudden change in vision, and an acute stroke was found on your CT scan. You were monitored for atrial fibrillation which we did not see, and you had no further deficits. Your started on apixaban over concern by your construction grip for atrial fibrillation. You will follow up with an catalogue maker today, and your construction grip as you of scheduled. Your construction grip will likely do a loop recorder to further monitor for atrial fibrillation. Hydralazine was stopped in favor of increased metoprolol, and your blood pressure on discharge was controlled. Your prescribed an increased dose of metoprolol to take at home. Occupational therapy evaluated you was an inpatient, and recommended outpatient OT, you can obtain this outside or I have placed a referral to one of the occupational therapist here. Discharge Med Rec/Prescriptions Prescriptions: New metoprolol succinate 50 mg tablet extended release 24 hr 50 mg PO DAILY 30 Days Qty: 30 RF: 0 Xarelto 20 mg tablet 20 mg PO .nightly 30 Days RF: 0 Continued venlafaxine 150 mg capsule,extended release 24hr 150 mg PO DAILY RF: 0 lovastatin 40 mg tablet 40 mg PO QPM RF: 0 aspirin [Adult Aspirin Regimen] 81 mg tablet,delayed release (DR/EC) 81 mg PO DAILY RF: 0 furosemide 40 mg tablet 40 mg PO DAILY RF: 0 venlafaxine 75 mg capsule,extended release 24hr 75 mg PO DAILY RF: 0 levothyroxine 50 mcg tablet 50 mcg PO DAILY RF: 0 potassium chloride 20 mEq tablet extended release 20 meq PO DAILY RF: 0 Discontinued metoprolol succinate 25 mg cap,sprinkle,ER 24hr dose pack 25 mg PO QPM RF: 0 hydralazine 50 mg tablet 150 mg PO BID RF: 0 Follow up/Referrals: Katie Heath, OT [Occupational Therapist] - (Loss of L lateral visual field, seen as inpatient OT) Adelina Watikns PA-C [Primary Care Provider] - Provider Discharge Instructions Diet: Diet as Tolerated Activity: As tolerated. Visit Report/Discharge Packet Instructions: DI for Heart Failure, Right-side Stroke, Rivaroxaban Visit Report Forms: Patient Portal/API, Stroke Signs & Symptoms Discharge Data Primary Care Provider: Adelina Watkins Discharges patient from system. Discharge Date/Time: 07/07/19 11:49
== END 2019-07-07 11:49 | disposition home or self-care (01) | DRG 65 ==
LOC: ED 19:26 → AC 20:06
PROVIDERS: Emergency Medicine; Admitting Provider Nurse Practitioner Family; Emergency Provider Emergency Medicine; Family Provider Internal Medicine Cardiovascular Disease; PCP Student in an Organized Health Care Education/Training Program; Visit Provider Nurse Practitioner Family
DX: I63.431 Cerebral infarction due to embolism of right posterior cerebral artery (principal); I50.22 Chronic systolic (congestive) heart failure; H53.47 Heteronymous bilateral field defects; E78.5 Hyperlipidemia, unspecified; Z95.3 Presence of xenogenic heart valve; R29.701 NIHSS score 1
CPT/HCPCS: 36415; 70450; 70496; 70498; 80048; 80053; 80061; 81003; 82962; 83735; 83880; 84443; 84484; 85025; 85610; 85730; 93005; 96360; 96361; 97165; 97530; 99283; 99285; G0378; Q9967

== ENCOUNTER → 2019-07-23 19:00 | Outpatient (ROUT) | payer MEDICARE, SELFPAY ==
[2019-07-05 21:48] VITALS: BMI 38.8
[2019-07-23 19:23] LABS: BUN Creatinine Ratio 20.8 (6-22); Blood Urea Nitrogen 27 mg/dL (7-17); Calcium 9.2 mg/dL (8.4-10.2); Carbon Dioxide 32 mmol/L (22-32); Chloride 103 mmol/L (98-107); Cholesterol 154 mg/dL (140-199); Glucose 110 mg/dL (80-110); HDL Cholesterol 63 mg/dL (40-60); HEMOLYSIS < 15 (0-50); LDL Cholesterol Calculated 68 mg/dL (<100); Potassium 3.7 mmol/L (3.4-5.1); Sodium 141 mmol/L (137-145); Triglycerides 113 mg/dL (35-150)
[2019-07-23 19:51] LABS: TSH w/ Reflex to FT4 0.71 uIU/mL (0.47-4.68)
== END ==
PROVIDERS: Family Provider Internal Medicine Cardiovascular Disease; PCP Student in an Organized Health Care Education/Training Program; Visit Provider Internal Medicine
DX: I10 Essential (primary) hypertension (principal); E78.00 Pure hypercholesterolemia, unspecified; E03.9 Hypothyroidism, unspecified
CPT/HCPCS: 80048; 80061; 84443

== ENCOUNTER → 2019-08-07 10:59 | Outpatient (CLI) | payer MEDICARE, SELFPAY ==
--- NOTE | 2019-08-07 11:07 | DIET.PN ---
Dietary Progress Note Assessment: 73y F dx c CHF with stroke has some left vision impairment from stroke in June, in second round of cardio rehab. Interested in food ideas to support health that aren't just chicken, turkey, and salad HT: 5 WT: 222# UBW: 150# in 30s-250# before surgery in February BMI: 36.9 Wt goal set today: 200# with BMI of 33.3, if she can reach this goal by spring, we can set new, lower goal. Nutrition Diagnosis: Food and nutrition knowledge deficit r/t foods to support cardiovascular health aeb pt recently dx c CHF and had stroke c visual impairment in 07/04, pt BMI 36.9. Usual intake: wakes 9:30am doesn't eat first thing in the morning L: sliced rotisserie chicken c salad sometimes chicken sandwich a little balderrama, onion, pepper D 630: chicken c vegetable (cauliflower, brussels sprouts) Sn: ice cream bar skinny cow, handful nuts unsalted peanuts or cashews, popcorn Drinks water only 9pm last snack, goes to bed midnight Prefers to do little cooking, used to and can sometimes, okay with prepwork for batch cooking. Pt has done a good job reducing sodium in her diet, has lost 20# since February. Interventions: Discussed frequency to eat beef and pork as pt is bored with chicken and turkey. Lean, uncured pork 2-3x/w and lean beef 1x or less per week ok. Per Pt request, we focused primarily on meal planning and ideas as follows with a focus on healthier versions of familiar foods, increasing soluble fiber, and increasing vegetables. Meal Ideas: Make ground chicken or turkey chili with carrots and double the low sodium beans meatloaf with ? ground beef and half ground chicken or turkey, adding aguilar peppers and onions. bake several sweet potatoes early in the week to eat during the week Make cabbage soup with lower sodium chicken or turkey sausages Add broccoli, carrots, onions, cabbage, tomatoes, cucumber, sweet potatoes, squash as much as possible wherever you can. Beef or pork roast (cutting off visible fat) once per month with lots of carrots, onions and potatoes even squash or sweet potatoes When you run out of Sunpreme, switch to [employer] Avocado Oil Sunpreme and only use a little Next time you are in [place], go to [employer] on [address] to see if you like it. Add more carrots and cantaloupe to your diet to support your eye health. Monitoring/Evaluations: f/u in January 2020 to assess diet, labs, wt loss progress, continuation of physical activity
== END ==
PROVIDERS: Family Provider Internal Medicine Cardiovascular Disease; PCP Internal Medicine; Visit Provider Student in an Organized Health Care Education/Training Program
DX: I50.9 Heart failure, unspecified (principal); E66.9 Obesity, unspecified; Z68.36 Body mass index [BMI] 36.0-36.9, adult; Z71.3 Dietary counseling and surveillance
CPT/HCPCS: 97802

== ENCOUNTER 2019-09-26 17:11 | Emergency (ER) | payer MEDICARE, SELFPAY ==
[2019-09-26 17:17] VITALS: TEMP 36.1
[2019-09-26 17:35] VITALS: BP 145/62; PULSE 63; RESP 18; TEMP 36.9; O2SAT 98
--- NOTE | 2019-09-26 17:37 | ED_ITS ---
HPI - Extremity Injury (Lower) General Chief Complaint: Extremity Injury, Lower Stated Complaint: dropped a knife on left foot, bleeding, on thinner Time Seen by Provider: 09/26/19 17:28 Source: patient and family Mode of arrival: Ambulatory Limitations: no limitations History of Present Illness HPI Narrative: 73-year-old female nonsmoker on Xarelto presents with family in the chief complaint of an accidental laceration on the dorsum of her left foot. She dropped a knife which poked her in the top of the foot and then caused bleeding. She is concerned because she is on a blood thinner. She had stopped prior to her arrival. She is not dizzy or weak or lightheaded. She denies any chest pain or shortness of breath. She is not having any other symptoms. MD complaint: foot injury Onset (ago): minute(s) Type of Injury: puncture wound Place: home Severity: mild Exacerbating factors: nothing Context: other Other symptoms: none Related Data Home Medications Medication Instructions Recorded Confirmed aspirin 81 mg tablet,delayed 81 mg PO DAILY 05/31/19 07/05/19 release furosemide 40 mg tablet 40 mg PO DAILY 05/31/19 07/05/19 lovastatin 40 mg tablet 40 mg PO QPM 05/31/19 07/05/19 venlafaxine 150 mg 150 mg PO DAILY 05/31/19 07/05/19 capsule,extended release 24 hr levothyroxine 50 mcg PO DAILY 06/23/19 07/05/19 potassium chloride 20 meq PO DAILY 06/23/19 07/05/19 venlafaxine 75 mg PO DAILY 06/23/19 07/05/19 Allergies Allergy/AdvReac Type Severity Reaction Status Date / Time No Known Drug Allergies Allergy Verified 06/23/19 13:09 Review of Systems Constitutional Constitutional: Denies chills, Denies fatigue, Denies fever(s), Denies frequent falls, Denies lethargy and Denies weakness Eyes Eyes: Denies change in vision, Denies eye discharge, Denies irritation and Denies loss of vision ENT Ears, Nose, Mouth, and Throat: Denies change in voice, Denies dizziness, Denies neck pain, Denies sore throat and Denies throat swelling Cardiovascular Cardiovascular: Denies chest pain, Denies irregular heart rhythm, Denies light headedness, Denies palpitations, Denies dyspnea, Denies dyspnea on exertion and Denies orthopnea Respiratory Respiratory: Denies cough, Denies dyspnea, Denies dyspnea on exertion and Denies wheezing Gastrointestinal Gastrointestinal: Denies abdominal pain, Denies change in bowel habits, Denies diarrhea, Denies nausea and Denies vomiting Genitourinary Genitourinary: Denies hematuria, Denies flank pain, Denies urinary incontinence and Denies urinary urgency Musculoskeletal Musculoskeletal: Denies back pain, Denies muscle weakness, Denies neck pain, Denies numbness and Denies tingling Integumentary/Breasts Skin/Breast: Denies pruritus, Denies erythema, Denies rash and Reports wounds Neurologic Neurologic: Denies behavioral changes, Denies confusion, Denies dizziness, Denies frequent falls, Denies loss of vision, Denies numbness, Denies tingling and Denies weakness Psychiatric Psychiatric: Denies anxiety, Denies behavioral changes, Denies confusion, Denies depression, Denies homicidal ideation and Denies suicidal ideation Endocrine Endocrine: Denies fatigue, Denies flushing and Denies palpitations Hematologic/Lymphatic Hematologic/Lymphatic: Denies easy bruising Allergic/Immunologic Allergic/Immunologic: Denies urticaria, Denies throat swelling and Denies wheezing Patient History Medical History Congestive heart failure (Inactive) Gout (Acute) Surgical History H/O mitral valve replacement (Chronic) Family History Mother Pancreatic cancer Father Diabetes mellitus Social History household members: spouse Smoking Status: Never smoker alcohol intake: current Smoking Status: Never smoker alcohol intake frequency: holidays/special occasions only Substance Use Type: does not use Exam Narrative Exam Narrative: GEN: AOx3 and in mild distress EYES: Pupils are equal, round, and reactive to light and accommodation. Extraoccular muscles are intact bilaterally. There is no subconjunctival hemorrhage or exudate. CHEST: Lungs are clear to auscultation bilaterally and free of wheezes, rales, or rhonchi. Heart rate is regular rhythm, there are no murmurs, clicks, rubs, or gallops. There is no chest wall tenderness. ABD: Abdomen is soft and nontender. There is no guarding or rebound. Bowel sounds are normal in all 4 quadrants. There is no mass or organomegaly. EXT: Small puncture wound on dorsum of left foot, clean, bleeding stopped prior to exam. Full painless ROM of all extremities with no loss of sensation or strength. SKIN: Warm, pink, and dry. No erythema or rash Initial Vital Signs Initial Vital Signs: Vital Signs Temperature 96.9 F L 09/26/19 17:17 Course Reevaluation(s) Reevaluation #1: no bleeding. Wound dressed with hemostatic gauze by nursing. Vital Signs Vital signs: Vital Signs - 8 hr 09/26/19 17:17 09/26/19 17:35 Temperature 96.9 F L 98.4 F Pulse Rate 63 Respiratory Rate 18 Blood Pressure [Right Arm] 145/62 H Pulse Oximetry 98 MDM - Extremity Injury (Lower) MDM Narrative Medical decision making narrative: Cut foot while on xarelto, no active bleeding after being wrapped in dressing with pressure. Dressing placed. Return precauti ons given. Questions answered. Discharge Plan Departure Patient Disposition: Home Clinical Impression: Laceration of skin of left foot Qualifiers: Encounter type: initial encounter Qualified Code(s): S91.312A - Laceration without foreign body, left foot, initial encounter Instructions: Minor Wounds (Alternative Therapy) Activity Restrictions/Additional Instructions: *You have been diagnosed with [small puncture type laceration to left foot] *What to do: *Continue to take medications as directed *Follow up with your primary care provider in 2-3 days, call for an appointment. Let them know you were seen in the Emergency Department and that we ask that you be seen in follow up *Return to ER if you should have any new, worsening or concerning symptoms Prescriptions: No Action venlafaxine 150 mg capsule,extended release 24hr 150 mg PO DAILY RF: 0 lovastatin 40 mg tablet 40 mg PO QPM RF: 0 aspirin [Adult Aspirin Regimen] 81 mg tablet,delayed release (DR/EC) 81 mg PO DAILY RF: 0 furosemide 40 mg tablet 40 mg PO DAILY RF: 0 venlafaxine 75 mg capsule,extended release 24hr 75 mg PO DAILY RF: 0 levothyroxine 50 mcg tablet 50 mcg PO DAILY RF: 0 potassium chloride 20 mEq tablet extended release 20 meq PO DAILY RF: 0 Referrals: Nichol Robles MD [Primary Care Provider] -
--- NOTE | 2019-09-26 17:59 | PC.NURSE ---
small lac to top of L foot from a knife that fell off counter. no bleeding at this time. dermabonded and pt tolerated well.
== END 2019-09-26 18:00 | disposition home or self-care (01) ==
PROVIDERS: Emergency Provider Emergency Medicine; Family Provider Internal Medicine Cardiovascular Disease; PCP Internal Medicine
DX: S91.312A Laceration without foreign body, left foot, initial encounter (principal); Z79.01 Long term (current) use of anticoagulants
CPT/HCPCS: 99281

== ENCOUNTER 2019-10-29 14:00 | Outpatient (RCR) | payer MEDICARE, SELFPAY | END 2019-11-11 08:20 | LOC: CAR 14:00 | PROVIDERS: PCP Student in an Organized Health Care Education/Training Program; Visit Provider Thoracic Surgery (Cardiothoracic Vascular Surgery) | DX: Z95.2 Presence of prosthetic heart valve (principal) | CPT/HCPCS: 93798 ==

== ENCOUNTER → 2020-01-29 12:01 | Outpatient (CLI) | payer MEDICARE, SELFPAY ==
--- NOTE | 2020-01-29 | DI.RAD.S_ITS ---
PROCEDURE: XR HIP W PEL IF DONE LT 2V INDICATIONS: Left hip pain/low back pain TECHNIQUE: 2 views of the hip were acquired. COMPARISON: [facility], CR, HIPBILAT 3TO4V W PEL IF PERFD, 08/29/2017, 16:06. FINDINGS: Bones: No fractures or dislocations but there is moderately severe left hip joint osteoarthritis and a slight degree of lesser osteophyte is at the right hip.. No suspicious bony lesions. The visualized pelvic ring appears intact. Soft tissues: No suspicious soft tissue calcifications or masses. IMPRESSION: No trauma found. Asymmetric left greater than right hip joint osteoarthritis, moderately severe to severe on the left. Dictated by: Jose Clay M.D. on 01/29/2020 at 12:39 Approved by: Jose Clay M.D. on 01/29/2020 at 12:42
--- NOTE | 2020-01-29 | DI.RAD.S_ITS ---
PROCEDURE: XR LUMBAR SPINE 2-3V INDICATIONS: Left hip pain/low back pain TECHNIQUE: 3 views of the lumbar spine were acquired. COMPARISON: None. FINDINGS: Bones: 5 [id number] vertebrae are present. There is mild levoscoliotic bony alignment, approximately 8? convex leftward centered at L3. No vertebral body compression fractures. No suspicious bony lesions. Degenerative disc disease is mild along the lumbosacral spine, and there is slight anterolisthesis of L5 on S1 associated with ligamentous laxity from degenerative facet osteoarthritis that is present most prominently at L4-5 and L5-S1. Soft tissues: Overlying bowel gas pattern is normal. No suspicious soft tissue calcifications. IMPRESSION: Multilevel degenerative disc disease and facet osteoarthritis but with only slight anterolisthesis of L5 on S1. Convex leftward scoliosis centered at L3 is mild. No compression fracture from. The findings discussed above certainly would predispose to spinal and foraminal stenosis and be a potential source of radiculopathy directed towards the hip. Dictated by: Jose Clay M.D. on 01/29/2020 at 12:42 Approved by: Jose Clay M.D. on 01/29/2020 at 12:52
== END ==
PROVIDERS: Family Provider Internal Medicine Cardiovascular Disease; PCP Family Medicine; Referring Provider Family Medicine; Visit Provider Family Medicine
DX: M54.5 Low back pain (principal); M25.552 Pain in left hip; M16.0 Bilateral primary osteoarthritis of hip; M51.36 Other intervertebral disc degeneration, lumbar region; M51.37 Other intervertebral disc degeneration, lumbosacral region; M47.816 Spondylosis without myelopathy or radiculopathy, lumbar region; M47.817 Spondylosis without myelopathy or radiculopathy, lumbosacral region
CPT/HCPCS: 72100; 73502

== ENCOUNTER → 2020-02-05 16:35 | Outpatient (CLI) | payer MEDICARE, SELFPAY | PROVIDERS: Family Provider Internal Medicine Cardiovascular Disease; PCP Family Medicine; Referring Provider Family Medicine; Visit Provider Family Medicine | DX: M25.559 Pain in unspecified hip (principal); Z53.9 Procedure and treatment not carried out, unspecified reason ==

== ENCOUNTER → 2020-02-18 13:34 | Outpatient (CLI) | payer MEDICARE, SELFPAY ==
--- NOTE | 2020-02-18 | DI.MRI.S_ITS ---
PROCEDURE: MR LUMBAR SPINE WO CON INDICATIONS: Lumbar Radiculopathy TECHNIQUE: Noncontrast sagittal T1 spin echo and T2 fast echo, sagittal STIR, axial T1 and T2 fast spin echo through the lumbar spine. In cases with scoliosis, additional coronal T2 fast spin echo may be performed. COMPARISON: [facility], CR, XR LUMBAR SPINE 2-3V, 01/29/2020, 12:11. FINDINGS: Image quality: Excellent. Alignment and Curvature: There is normal bony alignment. Bone Marrow: Marrow is of normal overall signal. No acute vertebral body compression fractures. Spinal Cord: Conus medullaris terminates at the L2 level. Visualized cord demonstrates normal signal and size. Paraspinous Soft Tissues: No paravertebral masses. T11-T12: No canal stenosis or foraminal stenosis. T12-L1: Minimal disc bulge. Mild facet hypertrophy. No canal stenosis. Mild left foraminal stenosis. L1-L2: Mild disc bulge. Facet hypertrophy. No canal stenosis or significant foraminal stenosis. L2-L3: Disc bulge. Facet and ligament hypertrophy. Epidural lipomatosis. Canal stenosis is at least moderate, underestimated by axial plane. Mild to moderate bilateral foraminal stenosis. L3-L4: Disc bulge. Prominent facet and ligament hypertrophy. Moderate canal stenosis. Moderate right foraminal narrowing with flattening deformity on the exiting right L3 nerve root. Mild to moderate left foraminal narrowing. L4-L5: Disc bulge. Prominent facet and ligament hypertrophy. Moderate canal stenosis. Mild to moderate bilateral foraminal narrowing. L5-S1: Minimal disc bulge. Prominent facet and ligament hypertrophy. Mild canal stenosis. Mild bilateral foraminal stenosis. IMPRESSION: 1. Canal stenosis is moderate at L2-L3 through L4-L5 and mild at L5-S1. 2. Multilevel foraminal narrowing as described above. 3. Multilevel facet arthropathy. Dictated by: Huey Pryor M.D. on 02/18/2020 at 16:03 Approved by: Huey Pryor M.D. on 02/18/2020 at 16:10
== END ==
PROVIDERS: Family Provider Internal Medicine Cardiovascular Disease; PCP Family Medicine; Referring Provider Family Medicine; Visit Provider Family Medicine
DX: M47.26 Other spondylosis with radiculopathy, lumbar region (principal); M48.061 Spinal stenosis, lumbar region without neurogenic claudication; M48.07 Spinal stenosis, lumbosacral region
CPT/HCPCS: 72148

== ENCOUNTER → 2020-03-22 16:33 | Outpatient (CLI) | payer MEDICARE, SELFPAY ==
--- NOTE | 2020-03-22 16:37 | DI.RAD.S_ITS ---
PROCEDURE: XR SHOULDER LT MIN 2V INDICATIONS: LEFT SHOULDER PAIN TECHNIQUE: 3 views of the shoulder were acquired. COMPARISON: [facility], CR, XR SHOULDER RT MIN 2V, 10/27/2018, 14:49. FINDINGS: Bones: No fractures or dislocations. No suspicious bony lesions. Visualized ribs appear intact. Soft tissues: No suspicious soft tissue calcifications. IMPRESSION: Mild a.c. joint osteoarthritis, no trauma found. Dictated by: Jose Clay M.D. on 03/22/2020 at 17:01 Approved by: Jose Clay M.D. on 03/22/2020 at 17:01
== END ==
PROVIDERS: Family Provider Internal Medicine Cardiovascular Disease; PCP Family Medicine; Referring Provider Family Medicine; Visit Provider Family Medicine
DX: M25.512 Pain in left shoulder (principal); M19.012 Primary osteoarthritis, left shoulder
CPT/HCPCS: 73030

== ENCOUNTER → 2020-09-06 15:46 | Outpatient (CLI) | payer MEDICARE, SELFPAY ==
--- NOTE | 2020-09-06 | DI.RAD.S_ITS ---
PROCEDURE: XR CHEST 2V INDICATIONS: DYSPNEA ON EXERTION TECHNIQUE: 2 views of the chest were acquired. COMPARISON: [facility], CR, XR CHEST 2V, 06/23/2019, 13:08. FINDINGS: Surgical changes and devices: Sternal wires. Lungs and pleura: Lungs are clear. No pleural effusions or pneumothorax. Mediastinum: Mediastinal contours are normal. Heart size is not enlarged. Bones and chest wall: No suspicious bony abnormalities. Soft tissues appear unremarkable. IMPRESSION: No acute pulmonary process. Dictated by: Sarah Al M.D. on 09/06/2020 at 16:55 Approved by: Sarah Al M.D. on 09/06/2020 at 16:55
== END ==
PROVIDERS: Family Provider Internal Medicine Cardiovascular Disease; PCP Family Medicine; Referring Provider Family Medicine; Visit Provider Family Medicine
DX: R06.09 Other forms of dyspnea (principal); R06.00 Dyspnea, unspecified
CPT/HCPCS: 71046

== ENCOUNTER 2020-10-07 18:45 | Emergency (ER) | payer MEDICARE, SELFPAY ==
[2020-10-07 18:51] VITALS: BP 162/77; PULSE 73; RESP 16; TEMP 36.7; O2SAT 97; BMI 39.1
--- NOTE | 2020-10-07 20:26 | ED.GIBLEED ---
HPI - GI Bleed General Chief complaint: Nasal Problem Stated complaint: NOSE BLEED AND RECTAL BLEEDING Time Seen by Provider: 10/07/20 20:12 Source: patient and family Mode of arrival: Family Vehicle History of Present Illness HPI Narrative: Patient here with sister. Complains of right naris epistaxis with rectal bleeding today. Had 1 episode blood on stool at 6:00 p.m. today. None since then. Had intermittent right knee nose epistaxis. Starting today. None now. No dizziness palpitations no dyspnea. No chest pain abdominal pain. Patient is on Xarelto for heart valve placed years ago and continues today as she has recently heart stent within the last 3 weeks at [facility] by her telecommunication operator. Patient was placed on baby aspirin with a stent. No dizziness. No syncope. Related Data Home Medications Medication Instructions Recorded Confirmed furosemide 40 mg tablet 40 mg PO DAILY 05/31/19 04/11/20 lovastatin 40 mg tablet 40 mg PO QPM 05/31/19 04/11/20 venlafaxine 150 mg 150 mg PO DAILY 05/31/19 04/11/20 capsule,extended release 24 hr levothyroxine 50 mcg PO DAILY 06/23/19 04/11/20 potassium chloride 20 meq PO DAILY 06/23/19 04/11/20 venlafaxine 75 mg PO DAILY 06/23/19 04/11/20 lisinopril 10 mg tablet 10 mg PO BID 04/11/20 04/11/20 metoprolol succinate 50 mg capsule 50 mg PO DAILY 04/11/20 04/11/20 sprinkle, ext. release 24 hr rivaroxaban 15 mg tablet 15 mg PO DAILY 04/11/20 04/11/20 Allergies Allergy/AdvReac Type Severity Reaction Status Date / Time No Known Drug Allergies Allergy Verified 04/11/20 14:34 Review of Systems Review of Systems Narrative: GENERAL: Denies chills, fatigue, malaise, fever, sweats. HEENT: Denies sinus pain, ear pain, sore throat, difficulty swallowing, complains epistaxis RESPIRATORY: Denies dyspnea, cough CARDIOVASCULAR: Denies chest pain, palpitations, edema, GASTROINTESTINAL: Denies nausea, vomiting, abdominal pain, diarrhea, constipation, complains melena. : Denies dysuria, frequency, hematuria MUSCULOSKELETAL: denies muscle or bony pain SKIN: Denies rash, skin lesions NEUROLOGIC: Denies weakness, headache, numbness, change in speech, confusion PSYCHIATRIC: No SI or HI or hallucinations ROS Unobtainable: All systems reviewed & are unremarkable except as noted in HPI and below Patient History Medical History Congestive heart failure Degenerative joint disease (DJD) of hip Facet arthropathy, lumbar Gout Lumbosacral spondylosis with radiculopathy Surgical History H/O mitral valve replacement Family History Mother Pancreatic cancer Father Diabetes mellitus Social History household members: spouse Smoking Status: Never smoker alcohol intake: current Smoking Status: Never smoker alcohol intake frequency: holidays/special occasions only Substance Use Type: does not use Exam Narrative Exam Narrative: GENERAL: patient appears stated age. Well-nourished, well-developed patient, in no distress, not toxic not dyspneic HEAD: Normocephalic. EYES: Pupils equal round and reactive. No scleral icterus. No injection no discharge ENT: Mucous membranes moist. No drooling no tongue elevation no trismus no malocclusion, dried blood right naris and medial wall anteriorly. No blood in posterior pharynx. No active bleeding. NECK: Trachea midline. Non tender CARDIOVASCULAR: Regular rate and rhythm without murmurs, gallops, or rubs. RESPIRATORY: Clear to auscultation. Breath sounds equal bilaterally. No wheezes, rales, or rhonchi. GASTROINTESTINAL: Abdomen soft, non-tender, nondistended. Nurse Naty at bedside to hand candle dipper. There is black stool on glove. Hemoccult positive. No hematochezia. EXTREMITIES: No gross deformities. BACK: Nontender without deformity or crepitance. No flank tenderness. NEURO: AOx4. SKIN: Warm and dry PSYCH: Not anxious, is cooperative Initial Vital Signs Initial Vital Signs: Vital Signs Temperature 98.1 F 10/07/20 18:51 Pulse Rate 73 10/07/20 18:51 Respiratory Rate 16 10/07/20 18:51 Blood Pressure 162/77 H 01/22/21 18:51 Pulse Oximetry 97 10/07/20 18:51 Course Course Course Narrative: No external bleeding at this time. During course of stay. Orders Ordered: ED Orders 10/07/20 20:26 COVID19 Stat 10/07/20 20:50 Complete Blood Count AUTO DIFF Stat Comprehensive Metabolic Panel Stat Partial Thromboplastin Time Stat Prothrombin Time INR Stat Reevaluation(s) Reevaluation #1: Reviewed results with patient and family as well as discussions with her providers and they agree for transfer to [facility]. Time: 22:01 Consultations Consultation #1: Spoke with patient's telecommunication operator dr gomez, patient is only to take Plavix and Xarelto. She has been taking aspirin which she is not supposed to be. He desires patient to be sent to [facility]. Hospitalist admit. Time: 20:33 Consultation #2: Spoke with Dr. roy, hospitalist at [facility], will accept patient. Time: 21:21 Consultation #3: Spoke with [facility] gastroenterology Dr. Remigio sheldon, he will see patient in the morning Time: 21:44 Vital Signs Vital signs: Vital Signs - 8 hr 10/07/20 18:51 10/07/20 21:17 10/07/20 21:18 Temperature 98.1 F Pulse Rate 73 74 72 Respiratory Rate 16 24 19 Blood Pressure 162/77 H 155/71 H Pulse Oximetry 97 100 10/07/20 21:30 Temperature Pulse Rate 63 Respiratory Rate 20 Blood Pressure Pulse Oximetry 99 MDM - GI Bleed Differential Diagnosis Differential diagnosis: Likely hemorrhoids, gastritis, Lower gastrointestinal hemorrhage, hematochezia, melena and other (Coagulopathy) Lab Data Attestation: I reviewed the patient's lab results. Result diagrams: 10/07/20 20:50 10/07/20 20:50 Labs: Lab Results 10/07/20 10/07/20 10/07/20 Range/Units 20:26 20:50 20:50 WBC 10.1 (4.5-11.0) X10^3/uL RBC 3.95 L (4.0-5.2) X10^6/uL Hgb 12.4 (12.0-16.0) g/dL Hct 37.5 (36-46) % MCV 95.0 (80-100) fL MCH 31.3 (26-34) PG MCHC 32.9 (30-36) % RDW 14.7 (11.6-14.8) % Plt Count 237 (150-400) X10^3/uL Neut % (Auto) 64.9 (50-75) % Lymph % (Auto) 24.8 L (25-40) % Faulk % (Auto) 7.3 (3-14) % Eos % (Auto) 1.9 L (2-4) % Baso % (Auto) 1.1 (0-2) % Neut # (Auto) 6600 (5110-5820) /uL Lymph # (Auto) 2500 (6906-8115) /uL Faulk # (Auto) 700 (0-900) /uL Eos # (Auto) 200 (0-450) /uL Baso # (Auto) 100 (0-100) /uL PT 20.7 H (10.1-12.7) SECONDS INR 1.8 H (0.9-1.3) APTT 36 D (26.4-36.2) SECONDS Sodium (137-145) mmol/L Potassium (3.4-5.1) mmol/L Chloride (98-107) mmol/L Carbon Dioxide (22-32) mmol/L BUN (7-17) mg/dL Creatinine (0.52-1.04) mg/dL Estimated GFR (>60) mL/min BUN/Creatinine Ratio (6-22) Glucose (80-110) mg/dL Calcium (8.4-10.2) mg/dL Total Bilirubin (0.2-1.3) mg/dL AST (14-36) IU/L ALT (<35) IU/L Alkaline Phosphatase (38-126) U/L Total Protein (6.3-8.2) g/dL Albumin (3.5-5.0) g/dL Globulin (1.7-4.1) g/dL Albumin/Globulin Ratio (1.0-2.8) SARS-CoV-2 (PCR) Negative (Negative) 10/07/20 Range/Units 20:50 WBC (4.5-11.0) X10^3/uL RBC (4.0-5.2) X10^6/uL Hgb (12.0-16.0) g/dL Hct (36-46) % MCV (80-100) fL MCH (26-34) PG MCHC (30-36) % RDW (11.6-14.8) % Plt Count (150-400) X10^3/uL Neut % (Auto) (50-75) % Lymph % (Auto) (25-40) % Faulk % (Auto) (3-14) % Eos % (Auto) (2-4) % Baso % (Auto) (0-2) % Neut # (Auto) (5366-6468) /uL Lymph # (Auto) (0671-1970) /uL Faulk # (Auto) (0-900) /uL Eos # (Auto) (0-450) /uL Baso # (Auto) (0-100) /uL PT (10.1-12.7) SECONDS INR (0.9-1.3) APTT (26.4-36.2) SECONDS Sodium 138 (137-145) mmol/L Potassium 4.2 (3.4-5.1) mmol/L Chloride 104 (98-107) mmol/L Carbon Dioxide 32 (22-32) mmol/L BUN 30 H (7-17) mg/dL Creatinine 1.25 H (0.52-1.04) mg/dL Estimated GFR 41.7 L (>60) mL/min BUN/Creatinine Ratio 24.0 H (6-22) Glucose 89 (80-110) mg/dL Calcium 8.6 (8.4-10.2) mg/dL Total Bilirubin 0.4 (0.2-1.3) mg/dL AST 32 (14-36) IU/L ALT 21 (<35) IU/L Alkaline Phosphatase 81 (38-126) U/L Total Protein 6.8 (6.3-8.2) g/dL Albumin 4.0 (3.5-5.0) g/dL Globulin 2.8 (1.7-4.1) g/dL Albumin/Globulin Ratio 1.4 (1.0-2.8) SARS-CoV-2 (PCR) (Negative) MDM Narrative Medical decision making narrative: No imaging indicated this time. There is no no no abdominal pain or chest pain. No rhino rocket indicated this time. There is hemostasis for the epistaxis. Discharge Plan Departure Patient Disposition: [facility] Clinical Impression: Acute GI bleeding, Acute anterior epistaxis Prescriptions: No Action venlafaxine 150 mg capsule,extended release 24hr 150 mg PO DAILY RF: 0 lovastatin 40 mg tablet 40 mg PO QPM RF: 0 furosemide 40 mg tablet 40 mg PO DAILY RF: 0 venlafaxine 75 mg capsule,extended release 24hr 75 mg PO DAILY RF: 0 levothyroxine 50 mcg tablet 50 mcg PO DAILY RF: 0 potassium chloride 20 mEq tablet extended release 20 meq PO DAILY RF: 0 metoprolol succinate 50 mg capsule,sprinkle,ER 24hr 50 mg PO DAILY RF: 0 lisinopril 10 mg tablet 10 mg PO BID RF: 0 Xarelto 15 mg tablet 15 mg PO DAILY RF: 0 Referrals: Kadie Yuan MD [Primary Care Provider] -
[2020-10-07 20:50] LABS: COVID19 -Nasal RAPID Negative (Negative)
[2020-10-07 21:04] LABS: Add Manual Diff / Slide Review NO; Basophils Absolute Auto 100 /uL (0-100); Basophils Percent Auto 1.1 % (0-2); Eosinophils Absolute Auto 200 /uL (0-450); Eosinophils Percent Auto 1.9 % (2-4); Hematocrit 37.5 % (36-46); Hemoglobin 12.4 g/dL (12.0-16.0); Lymphocytes Absolute Auto 2500 /uL (1100-4500); Lymphocytes Percent Auto 24.8 % (25-40); Mean Corpuscular HGB Conc 32.9 % (30-36); Mean Corpuscular Hemoglobin 31.3 PG (26-34); Monocytes Absolute Auto 700 /uL (0-900); Monocytes Percent Auto 7.3 % (3-14); Neutrophils Absolute Auto 6600 /uL (1500-7000); Neutrophils Percent Auto 64.9 % (50-75); Platelet Count 237 X10^3/uL (150-400); Red Blood Cell Count 3.95 X10^6/uL (4.0-5.2); Red Cell Distribution Width 14.7 % (11.6-14.8); White Blood Cell Count 10.1 X10^3/uL (4.5-11.0)
[2020-10-07 21:11] LABS: INR 1.8 (0.9-1.3); Prothrombin Time 20.7 SECONDS (10.1-12.7)
[2020-10-07 21:14] LABS: PTT Partial Thromboplastin Tim 36 SECONDS (26.4-36.2)
[2020-10-07 21:16] LABS: Alanine Aminotransferase 21 IU/L (<35); Albumin Globulin Ratio 1.4 (1.0-2.8); Alkaline Phosphatase 81 U/L (38-126); Aspartate Aminotransferase 32 IU/L (14-36); Bilirubin Total 0.4 mg/dL (0.2-1.3); Blood Urea Nitrogen 30 mg/dL (7-17); Calcium 8.6 mg/dL (8.4-10.2); Carbon Dioxide 32 mmol/L (22-32); Chloride 104 mmol/L (98-107); Estimated Glomerular Filt Rate 41.7 mL/min (>60); Globulin 2.8 g/dL (1.7-4.1); Glucose 89 mg/dL (80-110); HEMOLYSIS < 15 (0-50); Potassium 4.2 mmol/L (3.4-5.1); Sodium 138 mmol/L (137-145); Total Protein 6.8 g/dL (6.3-8.2)
[2020-10-07 21:17] VITALS: PULSE 74; RESP 24
[2020-10-07 21:18] VITALS: BP 155/71; PULSE 72; RESP 19; O2SAT 100
[2020-10-07 21:30] VITALS: PULSE 63; RESP 20; O2SAT 99
== END 2020-10-07 22:15 | disposition short-term general hospital (02) ==
PROVIDERS: Emergency Provider Emergency Medicine; Family Provider Internal Medicine Cardiovascular Disease; PCP Family Medicine
DX: R04.0 Epistaxis (principal); K92.2 Gastrointestinal hemorrhage, unspecified; Z95.2 Presence of prosthetic heart valve; Z79.82 Long term (current) use of aspirin; I50.9 Heart failure, unspecified; I10 Essential (primary) hypertension; Z20.822 Contact with and (suspected) exposure to COVID-19
CPT/HCPCS: 36415; 80053; 85025; 85610; 85730; 87635; 99283; C9803

== ENCOUNTER 2020-10-11 06:50 | Emergency (ER) | payer MEDICARE, SELFPAY ==
[2020-10-11 07:02] VITALS: BP 201/90; PULSE 89; RESP 22; O2SAT 93; BMI 39.1
--- NOTE | 2020-10-11 07:14 | ED_ITS ---
HPI - Epistaxis General Chief complaint: Nasal Problem Stated complaint: Bloody nose Time Seen by Provider: 10/11/20 06:56 Source: patient Mode of arrival: Ambulatory Limitations: no limitations History of Present Illness HPI Narrative: Patient is a 75-year-old female with history of cardiac valve replaced can not recent stent placed and on Plavix and Xarelto and most recently a GI bleed on October 07 presenting today with epistaxis. She says that she was released from [facility] yesterday after she was transferred there for GI bleeding. She was restarted on Plavix and Xarelto, she said last night she started having nosebleed. It is currently stopped, she has a blood clot in the right nares. She does is not dripping down her throat. It was easily stopped with tissue paper in the right nostril. MD complaint: epistaxis Location: right nostril Related Data Home Medications Medication Instructions Recorded Confirmed furosemide 40 mg tablet 40 mg PO DAILY 05/31/19 04/11/20 lovastatin 40 mg tablet 40 mg PO QPM 05/31/19 04/11/20 venlafaxine 150 mg 150 mg PO DAILY 05/31/19 04/11/20 capsule,extended release 24 hr levothyroxine 50 mcg PO DAILY 06/23/19 04/11/20 potassium chloride 20 meq PO DAILY 06/23/19 04/11/20 venlafaxine 75 mg PO DAILY 06/23/19 04/11/20 lisinopril 10 mg tablet 10 mg PO BID 04/11/20 04/11/20 metoprolol succinate 50 mg capsule 50 mg PO DAILY 04/11/20 04/11/20 sprinkle, ext. release 24 hr rivaroxaban 15 mg tablet 15 mg PO DAILY 04/11/20 04/11/20 Allergies Allergy/AdvReac Type Severity Reaction Status Date / Time No Known Drug Allergies Allergy Verified 04/11/20 14:34 Review of Systems Review of Systems Narrative: GENERAL: Denies chills,fever HEENT: See HPI Denies throat pain RESPIRATORY: Denies dyspnea, cough, wheezing CARDIOVASCULAR: Denies chest pain, palpitations GASTROINTESTINAL: Denies nausea, vomiting MUSCULOSKELETAL: Denies extremity pain, injury SKIN: No rash, no laceration, no pruritus NEUROLOGIC: Denies weakness, dizziness, headache, numbness 8 point review of systems is negative except for those stated above and HPI Patient History Medical History Congestive heart failure Degenerative joint disease (DJD) of hip Facet arthropathy, lumbar Gout Lumbosacral spondylosis with radiculopathy Surgical History H/O mitral valve replacement Family History Mother Pancreatic cancer Father Diabetes mellitus Social History household members: spouse Smoking Status: Never smoker alcohol intake: current Smoking Status: Never smoker alcohol intake frequency: holidays/special occasions only Substance Use Type: does not use Exam Initial Vital Signs Initial Vital Signs: Vital Signs Pulse Rate 89 10/11/20 07:02 Respiratory Rate 22 10/11/20 07:02 Blood Pressure 201/90 H 10/11/20 07:02 Pulse Oximetry 93 10/11/20 07:02 GENERAL: Alert 75-year-old, no acute distress NOSE: Right nostril blood clot present no active bleeding no blood in the pharynx CARDIOVASCULAR: peripheral pulses in tact, cap refill <2 sec RESPIRATORY: No respiratory distress, speaks in full sentences without difficulty EXTREMITIES: Normal range of motion, no clubbing or edema. Neurovascularly intact NEUROLOGICAL: Cranial nerves II through XII grossly intact. Normal gait and speech. SKIN: Warm, dry, no petechiae, no rashes or lesions. Course Vital Signs Vital signs: Vital Signs - 8 hr 10/11/20 07:02 Pulse Rate 89 Respiratory Rate 22 Blood Pressure 201/90 H Pulse Oximetry 93 MDM - Epistaxis MDM Narrative Medical decision making narrative: Blood clot noted but no actual active bleed appreciated. She apparently was on aspirin Plavix and Xarelto she was not supposed to be taking aspirin she says she has had is no longer taking the aspirin. Blood pressure is noted to be elevated she is supposed to be taking lisinopril twice a day but has only been taking in the morning. She is given a nasal clip and instructions on how to use it. Discharge Plan Departure Patient Disposition: Home Clinical Impression: Anterior epistaxis Instructions: DI for Nosebleed Activity Restrictions/Additional Instructions: *You have been diagnosed with nose bleed *What to do: Use nose clamp tilted forward splint. You may use 1 or 2 squirts of Afrin of the nose as well to help stop bleeding and needed. At this time I recommend to continue her Plavix and Xarelto. *Continue to take medications as directed *Follow up with your primary care provider in 2-3 days *Return to ER if you should have persistent nose bleeding for more than 60 minutes despite nose clamp and Afrin, or any new, worsening or concerning symptoms Prescriptions: No Action venlafaxine 150 mg capsule,extended release 24hr 150 mg PO DAILY RF: 0 lovastatin 40 mg tablet 40 mg PO QPM RF: 0 furosemide 40 mg tablet 40 mg PO DAILY RF: 0 venlafaxine 75 mg capsule,extended release 24hr 75 mg PO DAILY RF: 0 levothyroxine 50 mcg tablet 50 mcg PO DAILY RF: 0 potassium chloride 20 mEq tablet extended release 20 meq PO DAILY RF: 0 metoprolol succinate 50 mg capsule,sprinkle,ER 24hr 50 mg PO DAILY RF: 0 lisinopril 10 mg tablet 10 mg PO BID RF: 0 Xarelto 15 mg tablet 15 mg PO DAILY RF: 0 Referrals: Kadie Yuan MD [Primary Care Provider] -
[2020-10-11 08:17] VITALS: BP 186/84; PULSE 80; RESP 18; O2SAT 97
== END 2020-10-11 08:17 | disposition home or self-care (01) ==
PROVIDERS: Emergency Provider Emergency Medicine; Family Provider Internal Medicine Cardiovascular Disease; PCP Family Medicine
DX: R04.0 Epistaxis (principal); I50.9 Heart failure, unspecified; Z95.2 Presence of prosthetic heart valve; Z79.01 Long term (current) use of anticoagulants
CPT/HCPCS: 99281

== ENCOUNTER → 2020-11-01 12:53 | Outpatient (CLI) | payer MEDICARE, SELFPAY ==
[2020-11-01 14:49] LABS: Add Manual Diff / Slide Review NO; Basophils Absolute Auto 100 /uL (0-100); Basophils Percent Auto 1.2 % (0-2); Eosinophils Absolute Auto 200 /uL (0-450); Hematocrit 38.4 % (36-46); Hemoglobin 12.8 g/dL (12.0-16.0); Lymphocytes Absolute Auto 2500 /uL (1100-4500); Lymphocytes Percent Auto 32.5 % (25-40); Mean Corpuscular HGB Conc 33.3 % (30-36); Mean Corpuscular Hemoglobin 31.1 PG (26-34); Mean Corpuscular Volume 93.2 fL (80-100); Monocytes Absolute Auto 500 /uL (0-900); Monocytes Percent Auto 6.7 % (3-14); Neutrophils Absolute Auto 4400 /uL (1500-7000); Neutrophils Percent Auto 57.6 % (50-75); Platelet Count 255 X10^3/uL (150-400); Red Blood Cell Count 4.12 X10^6/uL (4.0-5.2); Red Cell Distribution Width 14.4 % (11.6-14.8); White Blood Cell Count 7.6 X10^3/uL (4.5-11.0)
[2020-11-01 15:03] LABS: Alanine Aminotransferase 21 IU/L (<35); Albumin 4.2 g/dL (3.5-5.0); Albumin Globulin Ratio 1.4 (1.0-2.8); Alkaline Phosphatase 91 U/L (38-126); Aspartate Aminotransferase 29 IU/L (14-36); BUN Creatinine Ratio 19.2 (6-22); Bilirubin Total 0.5 mg/dL (0.2-1.3); Blood Urea Nitrogen 25 mg/dL (7-17); Calcium 9.2 mg/dL (8.4-10.2); Carbon Dioxide 30 mmol/L (22-32); Chloride 103 mmol/L (98-107); Cholesterol 193 mg/dL (140-199); Estimated Glomerular Filt Rate 39.8 mL/min (>60); Glucose 145 mg/dL (80-110); HDL Cholesterol 55 mg/dL (40-60); HEMOLYSIS < 15 (0-50); LDL Cholesterol Calculated 110 mg/dL (<100); Potassium 4.2 mmol/L (3.4-5.1); Sodium 138 mmol/L (137-145); Total Protein 7.2 g/dL (6.3-8.2); Triglycerides 140 mg/dL (35-150)
[2020-11-01 15:13] LABS: NT-proBNP (BNP-Adult 18+) 2060 pg/mL (<450)
[2020-11-01 16:15] LABS: Thyroid Stimulating Hormone 0.496 uIU/mL (0.47-4.68)
== END ==
PROVIDERS: Family Provider Internal Medicine Cardiovascular Disease; PCP Family Medicine; Referring Provider Internal Medicine Cardiovascular Disease; Visit Provider Internal Medicine Cardiovascular Disease
DX: Z79.899 Other long term (current) drug therapy (principal); I66.9 Occlusion and stenosis of unspecified cerebral artery; I34.0 Nonrheumatic mitral (valve) insufficiency; I42.9 Cardiomyopathy, unspecified; Z71.2 Person consulting for explanation of examination or test findings; Z98.61 Coronary angioplasty status; I50.22 Chronic systolic (congestive) heart failure
CPT/HCPCS: 36415; 80053; 80061; 83880; 84443; 85025

== ENCOUNTER → 2021-03-22 12:10 | Outpatient (CLI) | payer MEDICARE, SELFPAY ==
[2021-03-22 14:21] LABS: BUN Creatinine Ratio 15.7 (6-22); Blood Urea Nitrogen 17 mg/dL (7-17); Carbon Dioxide 26 mmol/L (22-32); Chloride 108 mmol/L (98-107); Estimated Glomerular Filt Rate 49.3 mL/min (>60); Glucose 130 mg/dL (80-110); HEMOLYSIS < 15 (0-50); Potassium 4.6 mmol/L (3.4-5.1); Sodium 141 mmol/L (137-145)
[2021-03-22 14:26] LABS: NT-proBNP (BNP-Adult 18+) 1580 pg/mL (<450)
== END ==
PROVIDERS: Family Provider Internal Medicine Cardiovascular Disease; PCP Family Medicine; Referring Provider Internal Medicine Cardiovascular Disease; Visit Provider Internal Medicine Cardiovascular Disease
DX: Z79.899 Other long term (current) drug therapy (principal); I42.9 Cardiomyopathy, unspecified; I63.9 Cerebral infarction, unspecified; E66.9 Obesity, unspecified; E78.5 Hyperlipidemia, unspecified
CPT/HCPCS: 36415; 80048; 83735; 83880

== ENCOUNTER → 2021-06-28 15:15 | Outpatient (CLI) | payer MEDICARE, SELFPAY ==
[2021-06-28 15:50] LABS: Add Manual Diff / Slide Review NO; Basophils Absolute Auto 100 /uL (0-100); Basophils Percent Auto 0.9 % (0-2); Eosinophils Absolute Auto 300 /uL (0-450); Eosinophils Percent Auto 3.1 % (2-4); Hematocrit 45.6 % (36-46); Hemoglobin 14.9 g/dL (12.0-16.0); Lymphocytes Absolute Auto 3600 /uL (1100-4500); Lymphocytes Percent Auto 39.4 % (25-40); Mean Corpuscular HGB Conc 32.7 % (30-36); Mean Corpuscular Volume 94.8 fL (80-100); Monocytes Absolute Auto 600 /uL (0-900); Monocytes Percent Auto 6.1 % (3-14); Neutrophils Absolute Auto 4600 /uL (1500-7000); Neutrophils Percent Auto 50.5 % (50-75); Platelet Count 224 X10^3/uL (150-400); Red Blood Cell Count 4.81 X10^6/uL (4.0-5.2); Red Cell Distribution Width 14.5 % (11.6-14.8); White Blood Cell Count 9.2 X10^3/uL (4.5-11.0)
[2021-06-28 16:09] LABS: Blood Urea Nitrogen 16 mg/dL (7-17); Calcium 9.4 mg/dL (8.4-10.2); Carbon Dioxide 28 mmol/L (22-32); Chloride 106 mmol/L (98-107); Cholesterol 161 mg/dL (140-199); Estimated Glomerular Filt Rate 46.3 mL/min (>60); Glucose 115 mg/dL (80-110); HDL Cholesterol 65 mg/dL (40-60); HEMOLYSIS < 15 (0-50); LDL Cholesterol Calculated 72 mg/dL (<100); Potassium 4.5 mmol/L (3.4-5.1); Sodium 142 mmol/L (137-145); Triglycerides 120 mg/dL (35-150)
[2021-06-28 16:19] LABS: NT-proBNP (BNP-Adult 18+) 1060 pg/mL (<450)
== END ==
PROVIDERS: Family Provider Internal Medicine Cardiovascular Disease; PCP Family Medicine; Referring Provider Internal Medicine Cardiovascular Disease; Visit Provider Internal Medicine Cardiovascular Disease
DX: I42.9 Cardiomyopathy, unspecified (principal)
CPT/HCPCS: 36415; 80048; 80061; 83880; 84443; 85025

== ENCOUNTER → 2021-08-03 13:11 | Outpatient (CLI) | payer MEDICARE, SELFPAY ==
--- NOTE | 2021-08-03 | DI.US.S_ITS ---
PROCEDURE: US PERIPH VENOUS LOW EXTREM RT INDICATIONS: RIGHT LEG PAIN AND SWELLING TECHNIQUE: Real-time imaging, as well as color and pulse Doppler interrogation, were performed of the lower extremity deep veins from the inguinal ligament to the popliteal fossa. COMPARISON: None. FINDINGS: The common femoral, femoral and popliteal veins are normally compressible, and free of intraluminal thrombus. Color and pulse Doppler demonstrate normal phasic intraluminal flow. There is normal augmentation response to distal compression maneuver. Posterior medial popliteal fossa fluid collection measuring 5.0 x 1.8 x 3.6 cm. IMPRESSION: 1. No deep venous thrombosis identified within the right lower extremity. 2. 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 Dictated by: Osvaldo Balderas [facility] Interpreted: Beny Burdick MD on 08/03/2021 at 14:28 Approved by: Beny Burdick M.D. on 08/03/2021 at 16:10
== END ==
PROVIDERS: Family Provider Internal Medicine Cardiovascular Disease; PCP Family Medicine; Referring Provider Family Medicine; Visit Provider Family Medicine
DX: M79.604 Pain in right leg; M79.89 Other specified soft tissue disorders; M71.21 Synovial cyst of popliteal space [Baker], right knee
CPT/HCPCS: 93971

== ENCOUNTER 2022-07-27 18:16 | Emergency (ER) | payer MEDICARE, SELFPAY ==
[2022-07-27] VITALS (14 sets, daily range): BP systolic 97–121; BP diastolic 51–75; PULSE 59–83; RESP 18–35; TEMP 35.8; O2SAT 98–100; BMI 39.9
--- NOTE | 2022-07-27 18:50 | ED.RECABL ---
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 Sent in by Cardiology office for possible high potassium. Patient and daughter unsure if it was blood specimen from this past Saturday or today. Patient had outpatient transesophageal echocardiogram at [facility] from her cardiology provider that works at [employer] as well as [employer]. Patient denies being on potassium replacement. Has been over a year. Does have history of renal insufficiency but no dialysis. Denies any palpitations vision changes numbness tingling or weakness. No nausea vomiting or diarrhea. Related Data Home Medications Medication Instructions Recorded Confirmed furosemide 40 mg tablet 40 mg PO DAILY 05/31/19 04/11/20 lovastatin 40 mg tablet 40 mg PO QPM 05/31/19 04/11/20 venlafaxine 150 mg 150 mg PO DAILY 05/31/19 04/11/20 capsule,extended release 24 hr levothyroxine 50 mcg tablet 50 mcg PO DAILY 06/23/19 04/11/20 potassium chloride 20 mEq 20 meq PO DAILY 06/23/19 04/11/20 tablet,extended release venlafaxine 75 mg capsule,extended 75 mg PO DAILY 06/23/19 04/11/20 release 24 hr lisinopril 10 mg tablet 10 mg PO BID 04/11/20 04/11/20 metoprolol succinate 50 mg capsule 50 mg PO DAILY 04/11/20 04/11/20 sprinkle, ext. release 24 hr rivaroxaban 15 mg tablet (Xarelto) 15 mg PO DAILY 04/11/20 04/11/20 Allergies Allergy/AdvReac Type Severity Reaction Status Date / Time No Known Drug Allergies Allergy Verified 04/11/20 14:34 Review of Systems Review of Systems Narrative: GENERAL: Denies chills, fatigue, malaise, fever, sweats. HEENT: Denies sinus pain, ear pain, sore throat RESPIRATORY: Denies dyspnea, cough CARDIOVASCULAR: Denies chest pain, palpitations GASTROINTESTINAL: Denies nausea, vomiting, abdominal pain : Denies dysuria, frequency, hematuria MUSCULOSKELETAL: denies muscle or bony pain SKIN: Denies rash, skin lesions NEUROLOGIC: Denies weakness, numbness ROS Unobtainable: All systems reviewed & are unremarkable except as noted in HPI and below Patient History Medical History Congestive heart failure Degenerative joint disease (DJD) of hip Facet arthropathy, lumbar Gout Lumbosacral spondylosis with radiculopathy Surgical History H/O mitral valve replacement Family History Mother Pancreatic cancer Father Diabetes mellitus Social History household members: spouse Smoking Status: Former smoker alcohol intake: current Smoking Status: Former smoker alcohol intake frequency: holidays/special occasions only Substance Use Type: does not use Exam Narrative Exam Narrative: GENERAL: in no distress, not toxic not dyspneic HEAD: Normocephalic. EYES: Pupils equal round No scleral icterus. ENT: Mucous membranes moist. NECK: Trachea midline. CARDIOVASCULAR: Regular rate and rhythm without murmurs RESPIRATORY: Clear to auscultation. Breath sounds equal bilaterally. No wheezes, rales, or rhonchi. GASTROINTESTINAL: Abdomen soft, non-tender NEURO: AOx4. SKIN: Warm and dry PSYCH: Not anxious, is cooperative Initial Vital Signs Initial Vital Signs: Vital Signs Temperature 96.5 F L 07/27/22 18:20 Pulse Rate 73 07/27/22 18:20 Respiratory Rate 18 07/27/22 18:20 Blood Pressure 103/58 L 07/27/22 18:20 Pulse Oximetry 98 07/27/22 18:20 Oxygen Delivery Method 07/27/22 18:20 Course Course Course Narrative: No new issues during course of stay Orders Ordered: ED Orders 07/27/22 23:15 BMP [Basic Metabolic Panel] Stat 07/28/22 01:39 Basic Metabolic Panel Stat Discontinued Medications Sodium Chloride (Normal Saline 0.9%) 1,000 mls @ 1,000 mls/hr IV BOLUS ONE Stop: 07/27/22 22:09 Last Infusion: 07/27/22 22:58 Dose: 0 mls/hr Documented By: Admin: 07/27/22 21:31 Dose: 1,000 mls/hr Documented By: MYCHAL Sodium Chloride (Normal Saline 0.9%) 1,000 mls @ 1,000 mls/hr IV BOLUS ONE Stop: 07/28/22 00:42 Last Infusion: 07/28/22 01:59 Dose: 0 mls/hr Documented By: Admin: 07/28/22 00:20 Dose: 1,000 mls/hr Documented By: RADHA Reevaluation(s) Reevaluation #1: Repeat BMP after 1 L normal saline improved potassium down to 5.5 and improved creatinine. Reviewed this with patient and daughter. Patient likely stressed her kidneys after fasting. For her echocardiogram procedure/trans esophageal echocardiogram. They agree for 2 L of normal saline and repeat BMP Time: 23:44 Reevaluation #2: Patient remains asymptomatic from laboratory results of hyperkalemia. Repeat renal function improved after 2 L normal saline. Potassium has reduced down to 5.0. I did review with patient. She does need to see her family doctor on Saturday for re-evaluation and possible referral to nephrology. Time: 02:29 Consultations Consultation #1: Spoke with Dr. Celeste, on-call for primary care group. He will contact the office on Saturday for patient to be followed up regarding the laboratory studies this evening. Time: 07:05 Vital Signs Vital signs: Vital Signs - 8 hr 07/27/22 23:56 07/27/22 23:58 07/27/22 23:58 Pulse Rate 83 80 Respiratory Rate 35 H 29 H Blood Pressure 117/58 L Pulse Oximetry Oxygen Delivery Method 07/28/22 00:00 07/28/22 00:30 07/28/22 01:00 Pulse Rate 77 72 75 Respiratory Rate 27 H Blood Pressure Pulse Oximetry Oxygen Delivery Method 07/28/22 01:30 07/28/22 02:00 07/28/22 02:30 Pulse Rate 78 79 81 Respiratory Rate Blood Pressure Pulse Oximetry Oxygen Delivery Method 07/28/22 02:49 Pulse Rate 64 Respiratory Rate 16 Blood Pressure 128/75 Pulse Oximetry 97 Oxygen Delivery Method Room Air MDM - Recheck/Abnormal Lab/Rx Differential Diagnosis Differential diagnosis: Likely other (Hyperkalemia/electrolyte imbalance) Lab Data Result diagrams: 07/28/22 01:39 Labs: Lab Results 07/27/22 07/27/22 07/27/22 Range/Units 19:04 19:04 23:15 Sodium 139 140 (137-145) mmol/L Potassium 6.0 H 5.5 H (3.4-5.1) mmol/L Chloride 110 H 112 H (98-107) mmol/L Carbon Dioxide 19 L 18 L (22-32) mmol/L BUN 63 H 61 H (7-17) mg/dL Creatinine 1.99 H 1.79 H (0.52-1.04) mg/dL Estimated GFR 25 L 29 L (>60) mL/min BUN/Creatinine Ratio 31.7 H 34.1 H (6-22) Glucose 133 H 123 H (80-110) mg/dL Calcium 8.7 8.2 L (8.4-10.2) mg/dL Magnesium 1.7 (1.6-2.3) mg/dL Total Bilirubin 0.6 (0.2-1.3) mg/dL AST 26 (14-36) IU/L ALT 23 (<35) IU/L Alkaline Phosphatase 91 (38-126) U/L Total Protein 7.2 (6.3-8.2) g/dL Albumin 4.0 (3.5-5.0) g/dL Globulin 3.2 (1.7-4.1) g/dL Albumin/Globulin Ratio 1.3 (1.0-2.8) 07/28/22 Range/Units 01:39 Sodium 139 (137-145) mmol/L Potassium 5.0 (3.4-5.1) mmol/L Chloride 117 H (98-107) mmol/L Carbon Dioxide 17 L (22-32) mmol/L BUN 58 H (7-17) mg/dL Creatinine 1.66 H (0.52-1.04) mg/dL Estimated GFR 32 L (>60) mL/min BUN/Creatinine Ratio 34.9 H (6-22) Glucose 121 H (80-110) mg/dL Calcium 7.8 L (8.4-10.2) mg/dL Magnesium (1.6-2.3) mg/dL Total Bilirubin (0.2-1.3) mg/dL AST (14-36) IU/L ALT (<35) IU/L Alkaline Phosphatase (38-126) U/L Total Protein (6.3-8.2) g/dL Albumin (3.5-5.0) g/dL Globulin (1.7-4.1) g/dL Albumin/Globulin Ratio (1.0-2.8) ECG Data Interpretation: Normal sinus rhythm rate [address] elevation or depression. No peaked T-waves MDM Narrative Medical decision making narrative: Appropriate for discharge home. Exam and laboratory studies are reassuring at this time. Patient improved remarkably after IV hydration. Patient remained asymptomatic even before coming to the hospital. Patient does have primary care to follow up with in 2 days on Saturday and likely need referral to nephrology. Return precautions reviewed with her. She desires discharge home. 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 May continue home medications. Return if worse if any questions or concerns. Prescriptions: No Action venlafaxine 150 mg capsule,extended release 24hr 150 mg PO DAILY Label Comments: with 75 mg to = 225 mg lovastatin 40 mg tablet 40 mg PO QPM furosemide 40 mg tablet 40 mg PO DAILY venlafaxine 75 mg capsule,extended release 24hr 75 mg PO DAILY levothyroxine 50 mcg tablet 50 mcg PO DAILY potassium chloride 20 mEq tablet extended release 20 meq PO DAILY metoprolol succinate 50 mg capsule,sprinkle,ER 24hr 50 mg PO DAILY lisinopril 10 mg tablet 10 mg PO BID Xarelto 15 mg tablet 15 mg PO DAILY Rx Instructions: must administer with evening meal Referrals: Kadie Yuan MD [Primary Care Provider] - Visit Report Forms: Patient Portal/API
[2022-07-27 19:26] LABS: Alanine Aminotransferase 23 IU/L (<35); Albumin Globulin Ratio 1.3 (1.0-2.8); Alkaline Phosphatase 91 U/L (38-126); Aspartate Aminotransferase 26 IU/L (14-36); BUN Creatinine Ratio 31.7 (6-22); Bilirubin Total 0.6 mg/dL (0.2-1.3); Blood Urea Nitrogen 63 mg/dL (7-17); Calcium 8.7 mg/dL (8.4-10.2); Carbon Dioxide 19 mmol/L (22-32); Chloride 110 mmol/L (98-107); Estimated Glomerular Filt Rate 25 mL/min (>60); Globulin 3.2 g/dL (1.7-4.1); Glucose 133 mg/dL (80-110); HEMOLYSIS < 15 (0-50); Magnesium 1.7 mg/dL (1.6-2.3); Sodium 139 mmol/L (137-145); Total Protein 7.2 g/dL (6.3-8.2)
[2022-07-27] MEDS: SODIUM CHLORIDE 0.9% 1,000 ML 1000 ML IV (21:31)
[2022-07-27 23:34] LABS: BUN Creatinine Ratio 34.1 (6-22); Blood Urea Nitrogen 61 mg/dL (7-17); Calcium 8.2 mg/dL (8.4-10.2); Carbon Dioxide 18 mmol/L (22-32); Chloride 112 mmol/L (98-107); Estimated Glomerular Filt Rate 29 mL/min (>60); Glucose 123 mg/dL (80-110); HEMOLYSIS 25 (0-50); Sodium 140 mmol/L (137-145)
[2022-07-27 23:36] LABS: Potassium 5.5 mmol/L (3.4-5.1)
[2022-07-28] VITALS (7 sets, daily range): BP systolic 128; BP diastolic 75; PULSE 64–81; RESP 16–27; O2SAT 97
[2022-07-28] MEDS: SODIUM CHLORIDE 0.9% 1,000 ML 1000 ML IV (00:20)
[2022-07-28 02:08] LABS: HEMOLYSIS < 15 (0-50); Sodium 139 mmol/L (137-145)
[2022-07-28 02:10] LABS: BUN Creatinine Ratio 34.9 (6-22); Blood Urea Nitrogen 58 mg/dL (7-17); Calcium 7.8 mg/dL (8.4-10.2); Carbon Dioxide 17 mmol/L (22-32); Chloride 117 mmol/L (98-107); Estimated Glomerular Filt Rate 32 mL/min (>60); Glucose 121 mg/dL (80-110)
== END 2022-07-28 02:49 | disposition home or self-care (01) ==
PROVIDERS: Emergency Provider Emergency Medicine; Family Provider Internal Medicine Cardiovascular Disease; PCP Family Medicine
DX: E87.5 Hyperkalemia (principal); N18.9 Chronic kidney disease, unspecified; R07.9 Chest pain, unspecified
CPT/HCPCS: 36415; 80048; 80053; 83735; 93005; 93010; 96360; 96361; 99284

== ENCOUNTER → 2022-08-13 13:04 | Outpatient (CLI) | payer MEDICARE, SELFPAY ==
[2022-08-13 14:20] LABS: Add Manual Diff / Slide Review NO; Basophils Absolute Auto 100 /uL (0-100); Basophils Percent Auto 0.5 % (0-2); Eosinophils Absolute Auto 200 /uL (0-450); Eosinophils Percent Auto 2.1 % (2-4); Lymphocytes Absolute Auto 3600 /uL (1100-4500); Lymphocytes Percent Auto 32.5 % (25-40); Mean Corpuscular HGB Conc 32.6 % (30-36); Mean Corpuscular Hemoglobin 31.6 PG (26-34); Mean Corpuscular Volume 96.9 fL (80-100); Monocytes Absolute Auto 700 /uL (0-900); Monocytes Percent Auto 6.2 % (3-14); Neutrophils Absolute Auto 6500 /uL (1500-7000); Neutrophils Percent Auto 58.7 % (50-75); Platelet Count 193 X10^3/uL (150-400); Red Blood Cell Count 4.13 X10^6/uL (4.0-5.2); Red Cell Distribution Width 13.7 % (11.6-14.8); White Blood Cell Count 11.1 X10^3/uL (4.5-11.0)
[2022-08-13 14:32] LABS: Alanine Aminotransferase 25 IU/L (<35); Albumin Globulin Ratio 1.5 (1.0-2.8); Alkaline Phosphatase 89 U/L (38-126); Aspartate Aminotransferase 27 IU/L (14-36); BUN Creatinine Ratio 30.5 (6-22); Bilirubin Total 0.5 mg/dL (0.2-1.3); Blood Urea Nitrogen 64 mg/dL (7-17); Calcium 9.2 mg/dL (8.4-10.2); Carbon Dioxide 18 mmol/L (22-32); Chloride 108 mmol/L (98-107); Estimated Glomerular Filt Rate 24 mL/min (>60); Globulin 2.6 g/dL (1.7-4.1); Glucose 109 mg/dL (80-110); HEMOLYSIS < 15 (0-50); Sodium 139 mmol/L (137-145); Total Protein 6.6 g/dL (6.3-8.2)
[2022-08-13 14:36] LABS: Potassium 5.4 mmol/L (3.4-5.1)
== END ==
PROVIDERS: Family Provider Internal Medicine Cardiovascular Disease; PCP Family Medicine; Referring Provider Family Medicine; Visit Provider Family Medicine
DX: E87.5 Hyperkalemia (principal); N18.30 Chronic kidney disease, stage 3 unspecified; E03.9 Hypothyroidism, unspecified; I48.0 Paroxysmal atrial fibrillation; I25.10 Atherosclerotic heart disease of native coronary artery without angina pectoris
CPT/HCPCS: 36415; 80053; 83735; 85025

== ENCOUNTER → 2022-08-20 10:27 | Outpatient (CLI) | payer MEDICARE, SELFPAY ==
[2022-08-20 12:05] LABS: HEMOLYSIS < 15 (0-50)
[2022-08-20 12:12] LABS: Alanine Aminotransferase 25 IU/L (<35); Albumin 3.8 g/dL (3.5-5.0); Albumin Globulin Ratio 1.7 (1.0-2.8); Alkaline Phosphatase 95 U/L (38-126); Aspartate Aminotransferase 25 IU/L (14-36); BUN Creatinine Ratio 23.7 (6-22); Bilirubin Total 0.5 mg/dL (0.2-1.3); Blood Urea Nitrogen 40 mg/dL (7-17); Calcium 8.8 mg/dL (8.4-10.2); Carbon Dioxide 17 mmol/L (22-32); Chloride 110 mmol/L (98-107); Estimated Glomerular Filt Rate 31 mL/min (>60); Globulin 2.3 g/dL (1.7-4.1); Glucose 150 mg/dL (80-110); Potassium 4.9 mmol/L (3.4-5.1); Sodium 140 mmol/L (137-145); Total Protein 6.1 g/dL (6.3-8.2)
[2022-08-20 12:18] LABS: NT-proBNP (BNP-Adult 18+) 1000 pg/mL (<450)
== END ==
PROVIDERS: Family Provider Internal Medicine Cardiovascular Disease; PCP Family Medicine; Referring Provider Family Medicine; Visit Provider Family Medicine
DX: I50.22 Chronic systolic (congestive) heart failure (principal)
CPT/HCPCS: 36415; 80053; 83880

== ENCOUNTER 2023-09-04 12:30 | Outpatient (RCR) | payer MEDICARE, SELFPAY | END 2023-09-04 14:30 | LOC: CAR 12:30 | PROVIDERS: Family Provider Internal Medicine Cardiovascular Disease; PCP Family Medicine; Referring Provider Student in an Organized Health Care Education/Training Program; Visit Provider Student in an Organized Health Care Education/Training Program | DX: Z98.890 Other specified postprocedural states (principal) | CPT/HCPCS: 93798 ==

== ENCOUNTER → 2023-11-15 13:06 | Outpatient (CLI) | payer MEDICARE, SELFPAY ==
--- NOTE | 2023-11-15 13:10 | DI.RAD.S_ITS ---
PROCEDURE: XR CHEST 2V INDICATIONS: ACUTE COUGH SOB TECHNIQUE: 2 views of the chest were acquired. COMPARISON: [facility], CR, XR CHEST 2V, 09/06/2020, 16:54. FINDINGS: Surgical changes and devices: Sternal wires and valve replacement. Lungs and pleura: Mild appearance of increased vascularity. Mediastinum: Mediastinal contours are normal. Heart size is normal. Bones and chest wall: No suspicious bony abnormalities. Soft tissues appear unremarkable. IMPRESSION: Mild appearance of increased vascularity suggestive of edema. Dictated by: Sarah Al M.D. on 11/16/2023 at 16:19 Approved by: Sarah Al M.D. on 11/16/2023 at 16:20
== END ==
PROVIDERS: Family Provider Internal Medicine Cardiovascular Disease; PCP Family Medicine; Referring Provider Family Medicine; Visit Provider Family Medicine
DX: R05.1 Acute cough (principal); R06.02 Shortness of breath
CPT/HCPCS: 71046

== ENCOUNTER 2024-08-25 09:29 | Emergency (ER) | payer MEDICARE, SELFPAY ==
[2024-08-25] VITALS (10 sets, daily range): BP systolic 137–151; BP diastolic 62–79; PULSE 62–70; RESP 16–29; TEMP 36.6; O2SAT 94–100; BMI 36.6
--- NOTE | 2024-08-25 09:39 | DI.CT.S_ITS ---
PROCEDURE: CT CERVICAL SPINE WO CON INDICATIONS: GLF, HEAD INJURY TECHNIQUE: Noncontrast 3 mm thick sections acquired from the skull base to the T4 level. Sagittal and coronal reformats were then constructed. For radiation dose reduction, the following was used: automated exposure control, adjustment of mA and/or kV according to patient size. COMPARISON: None. FINDINGS: Image quality: Excellent. Bones: No fractures or dislocations. Moderate to severe degenerative changes are present within the superior and mid cervical spine including intervertebral disc space narrowing, endplate sclerosis, and osteophytosis. Visualized superior ribs are intact. Soft tissues: Prevertebral soft tissues are normal in thickness. No paravertebral hematomas. No apical pneumothoraces. IMPRESSION: No displaced fracture or traumatic subluxation. Moderate to severe degenerative change. Dictated by: Salome Quesada M.D. on 08/25/2024 at 10:57 Approved by: Salome Quesada M.D. on 08/25/2024 at 11:03
--- NOTE | 2024-08-25 09:39 | DI.CT.S_ITS ---
PROCEDURE: CT HEAD/BRAIN WO CON INDICATIONS: GLF, HEAD INJURY TECHNIQUE: Noncontrast 4.5 mm thick angled axial sections acquired from the foramen magnum to the vertex, with coronal and sagittal reformats. For radiation dose reduction, the following was used: automated exposure control, adjustment of mA and/or kV according to patient size. COMPARISON: [facility], CT, CT HEAD/BRAIN WO CON, 07/05/2019, 16:51. FINDINGS: Image quality: Diagnostic. CSF spaces: Basal cisterns are patent. No extra-axial fluid collections. The ventricles are symmetric in size and shape. Brain: No intracranial bleeds or masses. There is cerebral volume loss for age, with resultant ventricular and sulcal prominence. Encephalomalacia is redemonstrated within the right occipital lobe, similar to the study dated July 05, 2019. There is a new region of encephalomalacia within the right parietal lobe. There are periventricular and deep white matter chronic small vessel ischemic changes. There is intracranial internal carotid artery atherosclerosis. Skull and face: Calvarium and visualized facial bones appear intact, without suspicious lesions. Sinuses: Visualized sinuses and mastoids are clear. IMPRESSION: 1. No acute intracranial findings. 2. Findings likely associated with chronic microvascular ischemic changes and prior right-sided infarcts. Dictated by: Salome Quesada M.D. on 08/25/2024 at 10:55 Approved by: Salome Quesada M.D. on 08/25/2024 at 10:57
--- NOTE | 2024-08-25 09:59 | ED.FALL ---
HPI - Fall General Chief Complaint: Fall Stated Complaint: GLF, Weakness Time Seen by Provider: 08/25/24 09:39 Mode of arrival: EMS History of Present Illness HPI Narrative: 78-year-old female with history of xarelto use, hypertension, hypothyroidism presents by EMS from her independent living facility for evaluation after a ground level fall. Patient has been experiencing some diarrhea from a nonspecific virus that has been present in her living facility. Patient states that she was getting up to get ice for some soda when she felt very weak and lost her balance, falling over. Denies loss of consciousness. Placed in C-collar as a precaution by EMS. Patient denying any pain other than chronic pain in her hips. Related Data Home Medications Medication Instructions Recorded Confirmed furosemide 40 mg tablet 40 mg PO DAILY 05/31/19 04/11/20 lovastatin 40 mg tablet 40 mg PO QPM 05/31/19 04/11/20 venlafaxine 150 mg 150 mg PO DAILY 05/31/19 04/11/20 capsule,extended release 24 hr levothyroxine 50 mcg tablet 50 mcg PO DAILY 06/23/19 04/11/20 potassium chloride 20 mEq 20 meq PO DAILY 06/23/19 04/11/20 tablet,extended release venlafaxine 75 mg capsule,extended 75 mg PO DAILY 06/23/19 04/11/20 release 24 hr lisinopril 10 mg tablet 10 mg PO BID 04/11/20 04/11/20 metoprolol succinate 50 mg capsule 50 mg PO DAILY 04/11/20 04/11/20 sprinkle, ext. release 24 hr rivaroxaban 15 mg tablet (Xarelto) 15 mg PO DAILY 04/11/20 04/11/20 Previous Rx's Medication Instructions Recorded cephalexin 500 mg capsule 500 mg PO Q12H #14 caps 08/25/24 Allergies Allergy/AdvReac Type Severity Reaction Status Date / Time No Known Drug Allergies Allergy Verified 08/25/24 09:37 Patient History Medical History Facet arthropathy, lumbar Degenerative joint disease (DJD) of hip Lumbosacral spondylosis with radiculopathy Congestive heart failure Gout Surgical History H/O mitral valve replacement Family History Mother Pancreatic cancer Father Diabetes mellitus Social History household members: spouse Smoking Status: Former smoker alcohol intake: current Smoking Status: Former smoker alcohol intake frequency: holidays/special occasions only Exam Initial Vital Signs Initial Vital Signs: Vital Signs Temperature 97.9 F 08/25/24 09:30 Pulse Rate 70 08/25/24 09:30 Respiratory Rate 20 08/25/24 09:30 Blood Pressure 144/63 H 08/25/24 09:30 Pulse Oximetry 94 08/25/24 09:30 Oxygen Delivery Method Room Air 08/25/24 09:30 Const: Awake, alert, no acute distress, nontoxic appearing Cardiac: regular rate, regular rhythm RESP: unlabored, clear bilaterally, no wheezing GI: Soft, nontender, nondistended, no rebound, no guarding MSK: No deformity, hips nontender, full range of motion, pulses equal Skin: Warm, Dry, intact, no rashes Neuro: AO x3, CN II-XII grossly intact, moves all extremities Course Orders Ordered: ED Orders 08/25/24 09:39 CT cervical spine wo con Stat CT head/brain wo con Stat 08/25/24 09:47 CMP [Comprehensive Metabolic Panel] Stat Covid-19 + FLU A/B + RSV - PCR Stat Lipase Stat MAG [Magnesium] Stat 08/25/24 10:45 CBC Auto Diff [Complete Blood Count AUTO DIFF] Stat 08/25/24 11:37 UA Complete [Urinalysis and Microscopic] Stat Urine Culture Stat Discontinued Medications Ceftriaxone Sodium 2,000 mg/ (Sodium Chloride) 100 mls @ 200 mls/hr IV NOW ONE Stop: 08/25/24 13:18 Last Admin: 08/25/24 13:32 Dose: 200 mls/hr Documented By: BEE Vital Signs Vital signs: Vital Signs - 8 hr 08/25/24 09:30 08/25/24 09:34 08/25/24 10:01 Temperature 97.9 F Pulse Rate 70 67 63 Respiratory Rate 20 29 H Blood Pressure 144/63 H Pulse Oximetry 94 95 94 Oxygen Delivery Method Room Air 08/25/24 10:02 08/25/24 10:02 08/25/24 10:30 Temperature Pulse Rate 64 62 Respiratory Rate 26 H 19 Blood Pressure 150/69 H Pulse Oximetry 95 95 Oxygen Delivery Method 08/25/24 10:31 08/25/24 10:31 08/25/24 11:00 Temperature Pulse Rate 62 62 Respiratory Rate 17 21 Blood Pressure 141/62 H Pulse Oximetry 96 94 Oxygen Delivery Method 08/25/24 11:01 08/25/24 11:01 08/25/24 13:35 Temperature Pulse Rate 62 70 Respiratory Rate 21 Blood Pressure 137/65 Pulse Oximetry 95 100 Oxygen Delivery Method 08/25/24 13:36 08/25/24 13:36 Temperature Pulse Rate 65 Respiratory Rate 16 Blood Pressure 151/79 H Pulse Oximetry 98 Oxygen Delivery Method Room Air MDM - Fall Lab Data 08/25/24 10:45 08/25/24 09:47 Labs: Lab Results 08/25/24 08/25/24 08/25/24 Range/Units 09:47 10:45 11:37 WBC 10.7 (4.5-11.0) X10^3/uL RBC 3.97 L (4.0-5.2) X10^6/uL Hgb 12.7 (12.0-16.0) g/dL Hct 38.0 (36-46) % MCV 95.8 (80-100) fL MCH 32.0 (26-34) PG MCHC 33.4 (30-36) % RDW 14.0 (11.6-14.8) % Plt Count 146 L (150-400) X10^3/uL Neut % (Auto) 88.5 H (50-75) % Lymph % (Auto) 5.1 L (25-40) % [place] % (Auto) 6.1 (3-14) % Eos % (Auto) 0.0 L (2-4) % Baso % (Auto) 0.3 (0-2) % Neut # (Auto) 9500 H (8054-9203) /uL Lymph # (Auto) 500 L (1775-5767) /uL [place] # (Auto) 600 (0-900) /uL Eos # (Auto) 0 (0-450) /uL Baso # (Auto) 0 (0-100) /uL Sodium 135 L (137-145) mmol/L Potassium 3.8 (3.4-5.1) mmol/L Chloride 104 (98-107) mmol/L Carbon Dioxide 22 (22-32) mmol/L BUN 26 H (7-17) mg/dL Creatinine 1.24 H (0.52-1.04) mg/dL Estimated GFR 44 L (>60) mL/min BUN/Creatinine Ratio 21.0 (6-22) Glucose 178 H (80-110) mg/dL Calcium 8.2 L (8.4-10.2) mg/dL Magnesium 1.8 (1.6-2.3) mg/dL Total Bilirubin 1.4 H (0.2-1.3) mg/dL AST 39 H (14-36) IU/L ALT 21 (<35) IU/L Alkaline Phosphatase 104 (38-126) U/L Total Protein 6.8 (6.3-8.2) g/dL Albumin 3.6 (3.5-5.0) g/dL Globulin 3.2 (1.7-4.1) g/dL Albumin/Globulin Ratio 1.1 (1.0-2.8) Lipase 32 (23-300) U/L Urine Color Yellow Urine Appearance Cloudy Urine pH 6.0 (4.5-8.0) Ur Specific [place] 1.020 (1.000-1.035) Urine Protein 2+ H (Negative) Urine Glucose (UA) Negative (Negative) g/dL Urine Ketones Trace H (NEGATIVE) Urine Occult Blood 3+ H (Negative) Urine Nitrate Positive H (Negative) Urine Bilirubin Negative (NEGATIVE) Urine Urobilinogen 1.0 (0.2) E.U./dL Ur Leukocyte Esterase 1+ H (NEGATIVE) Urine RBC 5-10/hpf H (0-5/HPF) Urine WBC 1-5/hpf (0-5/HPF) Ur Squamous Epith Cells 1-5 /hpf (0-5/HPF) Urine Bacteria Many (>30) H (None) Ur Culture Indicated? Specimen cultured Vol Urine Centrifuged 10ml (spun) SARS-CoV-2 (PCR) Negative (Negative) Influenza A (RT-PCR) Flu a negative (NEGATIVE) Influenza B (RT-PCR) Flu b negative (NEGATIVE) RSV (PCR) Negative (Negative) Imaging Data CT scan - head: Radiologist's Impression: PROCEDURE: CT HEAD/BRAIN WO CON INDICATIONS: GLF, HEAD INJURY TECHNIQUE: Noncontrast 4.5 mm thick angled axial sections acquired from the foramen magnum to the vertex, with coronal and sagittal reformats. For radiation dose reduction, the following was used: automated exposure control, adjustment of mA and/or kV according to patient size. COMPARISON: [facility], CT, CT HEAD/BRAIN WO CON, 07/05/2019, 16:51. FINDINGS: Image quality: Diagnostic. CSF spaces: Basal cisterns are patent. No extra-axial fluid collections. The ventricles are symmetric in size and shape. Brain: No intracranial bleeds or masses. There is cerebral volume loss for age, with resultant ventricular and sulcal prominence. Encephalomalacia is redemonstrated within the right occipital lobe, similar to the study dated July 05, 2019. There is a new region of encephalomalacia within the right parietal lobe. There are periventricular and deep white matter chronic small vessel ischemic changes. There is intracranial internal carotid artery atherosclerosis. Skull and face: Calvarium and visualized facial bones appear intact, without suspicious lesions. Sinuses: Visualized sinuses and mastoids are clear. IMPRESSION: 1. No acute intracranial findings. 2. Findings likely associated with chronic microvascular ischemic changes and prior right-sided infarcts. Dictated by: Salome Quesada M.D. on 08/25/2024 at 10:55 Approved by: Salome Quesada M.D. on 08/25/2024 at 10:57 CT - cervical spine: Radiologist's Impression: PROCEDURE: CT CERVICAL SPINE WO CON INDICATIONS: GLF, HEAD INJURY TECHNIQUE: Noncontrast 3 mm thick sections acquired from the skull base to the T4 level. Sagittal and coronal reformats were then constructed. For radiation dose reduction, the following was used: automated exposure control, adjustment of mA and/or kV according to patient size. COMPARISON: None. FINDINGS: Image quality: Excellent. Bones: No fractures or dislocations. Moderate to severe degenerative changes are present within the superior and mid cervical spine including intervertebral disc space narrowing, endplate sclerosis, and osteophytosis. Visualized superior ribs are intact. Soft tissues: Prevertebral soft tissues are normal in thickness. No paravertebral hematomas. No apical pneumothoraces. IMPRESSION: No displaced fracture or traumatic subluxation. Moderate to severe degenerative change. Dictated by: Salome Quesada M.D. on 08/25/2024 at 10:57 Approved by: Salome Quesada M.D. on 08/25/2024 at 11:03 [facility] Narrative Medical decision making narrative: Ground level fall after losing balance. Patient reports feeling overall poorly after suffering from a nonspecific GI bug that has been going around her facility. Physical exam is fairly unremarkable, no deformity noted, patient reports chronic pain in her hips that is unchanged from baseline. Laboratory work, CT imaging ordered. Laboratory work reviewed, WBC count 10.7, hemoglobin 12.7, platelets 146, sodium 135, potassium 3.8, creatinine 1.27 (baseline 1.6-2), glucose 178, T bili 1.4, AST 39, ALT 21, alk phos 104. Previous lab values from 2021. CT brain shows findings of old infarcts, no acute findings. UA with positive nitrites and many bacteria. This may have contributed to patient's overall feeling of malaise and contributed to the episode today. Patient reassessed, sitting upright in bed, drinking water, in no acute distress. Informed of lab and imaging findings, she was given an empiric dose of Rocephin in the emergency department and will be discharged with Keflex. No recent prior urine cultures for bacterial sensitivity. Patient expressed understanding of plan, she called daughter to pick her up and take her back to her independent facility. Discharge Plan Departure Patient Disposition: Home Clinical Impression: Acute UTI, Fall Instructions: DI for Urinary Tract Infection (UTI) Activity Restrictions/Additional Instructions: Your CT imaging did not show any fractures, bleeding, or misalignment. Your blood work is reassuring with stable kidney function. You did have a urinary tract infection, which may be contributing to your symptoms. Take all of the antibiotics as prescribed. Follow up with your primary care doctor. Prescriptions: New cephalexin 500 mg capsule 500 mg PO Q12H Qty: 14 0RF No Action venlafaxine 150 mg capsule,extended release 24hr 150 mg PO DAILY Patient Comments: with 75 mg to = 225 mg lovastatin 40 mg tablet 40 mg PO QPM furosemide 40 mg tablet 40 mg PO DAILY venlafaxine 75 mg capsule,extended release 24hr 75 mg PO DAILY levothyroxine 50 mcg tablet 50 mcg PO DAILY potassium chloride 20 mEq tablet extended release 20 meq PO DAILY metoprolol succinate 50 mg capsule,sprinkle,ER 24hr 50 mg PO DAILY lisinopril 10 mg tablet 10 mg PO BID Xarelto 15 mg tablet 15 mg PO DAILY Rx Instructions: must administer with evening meal Referrals: Kadie Yuan MD [Primary Care Provider] - Stand Alone Forms: Patient Portal/API/Survey
[2024-08-25 10:12] LABS: Alanine Aminotransferase 21 IU/L (<35); Albumin 3.6 g/dL (3.5-5.0); Albumin Globulin Ratio 1.1 (1.0-2.8); Alkaline Phosphatase 104 U/L (38-126); Aspartate Aminotransferase 39 IU/L (14-36); Bilirubin Total 1.4 mg/dL (0.2-1.3); Blood Urea Nitrogen 26 mg/dL (7-17); Calcium 8.2 mg/dL (8.4-10.2); Carbon Dioxide 22 mmol/L (22-32); Chloride 104 mmol/L (98-107); Estimated Glomerular Filt Rate 44 mL/min (>60); Globulin 3.2 g/dL (1.7-4.1); Glucose 178 mg/dL (80-110); Lipase 32 U/L (23-300); Magnesium 1.8 mg/dL (1.6-2.3); Potassium 3.8 mmol/L (3.4-5.1); Sodium 135 mmol/L (137-145); Total Protein 6.8 g/dL (6.3-8.2)
[2024-08-25 10:13] LABS: HEMOLYSIS 100 (0-50)
[2024-08-25 10:53] LABS: Add Manual Diff / Slide Review NO; Basophils Absolute Auto 0 /uL (0-100); Basophils Percent Auto 0.3 % (0-2); Eosinophils Absolute Auto 0 /uL (0-450); Hemoglobin 12.7 g/dL (12.0-16.0); Lymphocytes Absolute Auto 500 /uL (1100-4500); Lymphocytes Percent Auto 5.1 % (25-40); Mean Corpuscular HGB Conc 33.4 % (30-36); Mean Corpuscular Volume 95.8 fL (80-100); Monocytes Absolute Auto 600 /uL (0-900); Monocytes Percent Auto 6.1 % (3-14); Neutrophils Absolute Auto 9500 /uL (1500-7000); Neutrophils Percent Auto 88.5 % (50-75); Platelet Count 146 X10^3/uL (150-400); Red Blood Cell Count 3.97 X10^6/uL (4.0-5.2); White Blood Cell Count 10.7 X10^3/uL (4.5-11.0)
--- NOTE | 2024-08-25 11:32 | PC.NURSE ---
CCollar removed by Dr Bryant. Josue provided and ambulation trial passed.
[2024-08-25 11:55] LABS: Influenza A - CEPHEID Flu A NEGATIVE (NEGATIVE); Influenza B - CEPHEID Flu B NEGATIVE (NEGATIVE); Respiratory Syncytial Virus Negative (Negative)
[2024-08-25 11:57] LABS: COVID-19 CEPHEID 4-PLEX PCR Negative (Negative)
[2024-08-25 13:03] LABS: Appearance Urine UA CLOUDY; Bilirubin Urine UA NEGATIVE (NEGATIVE); Color Urine UA YELLOW; Glucose Urine UA NEGATIVE (Negative); Ketones Urine UA TRACE (NEGATIVE); Leukocyte Esterase Urine UA 1+ (NEGATIVE); Nitrite Urine UA POSITIVE (Negative); Occult Blood Urine UA 3+ (Negative); Protein Urine UA 2+ (Negative); Urine Volume 10mL (spun)
[2024-08-25 13:05] LABS: Bacteria Urine Many (>30); Culture Indicated Urine Specimen Cultured; RBC Urine 5-10/HPF (0-5/HPF); Squamous Epithelial Cell Urine 1-5 /HPF (0-5/HPF); WBC Urine 1-5/HPF (0-5/HPF)
[2024-08-25] MEDS: cefTRIAXone 2,000 MG in SODIUM CHLORIDE 0.9% 100 ML 200 MG IV (13:32)
== END 2024-08-25 14:00 | disposition home or self-care (01) ==
PROVIDERS: Emergency Provider Emergency Medicine; Family Provider Internal Medicine Cardiovascular Disease; PCP Family Medicine
DX: N39.0 Urinary tract infection, site not specified (principal); S09.90XA Unspecified injury of head, initial encounter; W18.30XA Fall on same level, unspecified, initial encounter
CPT/HCPCS: 0241U; 36415; 70450; 72125; 80053; 81001; 83690; 83735; 85025; 87077; 87086; 87186; 96365; 99284; J0696

== ENCOUNTER → 2025-04-24 11:35 | Outpatient (CLI) | payer MEDICARE, SELFPAY | PROVIDERS: Family Provider Internal Medicine Cardiovascular Disease; PCP Family Medicine; Visit Provider Nurse Practitioner Family | DX: R30.0 Dysuria (principal); N94.9 Unspecified condition associated with female genital organs and menstrual cycle | CPT/HCPCS: 87077; 87086; 87186; 87210 ==

== ENCOUNTER → 2025-07-29 12:25 | Outpatient (CLI) | payer MEDICARE, SELFPAY ==
--- NOTE | 2025-07-29 12:33 | DI.ECHO.S_ITS ---
[facility]---------+ [facility] : : [id number] : : [place] : : [id number] : : Phone: [phone] Echocardiogram Report + + :Name: HELDER CHRISTENSEN Study Date: 07/29/2025 Height: 65 in : :Hospital ReadingLocation: Weight: 230 lb: : Gender: Female BSA: 2.1 m2 : :: 1945 Age: 79 yrs : :Reason For Study: CONGESTIVE HEART FAILURE : :Ordering Physician: SERGE, : :CHASE Performed By: Shaan Simmons : :Referring: CHASE VALENTINE : + + Interpretation Summary POOR PLAX/PSAX DUE TO BODY HABITUS The left ventricle is normal in size. The ejection fraction is estimated to be 50-55%. The right ventricle is mildly dilated. The right ventricular systolic function is normal. There is a bioprosthetic mitral valve. The prosthetic mitral valve is well-seated. Peak velocity across mitral valve about 1.32 m/s and mean gradient about 7.7 mmHg. Previous mean gradient in the range of 5 to 10 mmHg. There is moderate tricuspid regurgitation. Compared to the prior echo exam, there has been no change in TR severity. The right ventricular systolic pressure is estimated to be at least 63 mmHg based on an estimated right atrial pressure of 3 mm Hg. Previously 44 mmHg Compared to the prior echo exam, there has been an increase in the severity of pulmonary hypertension. Mild atherosclerotic plaque(s) in the aortic arch. Procedure: A two-dimensional transthoracic echocardiogram with color flow and Doppler was performed. The study quality was technically adequate. Comparison is made with the echocardiogram of 06/04/2023. The patient was in normal sinus rhythm during the exam. Left Ventricle: The left ventricle is normal in size. There is normal left ventricular wall thickness. There is no thrombus. The ejection fraction is estimated to be 50-55%. Septal motion is consistent with post-operative state. Diastolic function could not be accurately assessed due to confounding valvular disease. Right Ventricle: The right ventricle is mildly dilated. The right ventricular systolic function is normal. Atria: The left atrium is mildly dilated. Right atrial size is normal. There is no Doppler evidence for an interatrial shunt. Mitral Valve: There is a bioprosthetic mitral valve. The prosthetic mitral valve is well-seated. The mitral valve mean gradient is 7.7 mmHg. Peak velocity across mitral valve about 1.32 m/s and mean gradient about 7.7 mmHg. There is trace mitral regurgitation. Aortic Valve: The aortic valve is not well visualized. There is no aortic valve stenosis. No aortic regurgitation is present. Tricuspid Valve: There is tricuspid annular calcification. There is moderate tricuspid regurgitation. The right ventricular systolic pressure is estimated to be at least 63 mmHg based on an estimated right atrial pressure of 3 mm Hg. Compared to the prior echo exam, there has been no change in TR severity. Compared to the prior echo exam, there has been an increase in the severity of pulmonary hypertension. Pulmonic Valve: The pulmonic valve is not well visualized. There is trace pulmonic regurgitation. Great Vessels: The aortic root is normal size. The dimensions of the ascending aorta are normal. Mild atherosclerotic plaque(s) in the aortic arch. The pulmonary is not well visualized. The IVC is of normal diameter and collapses greater than 50% with a sniff. This suggests a low right atrial pressure of 3 mm Hg. Pericardium/ Pleura There is no pericardial effusion. There is no pleural effusion. MMode/2D Measurements & Calculations LVIDd: 4.9 cm LVOT diam: 1.9 cm LVIDs: 3.5 cm Ao root diam: 3.1 cm FS: 28.2 % asc Aorta Diam: 3.3 cm IVSd: 0.92 cm Ao Arch Diam (Prox Trans): 1.8 cm LVPWd: 1.0 cm LV pink. diameter/BSA (cm/m^2): 2.3 LV sys. diameter/BSA (cm/m^2): 1.7 LA A2 area: 28.1 cm2 RA long axis: 5.0 cm LA A4 area: 22.0 cm2 RA area: 18.7 cm2 LA length (vol): 6.4 cm RA vol: 58.7 ml LA vol: 82.0 ml RA : 28.0 ml/m2 LA vol index: 39.1 ml/m2 IVC diam: 1.4 cm RVD1 (basal): 4.7 cm RVD2 (mid): 3.4 cm TAPSE: 2.2 cm Doppler Measurements & Calculations Ao V2 max: 220.7 cm/sec LVOT Max Fabricio: 107.2 cm/sec Ao V2 mean: 133.6 cm/sec LV V1 max P.6 mmHg Ao max P.5 mmHg LV V1 VTI: 22.2 cm Ao mean P.6 mmHg PA(I,D): 1.6 cm2 Ao V2 VTI: 39.7 cm PA(V,D): 1.4 cm2 sev ratio: 0.56 PA indexed to BSA (cm^2/m^2): 0.74 MV E max fabricio: 181.2 cm/sec TR max fabricio: 388.1 cm/sec MV A max fabricio: 124.6 cm/sec TR max P.2 mmHg MV E/A: 1.5 PA V2 max: 131.4 cm/sec Med Peak E' Fabricio: 5.4 cm/sec PA V2 mean: 93.3 cm/sec E/E' med: 33.6 PA mean P.8 mmHg Lat Peak E' Fabricio: 7.0 cm/sec PA pr(Accel): 58.4 mmHg E/E' lat: 25.9 E/e' average: 29.7 MV dec time: 0.45 sec MVA(VTI): 0.85 cm2 MV V2 mean: 132.4 cm/sec SV(LVOT): 61.8 ml MV mean P.7 mmHg MV V2 VTI: 73.1 cm Reading Physician:02:05 PM
== END ==
LOC: ECHO 12:31
PROVIDERS: Family Provider Internal Medicine Cardiovascular Disease; PCP Family Medicine; Referring Provider Family Medicine; Visit Provider Family Medicine
DX: I50.22 Chronic systolic (congestive) heart failure (principal); I07.1 Rheumatic tricuspid insufficiency; I70.0 Atherosclerosis of aorta; Z95.2 Presence of prosthetic heart valve
CPT/HCPCS: 93306